=== PATIENT | male | born 1950 | race Caucasian/White ===

== ENCOUNTER 2021-07-16 13:02 | Outpatient (REF) | payer MEDICARE, SELFPAY ==
[2021-07-16 13:45] LABS: MANUAL DIFF FLAG NO
[2021-07-16 13:53] LABS: Basophils Absolute Auto 0.1 X10*3/uL (0.0-0.2); Basophils Percent Auto 0.8 % (0-2); Eosinophils Absolute Auto 0.6 X10*3/uL (0.0-0.4); Eosinophils Percent Auto 7.3 % (0-4); Hemoglobin 13.9 g/dl (14.0-18.0); Imm Gran Abs Auto 0.02 X10*3/uL (0.00-0.03); Imm Gran Pct Auto 0.3 % (0.0-0.4); Lymphocytes Absolute Auto 1.8 X10*3/uL (1.2-4.9); Lymphocytes Percent Auto 23.2 % (20-40); Mean Corpuscular HGB Conc 33.1 g/dl (31.0-36.0); Mean Corpuscular Hemoglobin 29.8 pg (27.0-33.0); Mean Corpuscular Volume 90.1 fL (80.0-98.0); Mean Platelet Volume 9.4 fL (9.4-12.4); Monocytes Absolute Auto 0.5 X10*3/uL (0.1-1.2); Monocytes Percent Auto 6.5 % (2-11); Neutrophils Absolute Auto 4.8 x10*3/uL (2.0-8.3); Neutrophils Percent Auto 61.9 % (45-73); Platelet Count 325 X10*3/uL (160-400); Red Blood Count 4.66 X10*6/uL (4.60-5.80); White Blood Count 7.7 X10*3/uL (4.8-10.8)
[2021-07-16 14:03] LABS: Appearance Urine CLEAR; Color Urine YELLOW; Glucose Urine UA NEG (NEG); Leukocyte Esterase Urine NEG (NEG); Nitrite Urine NEG (NEG); Specific Gravity - Urine 1.025 (1.005-1.025); Urine Blood NEG (NEG); Urine Ketones NEG (NEG); Urine Protein NEG (NEG-TRACE)
[2021-07-16 14:19] LABS: Alanine Aminotransferase 28 U/L (0-40); Albumin Level 4.4 g/dL (3.5-5.0); Alkaline Phosphatase 83 U/L (39-117); Anion Gap 15 (12-20); Aspartate Amino Transferase 17 U/L (5-37); Bilirubin Total 0.5 mg/dL (0.0-1.0); Blood Urea Nitrogen 18 mg/dL (9-16); Calcium 9.6 mg/dL (8.4-10.2); Carbon Dioxide 22 mmol/L (22-29); Chloride 106 mmol/L (96-108); Cholesterol 166 mg/dL; Estimated Glomerular Filt Rate > 60; Glucose Fasting 106 mg/dL (60-99); HDL Cholesterol 51 mg/dL; LDL Cholesterol Calculated 100 mg/dl; Potassium 4.4 mmol/L (3.3-5.1); Sodium 139 mmol/L (135-145); Total Protein 7.2 g/dL (6.5-8.0); Triglycerides 75 mg/dL
[2021-07-16 14:33] LABS: Prostate Specific Antigen Scr 1.01 ng/mL (<0.05-4.0); TSH reflex Free T4 1.77 uIU/mL (0.32-4.0); Vitamin D 25-OH Total 44.5 ng/mL (>30)
== END 2021-07-16 13:03 | disposition home or self-care (01) ==
LOC: HO.HMGCLDS 13:02
PROVIDERS: Visit Provider Internal Medicine
DX: Z00.00 Encounter for general adult medical examination without abnormal findings (principal); Z12.5 Encounter for screening for malignant neoplasm of prostate; I10 Essential (primary) hypertension; E78.00 Pure hypercholesterolemia, unspecified; E55.9 Vitamin D deficiency, unspecified
CPT/HCPCS: 36415; 80053; 80061; 81003; 82306; 84153; 84443; 85025

== ENCOUNTER 2021-08-13 16:10 | Outpatient (REF) | payer MEDICARE, SELFPAY ==
--- NOTE | ~2021-08-13 | XR_ITS ---
EXAMINATION: XR CHEST CLINICAL INFORMATION: Chest pain COMPARISON: None TECHNIQUE: 2 views of the chest were obtained. FINDINGS: A thoracic kyphosis is present with degenerative changes in the spine. Otherwise, no significant abnormality is noted involving the heart, lungs, mediastinum, bony thorax or soft tissues. XR/XR chest 2V IMPRESSION: No acute intrathoracic disease
== END 2021-08-13 16:11 | disposition home or self-care (01) ==
LOC: HO.HMGCX 16:10
PROVIDERS: PCP Internal Medicine; Visit Provider Internal Medicine
DX: R07.89 Other chest pain (principal); M41.9 Scoliosis, unspecified; L57.0 Actinic keratosis
CPT/HCPCS: 71046

== ENCOUNTER 2022-01-23 13:19 | Outpatient (REF) | payer MEDICARE, SELFPAY ==
[2022-01-23 16:23] LABS: MANUAL DIFF FLAG NO
[2022-01-23 16:27] LABS: Basophils Absolute Auto 0.1 X10*3/uL (0.0-0.2); Basophils Percent Auto 0.9 % (0-2); Eosinophils Absolute Auto 0.5 X10*3/uL (0.0-0.4); Eosinophils Percent Auto 6.9 % (0-4); Hematocrit 41.8 % (42.0-52.0); Hemoglobin 13.7 g/dl (14.0-18.0); Imm Gran Abs Auto 0.02 X10*3/uL (0.00-0.03); Imm Gran Pct Auto 0.3 % (0.0-0.4); Lymphocytes Absolute Auto 1.4 X10*3/uL (1.2-4.9); Lymphocytes Percent Auto 20.3 % (20-40); Mean Corpuscular HGB Conc 32.8 g/dl (31.0-36.0); Mean Corpuscular Hemoglobin 29.9 pg (27.0-33.0); Mean Corpuscular Volume 91.3 fL (80.0-98.0); Mean Platelet Volume 9.8 fL (9.4-12.4); Monocytes Absolute Auto 0.4 X10*3/uL (0.1-1.2); Monocytes Percent Auto 5.9 % (2-11); Neutrophils Absolute Auto 4.6 x10*3/uL (2.0-8.3); Neutrophils Percent Auto 65.7 % (45-73); Platelet Count 332 X10*3/uL (160-400); Red Blood Count 4.58 X10*6/uL (4.60-5.80); Red Cell Distribution Width 12.8 % (11.0-16.0)
[2022-01-23 16:37] LABS: Appearance Urine Clear; Color Urine Yellow; Glucose Urine UA Negative (Negative); Leukocyte Esterase Urine Negative (Negative); Nitrite Urine Negative (Negative); PH 6.5 (5.0-9.0); Specific Gravity - Urine 1.015 (1.005-1.025); Urine Blood Negative (Negative); Urine Ketones Negative (Negative); Urine Protein Negative (Neg-Trace)
[2022-01-23 16:40] LABS: Alanine Aminotransferase 23 U/L (0-40); Albumin Level 4.3 g/dL (3.5-5.0); Alkaline Phosphatase 80 U/L (39-117); Anion Gap 17 (12-20); Aspartate Amino Transferase 18 U/L (5-37); Bilirubin Total 0.7 mg/dL (0.0-1.0); Blood Urea Nitrogen 16 mg/dL (9-16); Calcium 9.1 mg/dL (8.4-10.2); Carbon Dioxide 24 mmol/L (22-29); Chloride 104 mmol/L (96-108); Cholesterol 160 mg/dL; Estimated Glomerular Filt Rate > 60; Glucose Fasting 103 mg/dL (60-99); HDL Cholesterol 53 mg/dL; LDL Cholesterol Calculated 92 mg/dl; Potassium 4.5 mmol/L (3.3-5.1); Sodium 140 mmol/L (135-145); Triglycerides 78 mg/dL
[2022-01-23 17:02] LABS: TSH reflex Free T4 1.52 uIU/mL (0.32-4.0)
== END 2022-01-23 13:20 | disposition home or self-care (01) ==
LOC: HO.HMGCLDS 13:19
PROVIDERS: PCP Internal Medicine; Visit Provider Internal Medicine
DX: E78.00 Pure hypercholesterolemia, unspecified (principal); E55.9 Vitamin D deficiency, unspecified; I10 Essential (primary) hypertension
CPT/HCPCS: 36415; 80053; 80061; 81003; 82306; 84443; 85025

== ENCOUNTER 2022-02-11 11:49 | Day surgery (SDC) | payer MEDICARE, SELFPAY ==
[2022-02-05 15:03] VITALS: BMI 23.6
--- NOTE | 2022-02-10 12:08 | HO.ANESPROP2 ---
Documented by User: Margarita Ocasio NP 02/10/22 12:10 HPI - Anesthesia Eval Consult details Narrative: 71yo M for Upper Endoscopy PMFSH Active Problems Active Problems: All Active Problems (Updated 11/06/21 @ 16:29 by Jones Payne MD) Annual physical exam (Acute) Keratosis (Acute) Chest heaviness (Acute) Branch retinal vein occlusion (Acute) Vitamin D deficiency (Acute) Washington's esophagus with dysplasia (Acute) Kyphoscoliosis (Acute) Eosinophilia (Acute) Pure hypercholesterolemia (Acute) Benign essential hypertension (Acute) GERD without esophagitis (Acute) Past Medical History Medical History Washington's esophagus with dysplasia Benign essential hypertension Eosinophilia GERD without esophagitis Kyphoscoliosis Pure hypercholesterolemia Vitamin D deficiency Family History Family History Father Dementia Mother Heart disease Surgical History Surgical History H/O colonoscopy History of esophagogastroduodenoscopy (EGD) Hx of appendectomy (~1978) Social History Social History Housing: House Alcohol intake: current Alcohol intake frequency: does not drink Patient Tobacco Use Status: Never used Tobacco e-Cigarette/Vaping Use: Never Used Second Hand Smoke Exposure: Yes Use of substances other than those prescribed or required for medical reasons: No Are you DNR?: No Advance Directives: No Advance Directives Information Provided: Yes Current occupational status: retired Cognitive needs: No Hearing needs: No Vision needs: Yes Meds Allergies Allergy/AdvReac Type Severity Reaction Status Date / Time No Known Allergies Allergy Verified 02/11/22 12:04 Home Medications Medication Instructions Recorded Confirmed Last Taken Type aspirin 81 mg tablet,delayed 81 mg PO DAILY 02/05/22 02/11/22 02/04/22 History release multivitamin 1 tab PO DAILY 02/05/22 02/11/22 Unknown History omega 3-eul-tlz-fish oil 1,200 mg 1 cap PO DAILY 02/05/22 02/11/22 02/04/22 History (144 mg-216 mg) capsule (Fish Oil) Exam Exam Date and Time: February 10, 2022 1208 Height,Weight and Vital Signs: Height 5 ft 8 in Weight 70.307 kg Pertinent Lab Results Pertinent Lab Results: Laboratory Tests 01/23/22 01/23/22 13:27 13:27 WBC 7.0 Hgb 13.7 L Hct 41.8 L Plt Count 332 Sodium 140 Potassium 4.5 Chloride 104 Carbon Dioxide 24 BUN 16 Creatinine 0.92 Assessment and Plan Assessment Anesthesia Assessment: Chart Reviewed Documented by User: Pedro Mason MD 02/11/22 12:36 [facility] Past Medical History Medical History Washington's esophagus with dysplasia Benign essential hypertension Eosinophilia GERD without esophagitis Kyphoscoliosis Pure hypercholesterolemia Vitamin D deficiency Family History Family History Father Dementia Mother Heart disease Family history of problems with anesthesia: No Surgical History Surgical History H/O colonoscopy History of esophagogastroduodenoscopy (EGD) Hx of appendectomy (~1978) History of Problems with Anesthesia: No Social History Social History Housing: House Alcohol intake: current Alcohol intake frequency: does not drink Patient Tobacco Use Status: Never used Tobacco e-Cigarette/Vaping Use: Never Used Second Hand Smoke Exposure: Yes Use of substances other than those prescribed or required for medical reasons: No Are you DNR?: No Advance Directives: No Advance Directives Information Provided: Yes Current occupational status: retired Cognitive needs: No Hearing needs: No Vision needs: Yes Meds Allergies Allergy/AdvReac Type Severity Reaction Status Date / Time No Known Allergies Allergy Verified 02/11/22 12:04 Home Medications Medication Instructions Recorded Confirmed Last Taken Type aspirin 81 mg tablet,delayed 81 mg PO DAILY 02/05/22 02/11/22 02/04/22 History release multivitamin 1 tab PO DAILY 02/05/22 02/11/22 Unknown History omega 8-wkx-pmy-fish oil 1,200 mg 1 cap PO DAILY 02/05/22 02/11/22 02/04/22 History (144 mg-216 mg) capsule (Fish Oil) Exam Airway Mallampati Class: II TM Dist: >3cm Neck ROM: Full Loose/Missing/Broken Teeth: No Heart: [id number] Lungs: cta b/l Assessment and Plan Assessment Anesthesia Assessment: Anesthesia Plan Discussed Final Anesthetic Review Family History of Problems with Anesthesia: No History of Problems with Anesthesia: No NPO: Yes ASA Class: III Final Preanesthetic Review: No Changes in Pt Med Stat, Meds/Allgs Chart Reviewed, Consent Obtained/Reviewed and Anes Risks/Benef Reviewed Patient Risk: Intermediate Procedure Risk: Intermediate Assessment/Block/Sedation in SS: Assess/Block/Sedation-SS Anesthetic Plan Anesthetic Plan: MAC: and Agree w/ Assess. and Plan Disposition: Standard PACU
[2022-02-11 12:04] VITALS: BP 160/86; PULSE 104; RESP 16; TEMP 37.3; O2SAT 97; BMI 22.4
[2022-02-11] MEDS: Lactated Ringers 1,000 ML 100 ML IVCONT (12:30)
--- NOTE | 2022-02-11 13:03 | MHC.SHP ---
Pre-Procedural Eval Section A Date of Service: 02/11/22 The patient is an INPATIENT: No Changes since office visit: No Cold of Flu in the past 2 weeks, No New Medical Problems, No Changes in Medication and No Patient answered all questions The History & Physical has been completed within 30 days and I have reviewed it.: No Section B Chief Complaint: barretts Details of Present Illness: see H*P no changes Relevant Family History (Specify if Yes): No Relevant Social History: None Present Medications: see Short Stay Collaborative assessment Medical History: No relevant PMH History of Previous Operations: No relevant previous surgery Allergies: Allergies Allergy/AdvReac Type Severity Reaction Status Date / Time No Known Allergies Allergy Verified 02/11/22 12:04 Review of Systems Sugical H&P ROS: Negative: Constitution, Cardiovascular, Respiratory, Neurological, Psychiatric, Hem-Onc, Allergic/Immunologic, Gastrointestinal, Genitourinary, Musculoskeletal, Integumentary, Endocrine and Eyes/Ears/Nose/Throat Exam Surgical H&P Exam: Normal: HEENT, Normal: Heart, Normal: Lungs, Normal: Extremities, Normal: Abdomen, Normal: Skin and Normal: Neurological Plan Diagnosis/Plan: Unchanged I have reviewed the history and physical and performed a pertinent physical examination on my patient. No changes have occurred unless specified.
--- NOTE | 2022-02-11 13:20 | PM.OP ---
Brief Operative Note Date of Service: 02/11/22 Pre-op diagnosis: barretts Post-op diagnosis: same Surgeon: Eduard Bailey Anesthesia: MAC Was an Concrete Products Dispatcher used for this Procedure?: No Estimated blood loss (mL): 5 Pathology: other Condition: stable Disposition: PACU
[2022-02-11 13:21] VITALS: BP 90/50; PULSE 80; RESP 16; TEMP 36.7; O2SAT 95
[2022-02-11 13:36] VITALS: BP 91/48; PULSE 86; RESP 20; O2SAT 94
[2022-02-11 13:51] VITALS: BP 111/57; PULSE 79; RESP 18; TEMP 36.7; O2SAT 97
--- NOTE | 2022-02-12 01:22 | OP_ITS ---
SURGEON: Eduard Bailey MD INDICATIONS: Washington esophagus. PREOPERATIVE DIAGNOSIS: POSTOPERATIVE DIAGNOSIS: PROCEDURE PERFORMED: Upper endoscopy with biopsy on 02/11/22. ESTIMATED BLOOD LOSS: COMPLICATIONS: ANESTHESIA: Monitored anesthesia care. ASSISTANTS: SPECIMENS: DESCRIPTION OF PROCEDURE: History and physical performed. The risks and benefits of the procedure were explained to the patient. Informed consent was obtained. The patient was placed in the left lateral decubitus position. The Olympus video gastroscope was introduced into the esophagus, stomach, and duodenum. Examination was performed. The scope was removed. He tolerated the procedure well and was returned to the recovery area in stable condition. FINDINGS: Esophagus: The esophagus was normal. There was a 5 mm segment of Washington esophagus extending above the EG junction and a slight nonobstructive Schatzki ring. Biopsies were obtained in all 4 quadrants at the level and just above the EG junction. There were no raised lesions or ulcerated areas. Stomach: The stomach showed no evidence of masses or ulcers. There were multiple benign-appearing less than 5 mm gastric polyps, 2 of these were biopsied. Duodenum: The bulb and second portion were normal. IMPRESSION: Washington esophagus, gastric polyps. RECOMMENDATION: 1. Follow up the biopsy results. 2. Continue omeprazole 20 mg b.i.d. MD ROSE Mcdowell/MAKENZIE / [id number] MTDD
== END 2022-02-11 14:36 | disposition home or self-care (01) ==
PROVIDERS: PCP Internal Medicine; Visit Provider Internal Medicine Gastroenterology
PROC: 0DJ08ZZ Inspection of Upper Intestinal Tract, Via Natural or Artificial Opening Endoscopic (ICD-10-PCS; CPT 43235; principal; 2022-02-11 13:00)
DX: K22.70 Barrett's esophagus without dysplasia (principal); K31.7 Polyp of stomach and duodenum; K21.9 Gastro-esophageal reflux disease without esophagitis; I10 Essential (primary) hypertension; E78.00 Pure hypercholesterolemia, unspecified; Z79.899 Other long term (current) drug therapy; Z79.82 Long term (current) use of aspirin; Z90.49 Acquired absence of other specified parts of digestive tract
CPT/HCPCS: 43239; 88305; 88342

== ENCOUNTER 2022-06-08 10:37 | Outpatient (REF) | payer MEDICARE, SELFPAY ==
[2022-06-08 11:18] LABS: MANUAL DIFF FLAG NO
[2022-06-08 11:43] LABS: Basophils Absolute Auto 0.1 X10*3/uL (0.0-0.2); Basophils Percent Auto 0.6 % (0-2); Eosinophils Absolute Auto 0.4 X10*3/uL (0.0-0.4); Eosinophils Percent Auto 4.9 % (0-4); Hematocrit 42.3 % (42.0-52.0); Imm Gran Abs Auto 0.02 X10*3/uL (0.00-0.03); Imm Gran Pct Auto 0.2 % (0.0-0.4); Lymphocytes Absolute Auto 1.7 X10*3/uL (1.2-4.9); Lymphocytes Percent Auto 21.3 % (20-40); Mean Corpuscular HGB Conc 33.1 g/dl (31.0-36.0); Mean Corpuscular Hemoglobin 29.6 pg (27.0-33.0); Mean Corpuscular Volume 89.4 fL (80.0-98.0); Mean Platelet Volume 9.5 fL (9.4-12.4); Monocytes Absolute Auto 0.4 X10*3/uL (0.1-1.2); Monocytes Percent Auto 5.4 % (2-11); Neutrophils Absolute Auto 5.5 x10*3/uL (2.0-8.3); Neutrophils Percent Auto 67.6 % (45-73); Platelet Count 316 X10*3/uL (160-400); Red Blood Count 4.73 X10*6/uL (4.60-5.80); White Blood Count 8.1 X10*3/uL (4.8-10.8)
[2022-06-08 12:21] LABS: Alanine Aminotransferase 25 U/L (0-40); Albumin Level 4.2 g/dL (3.5-5.0); Alkaline Phosphatase 70 U/L (39-117); Anion Gap 10 (12-20); Aspartate Amino Transferase 15 U/L (5-37); Bilirubin Total 0.6 mg/dL (0.0-1.0); Blood Urea Nitrogen 16 mg/dL (9-16); Calcium 9.2 mg/dL (8.4-10.2); Carbon Dioxide 26 mmol/L (22-29); Chloride 108 mmol/L (96-108); Estimated Glomerular Filt Rate > 60; Glucose Random 102 mg/dL (60-115); Potassium 4.4 mmol/L (3.3-5.1); Sodium 140 mmol/L (135-145); Total Protein 6.7 g/dL (6.5-8.0)
[2022-06-08 12:26] LABS: Erythrocyte Sedimentation Rate 6 MM/HR (0-15)
[2022-06-08 12:34] LABS: Folate 16.7 ng/mL (> or = 4.0); Vitamin B12 364 pg/mL (200-900)
== END 2022-06-08 10:38 | disposition home or self-care (01) ==
LOC: HO.HMGCLDS 10:37
PROVIDERS: PCP Internal Medicine; Visit Provider Internal Medicine
DX: R42 Dizziness and giddiness (principal); I10 Essential (primary) hypertension; E53.8 Deficiency of other specified B group vitamins
CPT/HCPCS: 36415; 80053; 82607; 82746; 84443; 85025; 85652

== ENCOUNTER 2022-06-27 13:47 | Outpatient (REF) | payer MEDICARE, SELFPAY ==
--- NOTE | ~2022-06-27 | XR_ITS ---
EXAMINATION: XR chest 2V CLINICAL INFORMATION: Reason for Exam I10 - Essential (primary) hypertension COMPARISON: Prior chest x-ray 08/13/2021 TECHNIQUE: XR chest 2V Lungs and Daniela: Both lungs are clear. Pleura: Normal. Costophrenic angles are sharp. No pneumothorax. Heart: The heart is normal in size. Mediastinum: The mediastinum is within normal limits.. Bones: Spondylosis of dorsal spine. No fractures. XR/XR chest 2V IMPRESSION: No radiographic evidence of acute cardiopulmonary disease.
== END 2022-06-27 13:48 | disposition home or self-care (01) ==
LOC: HO.HMGCX 13:47
PROVIDERS: PCP Internal Medicine; Visit Provider Internal Medicine
DX: I10 Essential (primary) hypertension (principal); R07.89 Other chest pain; R06.00 Dyspnea, unspecified
CPT/HCPCS: 71046

== ENCOUNTER → 2022-06-30 13:08 | Outpatient (REF) | payer MEDICARE, SELFPAY ==
--- NOTE | 2022-06-30 13:11 | CA_ITS ---
Transthoracic Echocardiogram Patient (Last, First, Middle): Ender Castellanos J Gender: Male Date of : 1950 Age: 71 Procedure Date: 06/30/2022 Procedure Type: Transthoracic Echocardiogram Location: OP Height: 177.8 cm Weight: 70.31 kg BSA: 1.87 m2 Heart Rate: 100 bpm BP: 170 / 70 mmHg Produce Laborer: COMFORT Arnett MD: Jones Payne MD Woven Wood Shade Assembler: Jamie Rothman MD Symptoms: I10 - Essential (primary) hypertension Study Quality: Fair ECG Rhythm: Tachycardia Conclusions: - 1. Normal LV systolic function with grade 1 diastolic dysfunction 2. Normal cardiac valvular Doppler 3. Normal RV systolic pressure 4. No gross pericardial effusion Findings Left Ventricle Normal left ventricular size, thickness, and systolic function. The visually estimated ejection fraction is between 65-70%. Spectral Doppler is indicative of an impaired relaxation filling pattern. E/E prime ratio is <8, consistent with normal filling pressures. Evidence suggests grade I (mild) diastolic dysfunction. Right Ventricle Normal right ventricular cavity size and systolic function. Atria The left atrium is normal in size. There is no evidence of interatrial shunt. The right atrium is normal in size. Aortic Valve Normal aortic valve structure and function. There is no aortic valve stenosis. There is no aortic valve regurgitation. Mitral Valve There is mild anterior mitral leaflet thickening. There is trace mitral valve regurgitation. There is no mitral valve stenosis. Pulmonic Valve The pulmonic valve was not well visualized. Tricuspid Valve Likely normal tricuspid valve structure and function. There is trace tricuspid valve regurgitation. The right ventricular systolic pressure is normal. The right ventricular systolic pressure is 15 mmHg. Normal right atrial pressure. There is no evidence of pulmonary hypertension. Great Vessels All visible segments of the aorta are normal in size. The pulmonary artery was not well visualized. Venous The inferior vena cava is normal in size and collapses greater than 50% with inspiration. Pericardium/Pleural There is no evidence of pericardial effusion. Prior Study Comparison No prior study available for comparison. Measurements 2D Linear Measurements IVSd: 0.90 0.6-0.9/0.6-1.0 cm LVIDd: 4.60 3.9-5.3/4.2-5.9 cm LVIDd Index: 2.46 2.4-3.2/2.2-3.1 cm/m2 LVIDs: 2.08 2.0-3.6 cm LVPWd: 0.96 0.7-1.1 cm LA Diam: 3.40 2.7-3.8/3.0-4.0 cm LAIDs Index: 1.82 1.5-2.3 cm/m2 LV Mass: 179.40 67-162/88-224 g LV Mass Index: 95.94 43-95/49-115 g/m2 LVOT Diam: 2.00 3.0+(-)1.3 cm 2D Systolic Function EF 4C: 69.00 >55% EF 2C: 65.80 >55% EF BiP: 67.30 >55% Mitral Valve MV Pk E: 0.76 MV PK A: 0.96 MV Decel Time: 212.00 E/A: 0.80 E'Lateral: 11.10 E'Medial: 7.51 E/E' Med: 10.10 E/E' Lat: 6.80 PHT: 62.00 MVA PHT: 3.55 Decel [place]: 3.58 Aortic Valve AoV Pk Sg: 1.69 AoV Mn Sg: 1.30 AoV VTI: 0.32 AoV Pk Grad: 11.00 Aov Mn Grad: 7.00 JUAN DIEGO Cont.VTI: 2.18 LVOT LVOT Pk Sg: 1.45 LVOT Mn Sg: 0.85 LVOT VTI: 0.22 LVOT Pk Grad: 8.00 LVOT Mn Grad: 4.00 LVOT Diam: 2.00 LVOT Area: 3.14 Diastolic Function MV Pk E: 0.76 MV Pk A: 0.96 E/A: 0.80 E'Medial: 7.51 E/E' Med: 10.10 E' Laterial: 11.10 E/E' Lat: 6.80 Right Ventricle TAPSE (mm): 28.20 TVS' Sg: 12.10 Tricuspid Valve TR Pk Sg: 1.71 TR Pk Grad: 12.00 RA Press: 3.00 RVSP: 15.00 Great Vessels Aorta Sinus of Valsalva: 3.20 2.0-3.5 cm Ao Asc: 3.20 2.1-3.4 cm Pulmonary Valve PV Pk Sg: 1.76 Peak PV Grad: 12.00 Updated in Other Vendor System with Status of Final Jamie Rothman MD electronically signed on 07/01/2022 4:56:45 PM with status of Final
== END ==
LOC: HO.CARD 13:08
PROVIDERS: PCP Internal Medicine; Visit Provider Internal Medicine
DX: R07.89 Other chest pain (principal); I10 Essential (primary) hypertension
CPT/HCPCS: 93306

== ENCOUNTER 2022-08-12 13:17 | Outpatient (REF) | payer MEDICARE, SELFPAY ==
[2022-08-12 17:10] LABS: Appearance Urine Clear; Color Urine Yellow; Glucose Urine UA Negative (Negative); Leukocyte Esterase Urine Negative (Negative); Nitrite Urine Negative (Negative); PH 5.5 (5.0-9.0); Urine Blood Negative (Negative); Urine Ketones Negative (Negative); Urine Protein Negative (Neg-Trace)
[2022-08-12 17:10] LABS: MANUAL DIFF FLAG NO
[2022-08-12 17:22] LABS: Basophils Absolute Auto 0.1 X10*3/uL (0.0-0.2); Basophils Percent Auto 0.7 % (0-2); Eosinophils Absolute Auto 0.4 X10*3/uL (0.0-0.4); Hematocrit 39.8 % (42.0-52.0); Hemoglobin 13.3 g/dl (14.0-18.0); Imm Gran Abs Auto 0.02 X10*3/uL (0.00-0.03); Imm Gran Pct Auto 0.2 % (0.0-0.4); Lymphocytes Absolute Auto 1.5 X10*3/uL (1.2-4.9); Lymphocytes Percent Auto 17.6 % (20-40); Mean Corpuscular HGB Conc 33.4 g/dl (31.0-36.0); Mean Corpuscular Hemoglobin 30.6 pg (27.0-33.0); Mean Corpuscular Volume 91.7 fL (80.0-98.0); Mean Platelet Volume 9.9 fL (9.4-12.4); Monocytes Absolute Auto 0.5 X10*3/uL (0.1-1.2); Monocytes Percent Auto 5.4 % (2-11); Neutrophils Absolute Auto 6.2 x10*3/uL (2.0-8.3); Neutrophils Percent Auto 72.1 % (45-73); Platelet Count 349 X10*3/uL (160-400); Red Blood Count 4.34 X10*6/uL (4.60-5.80); Red Cell Distribution Width 13.4 % (11.0-16.0); White Blood Count 8.7 X10*3/uL (4.8-10.8)
[2022-08-12 17:34] LABS: Alanine Aminotransferase 25 U/L (0-40); Albumin Level 4.3 g/dL (3.5-5.0); Alkaline Phosphatase 78 U/L (39-117); Anion Gap 14 (12-20); Aspartate Amino Transferase 16 U/L (5-37); Bilirubin Total 0.6 mg/dL (0.0-1.0); Blood Urea Nitrogen 18 mg/dL (9-16); Calcium 9.2 mg/dL (8.4-10.2); Carbon Dioxide 23 mmol/L (22-29); Chloride 108 mmol/L (96-108); Cholesterol 168 mg/dL; Estimated Glomerular Filt Rate > 60; Glucose Fasting 105 mg/dL (60-99); HDL Cholesterol 59 mg/dL; LDL Cholesterol Calculated 96 mg/dl; Potassium 4.7 mmol/L (3.3-5.1); Sodium 140 mmol/L (135-145); Total Protein 6.7 g/dL (6.5-8.0); Triglycerides 69 mg/dL
[2022-08-12 17:50] LABS: TSH reflex Free T4 1.35 uIU/mL (0.32-4.0); Vitamin D 25-OH Total 45.3 ng/mL (>30)
== END 2022-08-12 13:18 | disposition home or self-care (01) ==
LOC: HO.HMGCLDS 13:17
PROVIDERS: PCP Internal Medicine; Visit Provider Internal Medicine
DX: Z00.00 Encounter for general adult medical examination without abnormal findings (principal); I10 Essential (primary) hypertension; E78.00 Pure hypercholesterolemia, unspecified; N40.0 Benign prostatic hyperplasia without lower urinary tract symptoms; R30.0 Dysuria; E55.9 Vitamin D deficiency, unspecified; Z12.5 Encounter for screening for malignant neoplasm of prostate
CPT/HCPCS: 36415; 80053; 80061; 81003; 82306; 84153; 84443; 85025

== ENCOUNTER 2022-09-07 13:52 | Outpatient (REF) | payer MEDICARE, SELFPAY ==
--- NOTE | ~2022-09-07 | US_ITS ---
Renal Doppler was dictated with renal ultrasound.
--- NOTE | ~2022-09-07 | US_ITS ---
EXAMINATION: US RETROPERITONEAL LIMITED (RENAL ONLY)/RENAL DOPPLER CLINICAL INFORMATION: Essential hypertension. COMPARISON: Renal ultrasound 07/11/2007. TECHNIQUE: Real-time imaging of the kidneys. FINDINGS: RENAL ULTRASOUND: Right Kidney: 12.7 x 6.9 x 6.6 cm (SAG x AP x TRV). The kidney is normal in size, contour, and echogenicity. Renal cortical thickness is normal. No renal calculi or hydronephrosis. There are at least 3 anechoic cysts. An upper pole cyst measures 5.2 x 5.0 x 4.9 cm. A midpole cyst measures 6.2 x 5.9 x 5.6 cm. Lower pole cyst measures 2.3 x 2.4 x 2.3 cm. There is mild caliectasis. Left Kidney: 10.9 x 6.0 x 5.4 cm (SAG x AP x TRV). The kidney is normal in size, contour, and echogenicity. Renal cortical thickness is normal. No calculi or focal parenchymal lesions. No hydronephrosis. There is an anechoic cyst in the lower pole measuring 4.8 x 3.0 x 3.0 cm. RENAL DOPPLER: Right Kidney: Peak renal artery velocity proximal renal artery segment measures 214 cm/s, mid segment measures 132 cm/s, and distal segment measures 124 cm/s. The average resistive index is 0.7. Renal aortic ratio cannot be calculated due to elevated mid aorta velocity. Left Kidney: Peak renal artery velocity proximal renal artery measures 159 cm/s, mid segment measures 148 cm/s, and distal segment measures 76 cm/s. Average resistive index is 0.7. Renal aortic ratio cannot be calculated due to elevated mid aorta velocity. Mid aorta velocity measures 130 cm/s. US/US renal BI IMPRESSION: Bilateral renal cysts with mild caliectasis of the right kidney. No echogenic renal calculi or hydronephrosis. Bilateral renal cysts were visualized on previous ultrasound exam 07/11/2007. On renal Doppler exam, there is elevated proximal renal artery velocity of 214 cm/s but other parameters are normal. Findings are suspicious for mild stenosis at the origin. Normal left renal Doppler parameters suggestive of no renal artery stenosis. Elevated mid aortic velocity may be secondary to atherosclerosis and essential hypertension.
== END 2022-09-07 13:53 | disposition home or self-care (01) ==
LOC: HO.HMGCX 13:52
PROVIDERS: PCP Internal Medicine; Visit Provider Internal Medicine
DX: I10 Essential (primary) hypertension (principal)
CPT/HCPCS: 76775; 93975

== ENCOUNTER 2022-12-02 14:34 | Outpatient (AMB) | payer MEDICARE, SELFPAY ==
--- NOTE | 2022-12-02 14:35 | A.OFFVIS_ITS ---
Intake Vital Signs 12/02/22 14:36 Height 5 ft 10 in Weight 151 lb 3.794 oz BMI 21.7 BP 122/64 Blood Pressure Location Lt brachial Position Sitting Pulse 98 Intake Visit Reasons: NPV/Dizziness and giddiness/Elmer Intake Note: NPV w/ EKG Client Services Coordinator Required: No Accompanied by: Self / Same As Patient Allergies No Known Allergies Allergy (Verified 12/02/22 14:38) Medication List - Last Reconciled 12/02/22 by Louis Munoz MD amlodipine 10 mg PO DAILY 90 days aspirin 81 mg PO DAILY atorvastatin 20 mg PO DAILY lisinopril 40 mg PO DAILY 90 days multivitamin 1 tab PO DAILY omega 8-ewo-rkg-fish oil 1,200 (144-216) mg (Fish Oil) 1 cap PO DAILY sertraline 25 mg PO DAILY 90 days trazodone 75 mg (1.5 x 50 mg) PO BEDTIME PRN 90 days HPI HPI Comments History of Present Illness Details Ender is here for consultation regarding feeling dizzy. He states that he has been dizzy for the last 8-9 months or so. Initially, he was was only dizzy during morning times or so but after that started getting dizzy throughout the day. He can happen when he is getting up from sitting position. Also or in other times like when he is bending down. Can also happen when he is rolling in bed and turning his head extra. Overall, difficult to say if it is from blood pressure changes or from vertigo as he also states he is feeling as room spinning around. He gets some chest pressure/discomfort at different times. Sometimes at rest sometimes with food and sometimes exertion. Again very variable presentation. No known coronary disease myocardial infarction. With regard to blood pressure medications, he was on lisinopril in the past and more recently amlodipine as ordered according to him. However, he cannot correlate medication changes with symptoms. [facility] Medical History Washington's esophagus with dysplasia Benign essential hypertension Eosinophilia GERD without esophagitis Kyphoscoliosis Pure hypercholesterolemia Vitamin D deficiency Surgical History H/O colonoscopy History of esophagogastroduodenoscopy (EGD) Hx of appendectomy (~1978) Family History Father Dementia Mother Heart disease Social History Housing: House Alcohol intake: current Alcohol intake frequency: does not drink Patient Tobacco Use Status: Never used Tobacco e-Cigarette/Vaping Use: Never Used Second Hand Smoke Exposure: Yes Current occupational status: retired Cognitive needs: No Hearing needs: No Vision needs: Yes Review of Systems Const Denies chills, Denies daytime sleepiness, Denies fatigue, Denies fever(s), Denies frequent falls, Denies night sweats, Denies snoring, Denies weakness, Denies weight gain and Denies weight loss Eyes Denies loss of vision ENT Denies dizziness and Denies hearing loss Card Denies chest pain, Denies chest pain with activity, Denies syncope, Denies rapid heart rate, Denies edema, Denies claudication, Denies leg edema, Denies lightheadedness, Denies palpitations, Denies dyspnea, Denies dyspnea on exertion and Denies orthopnea Resp Denies cough, Denies excessive phlegm production, Denies dyspnea, Denies dyspnea on exertion, Denies snoring and Denies wheezing GI Denies abdominal pain, Denies hematochezia, Denies change in bowel habits, Denies change in stool character, Denies heartburn, Denies nausea and Denies vomiting Denies hematuria, Denies dysuria and Denies urinary frequency Musc Denies arthralgias, Denies muscle weakness, Denies numbness and Denies tingling Skin/Breast Denies nail changes and Denies rash Neuro Denies Abnormal speech present, Denies dizziness, Denies syncope, Denies frequent falls, Denies loss of vision, Denies memory loss, Denies numbness, Denies tingling and Denies weakness Psych Denies depression and Denies memory loss Endo Denies fatigue and Denies palpitations Aller/Immun Denies wheezing Physical Exam Vital Signs: Last Vital Signs Pulse 98 12/02/22 14:36 BP 122/64 12/02/22 14:36 BMI result Body Mass Index 21.7 Const General: comfortable and no acute distress Orientation/consciousness: patient oriented x3 HEENT Other: Unremarkable Head: Yes normal to inspection Neck Neck: Yes normal visual inspection Chest Chest palpation & inspection: normal inspection of the chest Resp Auscultation: clear to auscultation bilaterally Cardio Palpation: normal PMI Heart sounds: S1 normal heart sound present, S2 normal heart sound present, no gallops, no murmurs and no rubs GI Palpation (GI): Soft to palpation Back/Spine/Pelvis Other: unremarkable Skin General skin exam: no rashes or lesions noted Neuro General: patient oriented x3 Speech: No Abnormal speech present Extrem General: Yes normal to inspection Psych Mental Status: mental status grossly normal Office Procedures EKG Details: EKG with sinus rhythm at 98/Min; rightward axis; cannot exclude old septal infarct; [place] [id number], Complete Assessment & Plan Assessment & Plan (1) Dizziness of unknown cause: Code(s): R42 - Dizziness and giddiness (2) Chest heaviness: Code(s): R07.89 - Other chest pain (3) Benign essential hypertension: Code(s): I10 - Essential (primary) hypertension Plan Echocardiogram with LVEF of 65-70%. Mild diastolic dysfunction but otherwise unremarkable. In the renal ultrasound, description of possible mild stenosis of the ostium on right side. With regard to the dizziness, not clear if it is for blood pressure changes during changing positions or if it is vertigo. We discussed about changing medications but he would rather leave it as is now. Consider ENT consultation for vertigo assessment. Otherwise, can take lisinopril in the morning and amlodipine at nighttime. The nighttime amlodipine can be cut down to 5 mg daily and he can see if he feels any better. If he feels better, then may have to accept a slightly higher blood pressure to avoid symptoms. Otherwise, we will get a carotid ultrasound as well. With regard to the chest heaviness, again variable presentation at random times including rest, with food, with activity. Difficult to say what it is. We will get an exercise stress perfusion imaging study. Based on the test results, we will plan further care. Orders: Orders US carotid duplex BI Today I65.23 - Occlusion and stenosis of bilateral carotid arteries CA stress test Today R07.2 - Precordial pain, R07.89 - Other chest pain NM cardiolite stress test Today R07.2 - Precordial pain, R07.89 - Other chest p ain Coding Level of Care Code New Pt Level 4 (84445) Diagnoses Dizziness of unknown cause R42 Chest heaviness R07.89 Benign essential hypertension I10 CPT Codes EKG - CPT: 25376-[id number], Complete ([id number])
[2022-12-02 14:36] VITALS: BP 122/64; PULSE 98; BMI 21.7
== END 2022-12-02 15:04 | disposition home or self-care (01) ==
PROVIDERS: PCP Internal Medicine; Referring Provider Internal Medicine; Visit Provider Internal Medicine
DX: R42 Dizziness and giddiness (principal); R07.89 Other chest pain; I10 Essential (primary) hypertension
CPT/HCPCS: 93010; 99204

== ENCOUNTER → 2022-12-02 14:34 | Outpatient (BNVA) | payer MEDICARE, SELFPAY | PROVIDERS: PCP Internal Medicine; Referring Provider Internal Medicine; Visit Provider Internal Medicine | DX: R07.89 Other chest pain (principal); R42 Dizziness and giddiness; I10 Essential (primary) hypertension | CPT/HCPCS: 93005; 99202 ==

== ENCOUNTER 2022-12-09 12:52 | Outpatient (REF) | payer MEDICARE, SELFPAY ==
[2022-12-09 15:59] LABS: MANUAL DIFF FLAG NO
[2022-12-09 16:21] LABS: Basophils Percent Auto 0.6 % (0-2); Eosinophils Absolute Auto 0.4 X10*3/uL (0.0-0.4); Eosinophils Percent Auto 5.2 % (0-4); Hematocrit 39.6 % (42.0-52.0); Hemoglobin 13.1 g/dl (14.0-18.0); Imm Gran Abs Auto 0.01 X10*3/uL (0.00-0.03); Imm Gran Pct Auto 0.1 % (0.0-0.4); Lymphocytes Absolute Auto 1.4 X10*3/uL (1.2-4.9); Lymphocytes Percent Auto 19.6 % (20-40); Mean Corpuscular HGB Conc 33.1 g/dl (31.0-36.0); Mean Corpuscular Hemoglobin 30.6 pg (27.0-33.0); Mean Corpuscular Volume 92.5 fL (80.0-98.0); Mean Platelet Volume 9.9 fL (9.4-12.4); Monocytes Absolute Auto 0.4 X10*3/uL (0.1-1.2); Neutrophils Absolute Auto 4.8 x10*3/uL (2.0-8.3); Neutrophils Percent Auto 68.5 % (45-73); Platelet Count 336 X10*3/uL (160-400); Red Blood Count 4.28 X10*6/uL (4.60-5.80); Red Cell Distribution Width 13.3 % (11.0-16.0)
[2022-12-09 16:49] LABS: Appearance Urine Clear; Color Urine Yellow; Glucose Urine UA Negative (Negative); Leukocyte Esterase Urine Negative (Negative); Nitrite Urine Negative (Negative); PH 5.5 (5.0-9.0); Urine Blood Negative (Negative); Urine Ketones Negative (Negative); Urine Protein Negative (Neg-Trace)
[2022-12-09 17:13] LABS: Alanine Aminotransferase 102 U/L (0-40); Albumin Level 4.1 g/dL (3.5-5.0); Alkaline Phosphatase 151 U/L (39-117); Anion Gap 12 (12-20); Aspartate Amino Transferase 21 U/L (5-37); Bilirubin Total 0.5 mg/dL (0.0-1.0); Blood Urea Nitrogen 21 mg/dL (9-16); Calcium 9.7 mg/dL (8.4-10.2); Carbon Dioxide 24 mmol/L (22-29); Chloride 109 mmol/L (96-108); Cholesterol 147 mg/dL; Estimated Glomerular Filt Rate > 60; Glucose Fasting 101 mg/dL (60-99); HDL Cholesterol 58 mg/dL; LDL Cholesterol Calculated 77 mg/dl; Potassium 4.2 mmol/L (3.3-5.1); Sodium 141 mmol/L (135-145); Triglycerides 62 mg/dL
[2022-12-09 17:28] LABS: TSH reflex Free T4 1.63 uIU/mL (0.32-4.0)
== END 2022-12-09 12:53 | disposition home or self-care (01) ==
LOC: HO.HMGCLDS 12:52
PROVIDERS: PCP Internal Medicine; Visit Provider Internal Medicine
DX: R30.0 Dysuria (principal); E78.00 Pure hypercholesterolemia, unspecified; I10 Essential (primary) hypertension
CPT/HCPCS: 36415; 80053; 80061; 81003; 84443; 85025

== ENCOUNTER 2022-12-16 11:35 | Outpatient (REF) | payer MEDICARE, SELFPAY ==
--- NOTE | ~2022-12-16 | US_ITS ---
EXAMINATION: US ABDOMEN COMPLETE CLINICAL INFORMATION: Elevation of levels of liver transaminase levels. COMPARISON: Ultrasound retroperitoneal limited with renal Doppler 09/07/2022. TECHNIQUE: Real-time imaging of the abdominal viscera. FINDINGS: PANCREAS: Normal head and body, the tail is obscured by bowel gas. ABDOMINAL AORTA: The abdominal aorta is normal caliber. Mild atherosclerotic plaque is seen within the abdominal aorta. INFERIOR VENA CAVA: Visualized portions are normal. LIVER: The liver is normal in size. The liver contour is normal. Parenchymal echogenicity is normal. 0.8 x 1.0 x 1.3 cm simple cyst is seen in the left lobe. There is no intrahepatic biliary duct dilatation seen. GALLBLADDER: There are multiple mobile gallstones within the gallbladder. There is mild thickening of the wall of the gallbladder, measuring 0.5 cm. No sonographic Stevenson's sign. The gallbladder is physiologically distended without evidence of polyps or pericholecystic fluid. COMMON BILE DUCT: Normal in caliber in the gena hepatis measuring 0.3 cm in diameter. The proximal common bile duct measures 0.6 cm. RIGHT KIDNEY: There is a mildly complex upper pole cyst measuring 4.4 x 4.5 x 4.6 cm, previously measured 5.2 x 5.0 x 4.9 cm. There is a mildly complex cysts in the mid pole, measures 6.4 x 4.7 x 5.4 cm, previously measured 6.2 x 5.9 x 5.6 cm.. There is a simple 2.1 x 2.1 x 2.2 cm cyst in the mid to lower pole, previously measured 2.3 x 2.4 x 2.3 cm. No hydronephrosis or renal calculi. The kidney measures 13.2 cm in maximum dimension. LEFT KIDNEY: A 2.6 x 2.0 x 1.9 cm simple cyst is seen in the lower pole. No follow-up imaging of this finding is recommended. No hydronephrosis or renal calculi. The kidney measures 10.4 cm in maximum dimension. SPLEEN: Normal. The spleen measures 7.9 cm in maximum dimension. FREE FLUID: None. US/US abdomen complete IMPRESSION: 1. 1.3 cm simple cyst in the left lobe of the liver. No follow-up imaging of this finding is recommended. 2. Cholelithiasis with mild thickening of the wall of the gallbladder. No sonographic Stevenson's sign or pericholecystic fluid. 3. Multiple right renal cysts, as described above. 4. The appearance of the left kidney is within normal limits.
--- NOTE | ~2022-12-16 | US_ITS ---
EXAMINATION: US EXTRACRANIAL CAROTID DUPLEX, BILATERAL CLINICAL INFORMATION: Carotid stenosis. COMPARISON: None available. TECHNIQUE: Real-time ultrasound and Doppler techniques (integrating B-mode 2-D vascular images, Doppler spectral analysis and color-flow Doppler imaging) were utilized to interrogate the extracranial carotid arteries, the vertebral arteries and proximal subclavian arteries bilaterally. The degree of stenosis is determined by criteria similar to NASCET. FINDINGS: Right Side: 1. There is uhct-ir-yumnidsc echogenic atherosclerotic plaque seen in the bifurcation/proximal ICA region. 2. The common carotid artery PSV proximally is 112 cm/s and distally 86 cm/s. 3. The proximal internal carotid artery velocities are 115 cm/s systolic and 28 cm/s diastolic. 4. The proximal external carotid artery PSV is 143 cm/s. 5. The vertebral artery shows antegrade flow. 6. The subclavian artery waveforms are normal. Left Side: 1. There is mild atherosclerotic plaque seen in the bifurcation/proximal ICA region. 2. The common carotid artery PSV proximally is 142 cm/s and distally 108 cm/s. 3. The proximal internal carotid artery velocities are 47 cm/s systolic and 15 cm/s diastolic. 4. The proximal external carotid artery PSV is 140 cm/s. 5. The vertebral artery shows antegradeflow. 6. The subclavian artery waveforms are normal. US/US carotid duplex BI IMPRESSION: 1. RIGHT: Minimal, non-hemodynamically significant stenosis of the proximal right internal carotid artery corresponding to a 0-49% stenosis by velocity criteria. 2. LEFT: Minimal, non-hemodynamically significant stenosis of the proximal left internal carotid artery corresponding to a 0-49% stenosis by velocity criteria.
== END 2022-12-16 11:36 | disposition home or self-care (01) ==
LOC: HO.HMGCX 11:35
PROVIDERS: PCP Internal Medicine; Visit Provider Internal Medicine
DX: R74.01 Elevation of levels of liver transaminase levels (principal); R74.8 Abnormal levels of other serum enzymes; I65.23 Occlusion and stenosis of bilateral carotid arteries
CPT/HCPCS: 76700; 93880

== ENCOUNTER 2022-12-23 13:07 | Outpatient (AMB) | payer MEDICARE, SELFPAY ==
[2022-12-23 13:15] VITALS: BP 112/60; PULSE 100; O2SAT 98; BMI 21.7
--- NOTE | 2022-12-23 13:15 | MHC.PC.OV ---
Vital Signs 12/23/22 13:15 Height 5 ft 10 in Weight 151 lb 4 oz BMI 21.7 BP 112/60 Blood Pressure Location Lt brachial Position Sitting Pulse 100 Pulse Source Pulse Oximeter Pulse Oximetry (%) 98 Oxygen Delivery Method Room Air Intake Visit Reasons: HTN, dizziness, anxiety Vat Operator Required: No Accompanied by: Self / Same As Patient Allergies No Known Allergies Allergy (Verified 12/23/22 14:04) Medication List - Last Reconciled 12/23/22 by Jones Payne MD amlodipine 10 mg PO DAILY 90 days aspirin 81 mg PO DAILY atorvastatin 20 mg PO DAILY lisinopril 40 mg PO DAILY 90 days multivitamin 1 tab PO DAILY omega 8-nvd-unr-fish oil 1,200 (144-216) mg (Fish Oil) 1 cap PO DAILY sertraline 25 mg PO DAILY 90 days trazodone 75 mg (1.5 x 50 mg) PO BEDTIME PRN 90 days Tobacco use date assessed: 12/23/22 Fall risk assessment: No Falls in past year Last assessed Fall Risk: 12/23/22 Dental Screening Dental Screen Date: 12/23/22 Did you have a dental visit in the last 12 months?: Yes Did you have a dental problem in the last 6 months where you did not have access to dental care?: No Was dental information given to patient?: Patient has dentist HPI HTN, dizziness, anxiety HPI Details Patient comes in today for his follow up visit States that he continues to experience recurrent bouts of dizziness and that these occur mostly with changes in position Has also been experiencing increased pain in his right shoulder and feels that the pain is shooting down his right upper arm States that he's had these for a while now and feels like his shoulder pain has been slowly getting worse He denies any recent injury or trauma to his shoulder or arm States that he feels okay otherwise He denies any headaches Denies any chest pains, no SOB No nausea/vomiting, no abdominal pain No change in bowel habits noted Still feels anxious often; admits that he has not started taking his Sertraline yet as he remains concerned about its potential side effects that he read on the PI of the Rx Had his follow up labs done a couple of weeks ago - to discuss his results Recalls that he saw on the patient portal that he is slightly anemic and would like to have this checked out further [facility] Medical History Washington's esophagus with dysplasia Benign essential hypertension Eosinophilia GERD without esophagitis Kyphoscoliosis Pure hypercholesterolemia Vitamin D deficiency Surgical History H/O colonoscopy History of esophagogastroduodenoscopy (EGD) Hx of appendectomy (~1978) Family History Father Dementia Mother Heart disease Social History Housing: House Alcohol intake: current Alcohol intake frequency: does not drink Patient Tobacco Use Status: Never used Tobacco e-Cigarette/Vaping Use: Never Used Second Hand Smoke Exposure: Yes Current occupational status: retired Cognitive needs: No Hearing needs: No Vision needs: Yes Questionnaire PHQ-9 Over the last 2 weeks, how often have you been bothered by any of the following problems? 1. Little interest or pleasure in doing things: not at all 2. Feeling down, depressed, or hopeless: not at all 3. Trouble falling or staying asleep, or sleeping too much: not at all 4. Feeling tired or having little energy: not at all 5. Poor appetite or overeating: not at all 6. Feeling bad about yourself - or that you are a failure or have let yourself or your family down: not at all 7. Trouble concentrating on things, such as reading the newspaper or watching television: not at all 8. Moving or speaking so slowly that other people could have noticed. Or the opposite - being so fidgety or restless that you have been moving around a lot more than usual: not at all 9. Thoughts that you would be better off or of hurting yourself in some way: not at all Total score: 0 Depression Screening Interpretation: Negative 37747 - PHQ-9 Billing: Yes Source: Developed by Drs. Domenico Martin, Kaylah Wiley, Jayce Centeno and colleagues, with an educational raul from [employer]. Thrive Questionnaire Date Thrive assessed: 12/23/22 I am a: Patient What is your living situation today?: I have a steady place to live Within the past 12 months, did the food you bought not last and you didn't have the money to get more?: Never true Within the past 12 months, did you worry whether your food would run out before you got money to buy more?: Never true Do you have trouble paying for medicines?: No Do you have trouble getting transportation to medical appointments?: No Do you have trouble paying your heating and electricity bill?: No Do you have trouble taking care of your child, family member or friend?: No Do you have trouble with day-to-day activities such as bathing, preparing meals, shopping, managing finances, etc.?: No Are you currently unemployed and looking for a job?: No Are you interested in more education?: No Please select the resources that you would like help with: None Currently or been in a relationship where the following occur: no concerns reported AUDIT C Alcohol Use Questionnaire (AUDIT-C) 1. How often do you have a drink containing alcohol?: Never 3. How often do you have six or more drinks on one occasion?: Never Total Score: 0 Score Reviewed/Action Taken: Yes JOSE-7 AMB Questionnaire JOSE-7 Date JOSE - 7 assessed: 12/23/22 Feeling nervous, anxious, or on edge: 0 = Not at all Not being able to stop or control worryin = Not at all Worrying too much about different things: 0 = Not at all Trouble relaxin = Not at all Being so restless that it is hard to sit still: 0 = Not at all Becoming easily annoyed or irritable: 0 = Not at all Feeling afraid as if something awful might happen: 0 = Not at all Total JOSE-7 score (0-4 normal; 5-9 mild; 10-14 moderate; 15-21 severe): 0 Source: Developed by Drs. Domenico Martin, Kaylah Wiley, Jayce Centeno and colleagues, with an educational raul from [employer]. Review of Systems Const Denies chills, Denies fatigue, Denies fever(s) and Denies headache(s) Eyes Denies blurry vision ENT Denies dysphagia, Reports dizziness (recurrent, especially with changes in position), Denies otalgia, Denies headache(s), Denies neck pain, Denies odynophagia and Denies sore throat Card Denies chest pain, Denies palpitations and Denies dyspnea Resp Denies cough and Denies dyspnea GI Denies abdominal pain, Denies constipation, Denies dysphagia, Denies heartburn, Denies diarrhea, Denies nausea, Denies odynophagia and Denies vomiting Denies dysuria, Denies nocturia and Denies urinary frequency Musc Details: (+) right upper arm pain, especially proximally Reports arthralgias (right shoulder) and Denies neck pain Neuro Reports dizziness (recurrent, especially with changes in position) and Denies headache(s) Psych Reports anxiety Endo Denies fatigue and Denies palpitations Physical exam (Primary Care) Vital Signs: Last Vital Signs Pulse 100 12/23/22 13:15 BP 112/60 12/23/22 13:15 Pulse Ox 98 12/23/22 13:15 Oxygen Delivery Method Room Air 12/23/22 13:15 BMI result Body Mass Index 21.7 Tobacco/Smoking Status: Tobacco use Status Tobacco use date assessed 12/23/22 12/23/22 13:23 Patient Tobacco Use Status Never used Tobacco 12/23/22 13:23 e-Cigarette/Vaping Use Never Used 12/23/22 13:23 PHQ-9: PHQ-9 Score PHQ-9: Total score 0 12/29/22 09:10 Depression Screening Interpretation: Negative Thrive Assessment: Date of Thrive Assessment Date Thrive assessed 12/23/22 12/23/22 13:23 Currently or been in a relationship where the following occur: no concerns reported Const General: no acute distress and alert HENMT Ears: TM's normal bilaterally and EAC's normal Throat: Yes posterior oropharynx normal and Yes tonsils normal (no TP congestion) Neck Neck: Yes no lymphadenopathy and Yes supple Thyroid: Thyroid normal Resp Auscultation: clear to auscultation bilaterally, no rales and no wheezes Cardio Rate: regular rate Rhythm: regular rhythm Heart sounds: no murmurs GI Palpation (GI): Soft to palpation and nontender Auscultation: normal bowel sounds General: Yes no CVA tenderness Back/Spine/Pelvis Back: no CVA tenderness Thoracic/Lumbar Spine: kyphosis Skin Rashes: no rashes Extrem General: Yes no clubbing, cyanosis or edema Right upper extremity: shoulder/upper arm Details: tenderness Location: of the A-C joint and of the proximal humerus; no swelling Results Reviewed Results Reviewed: Laboratory Tests 12/09/22 12/09/22 12/09/22 13:00 13:00 13:05 WBC 7.0 Hgb 13.1 L Hct 39.6 L Plt Count 336 Sodium 141 Potassium 4.2 Creatinine 1.03 Estimated GFR > 60 Fasting Glucose 101 H Calcium 9.7 AST 21 ALT 102 H Alkaline Phosphatase 151 H Triglycerides 62 Cholesterol 147 LDL Cholesterol, Calc 77 HDL Cholesterol 58 TSH 1.63 Ur Specific [place] 1.020 Urine Protein Negative Urine Glucose (UA) Negative Urine Blood Negative Assessment and Plan Assessment & Plan (1) Resistant hypertension: Code(s): I10 - Essential (primary) hypertension Plan: Reinforced low sodium diet - goal is systolic BP of at least 130 to 140 mm or less Has been on Lisinopril 40 mg QD and Amlodipine 10 mg QD but he continues to complain of recurrent dizziness, especially with changes in position Chest x-rays and echocardiogram done a few months ago both came back normal Renal doppler done a few months ago also revealed no significant findings - there is elevated proximal renal artery velocity of 214 cm/s but other parameters are normal. Findings are suspicious for mild stenosis at the origin. Normal left renal Doppler parameters suggestive of no renal artery stenosis. Elevated mid aortic velocity may be secondary to atherosclerosis and essential hypertension. He was also referred to cardiology for further evaluation and management and cardiology recommended ENT consultation for possible vertigo Carotid US done revealed no significant hemodynamic findings They have advised patient to try splitting up his BP meds and take his Lisinopril 40 mg in AM and Amlodipine in PM; have also suggested that he try cutting his Amlodipine down to 5 mg QD to see if it will help with his dizziness and if it does, then he is to stay on 5 mg QD He will also be sent for an exercise stress perfusion study for further evaluation (2) Dizziness of unknown cause: Code(s): R42 - Dizziness and giddiness Plan: Work ups done so far, including chest x-rays, echocardiogram, renal doppler and carotid US, all came back normal/negative Patient has been advised bby cardiology to consider see ENT for further evaluation of his dizziness - to r/o vertigo He will also be scheduled for an exercise perfusion study for further evaluation and has been advised to try splitting up his BP meds and take his Lisinopril 40 mg in AM and Amlodipine in PM; have also suggested that he try cutting his Amlodipine down to 5 mg QD to see if it will help with his dizziness and if it does, then he is to stay on 5 mg QD (3) Pure hypercholesterolemia: Code(s): E78.00 - Pure hypercholesterolemia, unspecified Plan: Results of his labs done a couple of weeks ago reviewed and discussed with patient Reinforced low cholesterol diet Continue Atorvastatin 20 mg QD and Fish Oil Capsules 1200 mg BID Will recheck his fasting lipids in 4 months for follow up (4) Washington's esophagus with dysplasia: Code(s): K22.719 - Washington's esophagus with dysplasia, unspecified Plan: Seen on EGD last done on 02/11/2022 (was previously also done on 05/20/2018) - Bx still showed (+) Washington's esophagus with no dysplasia Will need repeat EGD again in 3 years (2024) for follow up Continue Omeprazole 20 mg BID Follow up with GI (Dr. Bailey) as scheduled (5) Kyphoscoliosis: Code(s): M41.9 - Scoliosis, unspecified Plan: Patient's kyphoscoliosis has been progressing over the past few years He has been advised that if this continues to get worse, it can significantly impact his overall lung volume and affect his breathing Chest x-rays in August 2021 revealed (+) thoracic kyphosis with degenerative changes in the spine. Otherwise, no significant abnormality is noted involving the heart, lungs, mediastinum, bony thorax or soft tissues Repeat chest x-rays in June 2022 also came out normal (6) Anemia: Code(s): D64.9 - Anemia, unspecified Qualifiers: Anemia type: unspecified type Qualified Code(s): D64.9 - Anemia, unspecified Plan: His anemia is mostly mild and his iron indices have been normal He does have eosinophilia at times, possibly due to allergies but with his heightened anxiety, he is requesting to have these issues checked out further - states that it is for his own peace of mind Will check Hgb electrophoresis together with his routine follow up labs in 4 months for further evaluation (7) Vitamin D deficiency: Code(s): E55.9 - Vitamin D deficiency, unspecified Plan: Continue Vitamin D3 1000 units QD (8) Right shoulder pain: Code(s): M25.511 - Pain in right shoulder Qualifiers: Chronicity: unspecified Qualified Code(s): M25.511 - Pain in right shoulder Plan: Will send him for x-rays of the right shoulder for further evaluation (9) Right arm pain: Code(s): M79.601 - Pain in right arm Plan: Will send him for x-rays of the right humerus for further evaluation (10) Insomnia: Code(s): G47.00 - Insomnia, unspecified Qualifiers: Insomnia type: unspecified Qualified Code(s): G47.00 - Insomnia, unspecified Plan: Sleep hygiene reinforced He is advised that his recent trouble sleeping may actually be due to his anxiety, which appears to be increasing lately Continue Trazodone 75 mg Q HS (11) Anxiety: Code(s): F41.9 - Anxiety disorder, unspecified Plan: Advised again that his increased anxiety may be a contributor to his current high blood pressure readings as well as his trouble sleeping and even his recurrent dizziness Patient appears to be constantly worried and anxious about everything in general and even the slightest alteration to his daily routine tends to bother him a lot He was started on Sertaline 25 mg QD a couple of months ago but he stopped taking it after a couple of days because it made him feel slightly tired than usual Have advised patient to go back on Sertraline 25 mg QD and that if mild fatigue is his only reaction to the medication, this may be temporary and should improve after a few days with continuation of the medication but he has not yet tried to go back on the Rx Patient states that he would like to think about this some more Plan Follow up in 4 months Orders: Orders XR humerus RT 12/23/22 M25.511 - Pain in right shoulder, M79.601 - Pain in right arm XR shoulder RT min 2V 12/23/22 M25.511 - Pain in right shoulder, M79.601 - Pain in right arm Complete Blood Count Auto Diff 4 Months D64.9 - Anemia, unspecified, I10 - Essential (primary) hypertension Hemoglobin Electrophoresis 4 Months D64.9 - Anemia, unspecified Comprehensive [place]. Panel Fast 4 Months E78.00 - Pure hypercholesterolemia, unspecified Lipid Panel 4 Months E78.00 - Pure hypercholesterolemia, unspecified Vitamin D 25-OH Total 4 Months E55.9 - Vitamin D deficiency, unspecified UA CC w/rflx Micro + Cult 4 Months R30.0 - Dysuria Coding Level of Care Code Est Pt Level 4 (11298) Diagnoses Resistant hypertension I10 Dizziness of unknown cause R42 Pure hypercholesterolemia E78.00 [place]'s esophagus with dysplasia K22.719 Kyphoscoliosis M41.9 Anemia D64.9 Anemia type: unspecified type Vitamin D deficiency E55.9 Right shoulder pain M25.511 Chronicity: unspecified Right arm pain M79.601 Insomnia G47.00 Insomnia type: unspecified Anxiety F41.9
== END 2022-12-23 14:30 | disposition home or self-care (01) ==
PROVIDERS: PCP Internal Medicine; Visit Provider Internal Medicine
DX: I10 Essential (primary) hypertension (principal); K22.719 Barrett's esophagus with dysplasia, unspecified; E55.9 Vitamin D deficiency, unspecified; F41.9 Anxiety disorder, unspecified; R42 Dizziness and giddiness; E78.00 Pure hypercholesterolemia, unspecified; M41.9 Scoliosis, unspecified; D64.9 Anemia, unspecified; M25.511 Pain in right shoulder; M79.601 Pain in right arm; G47.00 Insomnia, unspecified
CPT/HCPCS: 99214

== ENCOUNTER 2022-12-30 12:03 | Outpatient (REF) | payer MEDICARE, SELFPAY ==
--- NOTE | ~2022-12-30 | XR_ITS ---
EXAMINATION: XR SHOULDER, RIGHT XR HUMERUS, RIGHT CLINICAL INFORMATION: Right shoulder and upper arm pain COMPARISON: Chest radiography 06/27/2022, shoulder radiographs 01/14/2018 TECHNIQUE: AP external rotation, Grashey, scapular Y, and axillary views of the right shoulder. AP and lateral views of the right humerus. FINDINGS: Bony mineralization is normal. No fracture or dislocation is seen involving the shoulder. The glenohumeral joint appears intact. There is superior subluxation of the head of the humerus suggesting rotator cuff tear. The acromioclavicular joint projects in normal alignment. There is a spur at the undersurface of the acromion. The periarticular soft tissues appear unremarkable. No fracture or focal osseous lesion is seen in the humerus. The elbow joint appears intact. Soft tissues appear unremarkable. XR/XR shoulder RT min 2V IMPRESSION: No fracture or dislocation. Superior subluxation of the head of the humerus, suspicious for rotator cuff tear.
--- NOTE | ~2022-12-30 | XR_ITS ---
EXAMINATION: XR SHOULDER, RIGHT XR HUMERUS, RIGHT CLINICAL INFORMATION: Right shoulder and upper arm pain COMPARISON: Chest radiography 06/27/2022, shoulder radiographs 01/14/2018 TECHNIQUE: AP external rotation, Grashey, scapular Y, and axillary views of the right shoulder. AP and lateral views of the right humerus. FINDINGS: Bony mineralization is normal. No fracture or dislocation is seen involving the shoulder. The glenohumeral joint appears intact. There is superior subluxation of the head of the humerus suggesting rotator cuff tear. The acromioclavicular joint projects in normal alignment. There is a spur at the undersurface of the acromion. The periarticular soft tissues appear unremarkable. No fracture or focal osseous lesion is seen in the humerus. The elbow joint appears intact. Soft tissues appear unremarkable. XR/XR humerus RT IMPRESSION: No fracture or dislocation. Superior subluxation of the head of the humerus, suspicious for rotator cuff tear.
== END 2022-12-30 12:04 | disposition home or self-care (01) ==
LOC: HO.HMGCX 12:03
PROVIDERS: PCP Internal Medicine; Visit Provider Internal Medicine
DX: M79.601 Pain in right arm (principal); M25.511 Pain in right shoulder
CPT/HCPCS: 73030; 73060

== ENCOUNTER → 2023-01-07 10:19 | Outpatient (REF) | payer MEDICARE, SELFPAY ==
--- NOTE | ~2023-01-07 | NM_ITS ---
Exercise Myocardial perfusion study Indication: Precordial chest pain to evaluate for myocardial ischemia Technique: The patient was brought in for an exercise perfusion study on 01/07/2023. Patient performed exercise as per Magno protocol and was injected 25 mCi of sestamibi was given intravenously one target HR was achieved. Images were obtained using the SPECT gamma camera interlaced with the gating device. Images were obtained in supine position. Resting perfusion study was performed on 01/08/2023. Patient was administered 25 mCi of sestamibi intravenously at rest. Images were then obtained in supine position. Images obtained with and without CT attenuation. Total DLP 82 mGy-cm Images were processed with the software and compared side to side in short axis, horizontal long axis and vertical long axis views. Findings: The stress perfusion study showed non attenuated images show normal uptake of radiotracer in all segments of LV myocardium. Attenuation corrected images show minimally reduced uptake in the apex of the LV myocardium. The gated study shows normal LV systolic function with calculated LVEF of 70%. LV cavity is normal in size. The gated study shows normal systolic wall thickening and contraction of all segments. There is no transient ischemic dilation. Resting study shows no change in perfusion pattern compared to stress perfusion study. Gating at rest reveals normal systolic wall motion with ejection fraction at 71%. The findings are consistent with normal myocardial perfusion. NM/NM urszula perf SPECT rest & str Impression: 1. Normal myocardial perfusion 2. Gated LVEF is 70% 3. Transient ischemic dilatation not present Stress EKG is negative for ischemia
--- NOTE | 2023-01-07 10:22 | CA_ITS ---
Acquisition Time: 2023-01-07 10:53:56 Total Exercise Time: 00:04:59 Test Indications: CP Medications: AMLODIPINE ASA ATORVASTATIN LISINOPRIL SERTRALINE TRAZADONE Protocol: ESTHER Max HR: 133 BPM 89% of Pred: 148 BPM Max BP: 164/064 mmHG Max Work Load: 4.6 METS Exercise stress test exercise 4 min 59 sec of Esther protocopl stage 1 achieving 85% MPHR, without anginal ysmptoms, without arrhythmias, with normotensive response to exercise, with downsloping in lead 3. Nuclear images pending. Test reviewed with Dr. Rothman. Slight horizontal ST depression during exercise and recovery; could be non-specific Referred By: Myah Chaves Overread By: MYAH CHAVES
== END ==
LOC: HO.CARD 10:19
PROVIDERS: PCP Internal Medicine; Visit Provider Internal Medicine
DX: R07.2 Precordial pain (principal); R07.89 Other chest pain
CPT/HCPCS: 78452; 93017; A9500; J0280; J2785

== ENCOUNTER → 2023-01-07 10:22 | Outpatient (BNV) | payer MEDICARE, SELFPAY | PROVIDERS: PCP Internal Medicine; Visit Provider Internal Medicine | DX: R07.2 Precordial pain (principal) | CPT/HCPCS: 78452; 93016; 93018 ==

== ENCOUNTER 2023-01-14 14:05 | Outpatient (REF) | payer MEDICARE, SELFPAY ==
[2023-01-14 16:30] LABS: Alanine Aminotransferase 21 U/L (0-40); Albumin Level 3.9 g/dL (3.5-5.0); Alkaline Phosphatase 65 U/L (39-117); Aspartate Amino Transferase 17 U/L (5-37); Bilirubin Direct 0.1 mg/dL (0.0-0.5); Bilirubin Total 0.4 mg/dL (0.0-1.0); Total Protein 6.5 g/dL (6.5-8.0)
== END 2023-01-14 14:06 | disposition home or self-care (01) ==
LOC: HO.HMGCLDS 14:05
PROVIDERS: PCP Internal Medicine; Visit Provider Internal Medicine
DX: R74.8 Abnormal levels of other serum enzymes (principal); R74.01 Elevation of levels of liver transaminase levels
CPT/HCPCS: 36415; 80076

== ENCOUNTER 2023-02-03 13:54 | Outpatient (AMB) | payer MEDICARE, SELFPAY ==
--- NOTE | 2023-02-03 13:57 | MHC.OFFVIS ---
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 Recently seen for dizziness. This has been present for the last year or so. Initially, he had only the morning hours but then almost throughout the day. Can happen when he is trying to get up from sitting position, bending down extra. Can also however happen when he is rolling in bed and turning his head extra. Not very clear if it is because of blood pressure changes or something like vertigo. These episodes still happen. He has also had some chest discomfort symptoms at different times including at rest, with food, exertion and overall variable. For meds, he has been on lisinopril for a while but over the last year, he has been on amlodipine. He believes that the symptoms of dizziness started well before the amlodipine and hence not related to the medication. [facility] Medical History Washington's esophagus with dysplasia Benign essential hypertension Eosinophilia GERD without esophagitis Kyphoscoliosis Pure hypercholesterolemia Vitamin D deficiency Surgical History History of esophagogastroduodenoscopy (EGD) H/O colonoscopy Hx of appendectomy (~1978) Family History Father Dementia Mother Heart disease Social History Housing: House Alcohol intake: current Alcohol intake frequency: does not drink Patient Tobacco Use Status: Never used Tobacco e-Cigarette/Vaping Use: Never Used Second Hand Smoke Exposure: Yes Current occupational status: retired Cognitive needs: No Hearing needs: No Vision needs: Yes Review of Systems Const Denies weakness ENT Denies dizziness Card Denies chest pain, Denies chest pain with activity, Denies syncope, Denies rapid heart rate, Denies pedal edema, Denies edema, Denies leg edema, Denies lightheadedness, Denies palpitations, Denies dyspnea, Denies dyspnea on exertion and Denies orthopnea Resp Denies cough, Denies dyspnea and Denies dyspnea on exertion GI Denies hematochezia and Denies change in stool character Musc Denies abnormal gait, Denies muscle cramps, Denies muscle weakness, Denies numbness, Denies radiating pain into limb and Denies tingling Neuro Denies abnormal gait, Denies dizziness, Denies syncope, Denies numbness, Denies tingling and Denies weakness Endo Denies palpitations Physical Exam Vital Signs: Last Vital Signs Pulse 82 02/03/23 14:00 BP 132/64 02/03/23 14:00 BMI result Body Mass Index 21.6 Const General: comfortable and no acute distress Orientation/consciousness: patient oriented x3 HEENT Other: Unremarkable Head: Yes normal to inspection Neck Neck: Yes normal visual inspection Chest Chest palpation & inspection: normal inspection of the chest Resp Auscultation: clear to auscultation bilaterally Cardio Palpation: normal PMI Heart sounds: S1 normal heart sound present, S2 normal heart sound present, no gallops, no murmurs and no rubs GI Palpation (GI): Soft to palpation Back/Spine/Pelvis Other: unremarkable Skin General skin exam: no rashes or lesions noted Neuro General: patient oriented x3 Extrem General: Yes normal to inspection Psych Mental Status: mental status grossly normal Assessment & Plan Assessment & Plan (1) Dizziness of unknown cause: Code(s): R42 - Dizziness and giddiness (2) Chest heaviness: Code(s): R07.89 - Other chest pain (3) Benign essential hypertension: Code(s): I10 - Essential (primary) hypertension Plan Cardiac and vascular studies reviewed. Echocardiogram with LVEF of 65-70%. Mild diastolic dysfunction but otherwise unremarkable. In the stress test, he was able to exercise for 4.6 Mets with nonspecific EKG changes. Perfusion imaging was completely normal. He did not get any angina. Carotid ultrasound does not show any significant stenosis. In the renal ultrasound, description of possible mild stenosis of the ostium on right side. With regard to the dizziness, difficult to say if it is blood pressure change causing the symptom or vertigo as the presentation so variable. He can try to cut back on either the amlodipine or lisinopril dosing and see if that helps. Also to stagger the doses so he can take 1 in the morning and the other in the evening or vice versa. If no changes, then probably not the medication. In that case, consider ENT consultation. With regard to the chest heaviness, we would presentation with rest, food, activity. As perfusion imaging is unremarkable, we can clinically monitor for now. If this is more suggestive of exertional discomfort in the future, then reassess. Plan discussed with patient in detail and he understands. Total time spent including review of data, counseling, documentation, coordination care-32 minutes. Coding Level of Care Code Est Pt Level 4 (74020) Diagnoses Dizziness of unknown cause R42 Chest heaviness R07.89 Benign essential hypertension I10
[2023-02-03 14:00] VITALS: BP 132/64; PULSE 82; BMI 21.6
== END 2023-02-03 14:57 | disposition home or self-care (01) ==
PROVIDERS: PCP Internal Medicine; Visit Provider Internal Medicine
DX: R42 Dizziness and giddiness (principal); R07.89 Other chest pain; I10 Essential (primary) hypertension
CPT/HCPCS: 99214

== ENCOUNTER → 2023-02-03 13:54 | Outpatient (BNVA) | payer MEDICARE, SELFPAY | PROVIDERS: PCP Internal Medicine; Visit Provider Internal Medicine | DX: R42 Dizziness and giddiness (principal); R07.89 Other chest pain; I10 Essential (primary) hypertension | CPT/HCPCS: 99212 ==

== ENCOUNTER 2023-04-09 12:23 | Outpatient (REF) | payer MEDICARE, SELFPAY ==
[2023-04-09 13:47] LABS: MANUAL DIFF FLAG NO
[2023-04-09 13:55] LABS: Appearance Urine Clear; Color Urine Yellow; Glucose Urine UA Negative (Negative); Leukocyte Esterase Urine Negative (Negative); Nitrite Urine Negative (Negative); PH 5.5 (5.0-9.0); Specific Gravity - Urine 1.015 (1.005-1.025); Urine Blood Negative (Negative); Urine Ketones Negative (Negative); Urine Protein Negative (Neg-Trace)
[2023-04-09 13:55] LABS: Basophils Absolute Auto 0.1 X10*3/uL (0.0-0.2); Basophils Percent Auto 0.7 % (0-2); Eosinophils Absolute Auto 0.6 X10*3/uL (0.0-0.4); Hematocrit 43.5 % (42.0-52.0); Hemoglobin 14.2 g/dl (14.0-18.0); Imm Gran Abs Auto 0.02 X10*3/uL (0.00-0.03); Imm Gran Pct Auto 0.2 % (0.0-0.4); Lymphocytes Absolute Auto 1.6 X10*3/uL (1.2-4.9); Lymphocytes Percent Auto 20.2 % (20-40); Mean Corpuscular HGB Conc 32.6 g/dl (31.0-36.0); Mean Corpuscular Hemoglobin 29.7 pg (27.0-33.0); Mean Platelet Volume 9.6 fL (9.4-12.4); Monocytes Absolute Auto 0.5 X10*3/uL (0.1-1.2); Monocytes Percent Auto 6.3 % (2-11); Neutrophils Absolute Auto 5.3 x10*3/uL (2.0-8.3); Neutrophils Percent Auto 65.6 % (45-73); Platelet Count 346 X10*3/uL (160-400); Red Blood Count 4.78 X10*6/uL (4.60-5.80); Red Cell Distribution Width 12.6 % (11.0-16.0); White Blood Count 8.1 X10*3/uL (4.8-10.8)
[2023-04-09 14:34] LABS: Calcium 9.4 mg/dL (8.4-10.2); Chloride 108 mmol/L (96-108); Sodium 142 mmol/L (135-145)
[2023-04-09 14:40] LABS: Alanine Aminotransferase 19 U/L (0-40); Albumin Level 4.2 g/dL (3.5-5.0); Alkaline Phosphatase 73 U/L (39-117); Anion Gap 13 (12-20); Aspartate Amino Transferase 14 U/L (5-37); Bilirubin Total 0.3 mg/dL (0.0-1.0); Blood Urea Nitrogen 19 mg/dL (9-16); Carbon Dioxide 25 mmol/L (22-29); Cholesterol 166 mg/dL (<200); Estimated Glomerular Filt Rate > 60; Glucose Fasting 107 mg/dL (60-99); HDL Cholesterol 60 mg/dL (>40); LDL Cholesterol Calculated 94 mg/dL (<100); Total Protein 7.3 g/dL (6.5-8.0); Triglycerides 60 mg/dL (<150)
[2023-04-09 15:57] LABS: Vitamin D 25-OH Total 65.7 ng/mL (>30)
[2023-04-12 15:33] LABS: Hemoglobin 14.3 g/dL (13.2-17.1); MCV 90.3 fL (80.0-100.0); RBC 4.76 Million/uL (4.20-5.80); RDW 12.2 % (11.0-15.0)
== END 2023-04-09 12:24 | disposition home or self-care (01) ==
LOC: HO.HMGCLDS 12:23
PROVIDERS: PCP Internal Medicine; Visit Provider Internal Medicine
DX: I10 Essential (primary) hypertension (principal); D64.9 Anemia, unspecified; E78.00 Pure hypercholesterolemia, unspecified; R30.0 Dysuria; E55.9 Vitamin D deficiency, unspecified
CPT/HCPCS: 36415; 80053; 80061; 81003; 82306; 83020; 85014; 85018; 85025; 85041

== ENCOUNTER 2023-05-20 12:55 | Outpatient (AMB) | payer MEDICARE, SELFPAY ==
--- NOTE | 2023-05-20 13:00 | A.OFFVIS_ITS ---
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 He states his right shoulder hurts more than the left. He had x rays done over the summer. 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 He thinks he may have injured his right shoulder about 3 months ago. He cannot comfortably use his right shoulder for overhead or reaching activities. He describes pain and weakness with such activities. [facility] Medical History Washington's esophagus with dysplasia Benign essential hypertension Eosinophilia GERD without esophagitis Kyphoscoliosis Pure hypercholesterolemia Vitamin D deficiency Surgical History History of esophagogastroduodenoscopy (EGD) H/O colonoscopy Hx of appendectomy (~1978) Family History Father Dementia Mother Heart disease Social History (System 05/17/23 @ 14:02 by Betty Quiles) Housing: House Alcohol intake: current Alcohol intake frequency: does not drink Patient Tobacco Use Status: Never used Tobacco e-Cigarette/Vaping Use: Never Used Second Hand Smoke Exposure: Yes Current occupational status: retired Cognitive needs: No Hearing needs: No Vision needs: Yes Review of Systems Const All systems reviewed & are unremarkable except as noted in HPI and below Physical Exam Const General: no acute distress, alert and awake Orientation/consciousness: patient oriented x3 HEENT Head: Yes normocephalic and Yes atraumatic Eyes EOM: EOMs intact bilaterally Resp Effort & Inspection: normal respiratory effort and able to speak in complete sentences Cardio Jugular venous distension: no JVD Skin General skin exam: turgor normal Rashes: no rashes Neuro General: patient oriented x3 Extrem Other: + drop arm 4/4 strength with ec Psych Appearance: grossly normal Affect: normal affect Attitude: cooperative Results Reviewed Results Reviewed: I personally reviewed relevant radiographs. proximal migration of humeral head Assessment & Plan Assessment & Plan (1) Rotator cuff arthropathy of right shoulder: Code(s): M12.811 - Other specific arthropathies, not elsewhere classified, right shoulder Plan: RTC arthropathy. He feels it was injured just 3 months ago. I think this is highly unlikely but he is adamant. I ordered an MRI to assess his cuff. Plan Prepared for Casimiro Astorga MD by Orlando Duran, senior medical technologist, on 05/20/23 at 1:06 PM, EST. Orders: Orders MR shoulder RT wo con 05/20/23 M12.811 - Other specific arthropathies, not elsewhere classified, right shoulder PT Evaluation and Treatment 05/20/23 M12.811 - Other specific arthropathies, not elsewhere classified, right shoulder Coding Level of Care Code New Pt Level 4 (39788) Diagnoses Rotator cuff arthropathy of right shoulder M12.811
== END 2023-05-20 13:17 | disposition home or self-care (01) ==
PROVIDERS: PCP Internal Medicine; Visit Provider Orthopaedic Surgery
DX: M12.811 Other specific arthropathies, not elsewhere classified, right shoulder (principal)
CPT/HCPCS: 99203

== ENCOUNTER → 2023-05-20 12:55 | Outpatient (BNVA) | payer MEDICARE, SELFPAY | PROVIDERS: PCP Internal Medicine; Visit Provider Orthopaedic Surgery | DX: M12.811 Other specific arthropathies, not elsewhere classified, right shoulder (principal) | CPT/HCPCS: 99202 ==

== ENCOUNTER 2023-06-09 13:45 | Outpatient (REF) | payer MEDICARE, SELFPAY ==
--- NOTE | ~2023-06-09 | MR_ITS ---
EXAMINATION: MR SHOULDER WITHOUT CONTRAST, RIGHT CLINICAL INFORMATION: Right shoulder pain and decreased range of motion following an injury in April 2023. COMPARISON: Right shoulder and right humerus radiographs dated 12/30/2022. TECHNIQUE: MRI of the shoulder without contrast was performed on a high-field scanner. FINDINGS: ROTATOR CUFF: Complete, full-thickness tears of the supraspinatus and infraspinatus tendons measuring up to 5.2 x 6.5 cm (AP by ML) with retraction of the torn tendon fibers proximal to the glenohumeral articulation. Prominent supraspinatus and infraspinatus muscle atrophy. Moderate subscapularis tendinosis with distal linear intrasubstance and bursal surface partial tearing measuring up to 1.7 cm in ML dimension. BICEPS: There appears to be a complete, full-thickness tear of the proximal long head biceps tendon. CORACOACROMIAL ARCH: The undersurface of the acromion is minimally curved with small subchondral spurs. Mild acromioclavicular osteoarthritis. LABRUM/CAPSULE: Blunting and attenuation through the periphery of the labrum diffusely, consistent with degenerative fraying/tearing. GLENOHUMERAL JOINT/MARROW: Superior subluxation of the humeral head related to the rotator cuff tendon tears. Areas of full-thickness articular cartilage loss at the superior humeral head as well as at the inferomedial humeral head. Glenoid articular cartilage signal heterogeneity. Small marginal osteophytes. [id number] joint effusion with mild synovitis. MR/MR shoulder RT wo con IMPRESSION: 1. Complete, full-thickness tears of the supraspinatus and infraspinatus tendons with retraction of the torn tendon fibers proximal to the glenohumeral articulation. Prominent supraspinatus and infraspinatus muscle atrophy. Moderate subscapularis tendinosis with distal linear intrasubstance and bursal surface partial tearing. 2. Complete, full-thickness tear of the proximal long head biceps tendon. 3. Mild acromioclavicular osteoarthritis with small subchondral spurs. 4. Diffuse degenerative fraying/tearing through the periphery of the glenoid labrum. 5. Superior subluxation of the humeral head related to the rotator cuff tendon tears. [id number] glenohumeral osteoarthritis. Moderate to large joint effusion with mild synovitis.
== END 2023-06-09 13:46 | disposition home or self-care (01) ==
LOC: HO.MRI 13:45
PROVIDERS: PCP Internal Medicine; Visit Provider Orthopaedic Surgery
DX: M12.811 Other specific arthropathies, not elsewhere classified, right shoulder (principal)
CPT/HCPCS: 73221

== ENCOUNTER 2023-07-01 14:34 | Outpatient (AMB) | payer MEDICARE, SELFPAY ==
[2023-07-01 14:38] VITALS: BMI 21.5
--- NOTE | 2023-07-01 14:38 | MHC.OFFVIS ---
Intake Vital Signs 07/01/23 14:38 Height 5 ft 10 in Weight 150 lb BMI 21.5 Intake Visit Reasons: OV - Right Shoulder MRI Review Intake Note: Ender is a 72 year old right hand dominant male who presents today for an MRI review of his right shoulder . Allergies No Known Allergies Allergy (Verified 07/01/23 14:38) HPI OV - Right Shoulder MRI Review HPI Details Endre is a 72 year old man who returns for an MRI review of his right RTC arthropathy. He continues to have pain & weakness with overhead & lifting activities. He can abduct his arm to 90 deg however. [facility] Medical History Vitamin D deficiency Washington's esophagus with dysplasia Kyphoscoliosis Eosinophilia Pure hypercholesterolemia Benign essential hypertension GERD without esophagitis Surgical History History of esophagogastroduodenoscopy (EGD) H/O colonoscopy Hx of appendectomy (~1978) Family History Father Dementia Mother Heart disease Social History Housing: House Alcohol intake: current Alcohol intake frequency: does not drink Patient Tobacco Use Status: Never used Tobacco e-Cigarette/Vaping Use: Never Used Second Hand Smoke Exposure: Yes Current occupational status: retired Cognitive needs: No Hearing needs: No Vision needs: Yes Review of Systems Const All systems reviewed & are unremarkable except as noted in HPI and below Physical Exam Vital Signs: BMI result Body Mass Index 21.5 Const General: no acute distress, alert and awake Orientation/consciousness: patient oriented x3 HEENT Head: Yes normocephalic and Yes atraumatic Eyes EOM: EOMs intact bilaterally Resp Effort & Inspection: normal respiratory effort and able to speak in complete sentences Cardio Jugular venous distension: no JVD Skin General skin exam: turgor normal Rashes: no rashes Neuro General: patient oriented x3 Extrem Other: 0-90 with scapular recruitment right shoulder Psych Appearance: grossly normal Affect: normal affect Attitude: cooperative Results Reviewed Results Reviewed: I personally reviewed the MR images. 1. Complete, full-thickness tears of the supraspinatus and infraspinatus tendons with retraction of the torn tendon fibers proximal to the glenohumeral articulation. Prominent supraspinatus and infraspinatus muscle atrophy. Moderate subscapularis tendinosis with distal linear intrasubstance and bursal surface partial tearing. 2. Complete, full-thickness tear of the proximal long head biceps tendon. 3. Mild acromioclavicular osteoarthritis with small subchondral spurs. 4. Diffuse degenerative fraying/tearing through the periphery of the glenoid labrum. 5. Superior subluxation of the humeral head related to the rotator cuff tendon tears. [id number] glenohumeral osteoarthritis. Moderate to large joint effusion with mild synovitis. Assessment & Plan Assessment & Plan (1) Rotator cuff arthropathy of right shoulder: Code(s): M12.811 - Other specific arthropathies, not elsewhere classified, right shoulder Plan: This is a pleasant, healthy and active 72 RHD M with right RTC arthropathy. I discussed this with him and the treatment options including PT, injections and TSA. He is hesitant to contemplate surgery and I discussed the time-frame for recovery. At this point I recommend he continue activity as tolerated and avoid painful lifting/ROM. If his pain worsens he may want to consider injection. He may follow up as needed. Plan Prepared for Casimiro Astorga MD by Orlando Duran, senior medical transcriptionist, on 07/01/23 at 2:41 PM, EST. Coding Level of Care Code Est Pt Level 4 (93325) Diagnoses Rotator cuff arthropathy of right shoulder M12.811
== END 2023-07-01 15:29 | disposition home or self-care (01) ==
PROVIDERS: PCP Internal Medicine; Visit Provider Orthopaedic Surgery
DX: M12.811 Other specific arthropathies, not elsewhere classified, right shoulder (principal)
CPT/HCPCS: 99213

== ENCOUNTER → 2023-07-01 14:34 | Outpatient (BNVA) | payer MEDICARE, SELFPAY | PROVIDERS: PCP Internal Medicine; Visit Provider Orthopaedic Surgery | DX: M12.811 Other specific arthropathies, not elsewhere classified, right shoulder (principal) | CPT/HCPCS: 99212 ==

== ENCOUNTER 2023-08-11 13:14 | Outpatient (REF) | payer MEDICARE, SELFPAY ==
[2023-08-11 16:13] LABS: MANUAL DIFF FLAG NO
[2023-08-11 16:26] LABS: Basophils Absolute Auto 0.1 X10*3/uL (0.0-0.2); Basophils Percent Auto 0.9 % (0-2); Eosinophils Absolute Auto 0.4 X10*3/uL (0.0-0.4); Eosinophils Percent Auto 5.4 % (0-4); Hematocrit 41.2 % (42.0-52.0); Hemoglobin 13.8 g/dl (14.0-18.0); Imm Gran Abs Auto 0.01 X10*3/uL (0.00-0.03); Imm Gran Pct Auto 0.1 % (0.0-0.4); Lymphocytes Absolute Auto 1.7 X10*3/uL (1.2-4.9); Lymphocytes Percent Auto 20.9 % (20-40); Mean Corpuscular HGB Conc 33.5 g/dl (31.0-36.0); Mean Corpuscular Hemoglobin 30.3 pg (27.0-33.0); Mean Corpuscular Volume 90.4 fL (80.0-98.0); Monocytes Absolute Auto 0.5 X10*3/uL (0.1-1.2); Monocytes Percent Auto 5.7 % (2-11); Neutrophils Absolute Auto 5.4 x10*3/uL (2.0-8.3); Platelet Count 351 X10*3/uL (160-400); Red Blood Count 4.56 X10*6/uL (4.60-5.80); Red Cell Distribution Width 13.1 % (11.0-16.0)
[2023-08-11 17:22] LABS: Alanine Aminotransferase 22 U/L (0-40); Albumin Level 4.2 g/dL (3.5-5.0); Alkaline Phosphatase 74 U/L (39-117); Anion Gap 12 (12-20); Aspartate Amino Transferase 15 U/L (5-37); Bilirubin Total 0.6 mg/dL (0.0-1.0); Blood Urea Nitrogen 18 mg/dL (9-16); Calcium 9.2 mg/dL (8.4-10.2); Carbon Dioxide 26 mmol/L (22-29); Chloride 107 mmol/L (96-108); Cholesterol 164 mg/dL (<200); Estimated Glomerular Filt Rate > 60; Glucose Fasting 98 mg/dL (60-99); HDL Cholesterol 57 mg/dL (>40); LDL Cholesterol Calculated 95 mg/dL (<100); Potassium 4.1 mmol/L (3.3-5.1); Sodium 141 mmol/L (135-145); Total Protein 7.1 g/dL (6.5-8.0); Triglycerides 63 mg/dL (<150)
== END 2023-08-11 13:15 | disposition home or self-care (01) ==
LOC: HO.HMGCLDS 13:14
PROVIDERS: PCP Internal Medicine; Visit Provider Internal Medicine
DX: E78.00 Pure hypercholesterolemia, unspecified (principal); D64.9 Anemia, unspecified
CPT/HCPCS: 36415; 80053; 80061; 85025

== ENCOUNTER 2023-08-25 14:17 | Outpatient (AMB) | payer MEDICARE, SELFPAY ==
--- NOTE | 2023-08-25 14:23 | A.OFFPC_ITS ---
Vital Signs 08/25/23 14:25 08/25/23 15:18 Height 5 ft 10 in Weight 153 lb BMI 22.0 BP 110/64 120/76 Blood Pressure Location Lt brachial Lt brachial Position Sitting Sitting Pulse 78 Pulse Source Pulse Oximeter Pulse Oximetry (%) 97 Oxygen Delivery Method Room Air Intake Visit Reasons: follow up, high bp Intake Note: Patient is here to follow up on High Bp, GERD. Corporate Accounting Manager Required: No Receiving Room Clerk: Not Required per policy Accompanied by: Self / Same As Patient Allergies No Known Allergies Allergy (Verified 08/25/23 14:56) Medication List - Last Reconciled 08/25/23 by Jones Payne MD amlodipine 10 mg PO DAILY 90 days aspirin 81 mg PO DAILY lisinopril 40 mg PO DAILY 90 days multivitamin 1 tab PO DAILY omega 3-zen-kzg-fish oil 1,200 (144-216) mg (Fish Oil) 1 cap PO DAILY omeprazole 20 mg PO DAILY rosuvastatin 5 mg PO DAILY 90 days trazodone 75 mg (1.5 x 50 mg) PO BEDTIME PRN 90 days Tobacco use date assessed: 08/25/23 Fall risk assessment: No Falls in past year Last assessed Fall Risk: 08/25/23 Dental Screening Dental Screen Date: 08/25/23 Did you have a dental visit in the last 12 months?: Yes Did you have a dental problem in the last 6 months where you did not have access to dental care?: No Was dental information given to patient?: Patient has dentist HPI follow up, high bp HPI Details Patient comes in today for his follow up visit States that he feels okay He denies any headaches but still has recurrent dizziness - he has an appointment to see ENT (Dr. Rodriguez) next month on 09/20/2023 for further evaluation Denies any chest pains, no SOB No nausea/vomiting, no abdominal pain No change in bowel habits noted He still has increased right shoulder pain - MRI done recently revealed (+) rotator cuff tear and OA changes Needs his Omeprazole Rx refilled He had his follow up labs done a couple of weeks ago - to discuss his results [facility] Medical History Vitamin D deficiency [place]'s esophagus with dysplasia Kyphoscoliosis Eosinophilia Pure hypercholesterolemia Benign essential hypertension GERD without esophagitis Surgical History History of esophagogastroduodenoscopy (EGD) H/O colonoscopy Hx of appendectomy (~1978) Family History Father Dementia Mother Heart disease Social History Housing: House Alcohol intake: current Alcohol intake frequency: does not drink Patient Tobacco Use Status: Never used Tobacco e-Cigarette/Vaping Use: Never Used Second Hand Smoke Exposure: Yes service: No Current occupational status: retired Cognitive needs: No Hearing needs: No Vision needs: Yes Questionnaire PHQ-9 Over the last 2 weeks, how often have you been bothered by any of the following problems? 1. Little interest or pleasure in doing things: not at all 2. Feeling down, depressed, or hopeless: not at all 3. Trouble falling or staying asleep, or sleeping too much: not at all 4. Feeling tired or having little energy: not at all 5. Poor appetite or overeating: not at all 6. Feeling bad about yourself - or that you are a failure or have let yourself or your family down: not at all 7. Trouble concentrating on things, such as reading the newspaper or watching television: not at all 8. Moving or speaking so slowly that other people could have noticed. Or the opposite - being so fidgety or restless that you have been moving around a lot more than usual: not at all 9. Thoughts that you would be better off or of hurting yourself in some way: not at all Total score: 0 Depression Screening Interpretation: Negative Depression Screening Done: Yes 74498 - PHQ-9 Billing: Yes Source: Developed by Drs. Domenico Martin, Kaylah Wiley, Jayce Centeno and colleagues, with an educational raul from [employer]. Thrive Questionnaire Date Thrive assessed: 08/25/23 I am a: Patient What is your living situation today?: I have a steady place to live Within the past 12 months, did the food you bought not last and you didn't have the money to get more?: Never true Within the past 12 months, did you worry whether your food would run out before you got money to buy more?: Never true Do you have trouble paying for medicines?: No Do you have trouble getting transportation to medical appointments?: No Do you have trouble paying your heating and electricity bill?: No Do you have trouble taking care of your child, family member or friend?: No Do you have trouble with day-to-day activities such as bathing, preparing meals, shopping, managing finances, etc.?: No Are you currently unemployed and looking for a job?: No Are you interested in more education?: No Currently or been in a relationship where the following occur: no concerns reported THRIVE Score: 0 AUDIT C Alcohol Use Questionnaire (AUDIT-C) 1. How often do you have a drink containing alcohol?: Never 3. How often do you have six or more drinks on one occasion?: Never Total Score: 0 Score Reviewed/Action Taken: Yes JOES-7 AMB Questionnaire JOSE-7 Date JOSE - 7 assessed: 08/25/23 Feeling nervous, anxious, or on edge: 3 = Nearly every day Not being able to stop or control worryin = More than half the days Worrying too much about different things: 2 = More than half the days Trouble relaxin = Several days Being so restless that it is hard to sit still: 1 = Several days Becoming easily annoyed or irritable: 1 = Several days Feeling afraid as if something awful might happen: 2 = More than half the days Total JOSE-7 score (0-4 normal; 5-9 mild; 10-14 moderate; 15-21 severe): 12 Source: Developed by Drs. Domenico Martin, Kaylah Wiley, Jayce Centeno and colleagues, with an educational raul from [employer]. Review of Systems Const Denies chills, Denies fatigue, Denies fever(s) and Denies headache(s) ENT Denies dysphagia, Reports dizziness (on and off), Denies otalgia, Denies headache(s), Denies neck pain, Denies odynophagia and Denies sore throat Card Denies chest pain, Denies palpitations and Denies dyspnea Resp Denies cough and Denies dyspnea GI Denies abdominal pain, Denies constipation, Denies dysphagia, Denies heartburn, Denies diarrhea, Denies nausea, Denies odynophagia and Denies vomiting Denies dysuria, Denies nocturia and Denies urinary frequency Musc Details: (+) right upper arm pain, especially proximally Reports arthralgias (right shoulder) and Denies neck pain Skin/Breast Reports rash Neuro Reports dizziness (on and off) and Denies headache(s) Psych Reports anxiety Endo Denies fatigue and Denies palpitations Physical exam (Primary Care) Vital Signs: Last Vital Signs Pulse 78 08/25/23 14:25 BP 120/76 08/25/23 15:18 Pulse Ox 97 08/25/23 14:25 Oxygen Delivery Method Room Air 08/25/23 14:25 BMI result Body Mass Index 22.0 Tobacco/Smoking Status: Tobacco use Status Tobacco use date assessed 08/25/23 08/25/23 14:31 Patient Tobacco Use Status Never used Tobacco 08/25/23 14:31 e-Cigarette/Vaping Use Never Used 08/25/23 14:31 PHQ-9: PHQ-9 Score PHQ-9: Total score 0 08/25/23 15:07 Depression Screening Interpretation: Negative Thrive Assessment: Date of Thrive Assessment Date Thrive assessed 08/25/23 08/25/23 14:31 Currently or been in a relationship where the following occur: no concerns reported Const General: no acute distress and alert HENMT Ears: TM's normal bilaterally and EAC's normal Throat: Yes posterior oropharynx normal and Yes tonsils normal (no TP congestion) Neck Neck: Yes no lymphadenopathy and Yes supple Thyroid: Thyroid normal Resp Auscultation: clear to auscultation bilaterally, no rales and no wheezes Cardio Rate: regular rate Rhythm: regular rhythm Heart sounds: no murmurs GI Palpation (GI): Soft to palpation and nontender Auscultation: normal bowel sounds General: Yes no CVA tenderness Back/Spine/Pelvis Back: no CVA tenderness Thoracic/Lumbar Spine: kyphosis Skin Rashes: no rashes Extrem General: Yes no clubbing, cyanosis or edema Right upper extremity: shoulder/upper arm Details: tenderness Location: of the A-C joint and of the proximal humerus; no swelling Results Reviewed Results Reviewed: Laboratory Tests 08/11/23 13:28 WBC 8.0 Hgb 13.8 L Hct 41.2 L Plt Count 351 Sodium 141 Potassium 4.1 Creatinine 0.89 Estimated GFR > 60 Fasting Glucose 98 AST 15 ALT 22 Alkaline Phosphatase 74 Triglycerides 63 Cholesterol 164 LDL Cholesterol, Calc 95 HDL Cholesterol 57 Assessment and Plan Assessment & Plan (1) Resistant hypertension: Code(s): I10 - Essential (primary) hypertension Plan: Reinforced low sodium diet - goal is systolic BP of at least 130 to 140 mm or less Has been on Lisinopril 40 mg QD and Amlodipine 10 mg QD but he continues to complain of recurrent dizziness, especially with changes in position Chest x-rays and echocardiogram done a few months ago both came back normal Renal doppler done a few months ago also revealed no significant findings - there is elevated proximal renal artery velocity of 214 cm/s but other parameters are normal. Findings are suspicious for mild stenosis at the origin. Normal left renal Doppler parameters suggestive of no renal artery stenosis. Elevated mid aortic velocity may be secondary to atherosclerosis and essential hypertension. He was also referred to cardiology for further evaluation and management and cardiology recommended ENT consultation for possible vertigo - he is now scheduled to be seen by ENT next month Carotid US done revealed no significant hemodynamic findings They have advised patient to try splitting up his BP meds and take his Lisinopril 40 mg in AM and Amlodipine in PM; have also suggested that he try cutting his Amlodipine down to 5 mg QD to see if it will help with his dizziness and if it does, then he is to stay on 5 mg QD - patient has not yet tried these He will also be sent for an exercise stress perfusion study for further evaluation - this is currently still pending scheduling (2) Dizziness of unknown cause: Code(s): R42 - Dizziness and giddiness Plan: Work ups done so far, including chest x-rays, echocardiogram, renal doppler and carotid US, all came back normal/negative Patient has been advised bb cardiology to consider see ENT for further evaluation of his dizziness - to r/o vertigo He will also be scheduled for an exercise perfusion study for further evaluation and has been advised to try splitting up his BP meds and take his Lisinopril 40 mg in AM and Amlodipine in PM; have also suggested that he try cutting his Amlodipine down to 5 mg QD to see if it will help with his dizziness and if it does, then he is to stay on 5 mg QD States that he is now scheduled to be seen by ENT next month on 09/20/2023 (3) Pure hypercholesterolemia: Code(s): E78.00 - Pure hypercholesterolemia, unspecified Plan: Results of his labs done a couple of weeks ago reviewed and discussed with patient Reinforced low cholesterol diet Continue Atorvastatin 20 mg QD and Fish Oil Capsules 1200 mg BID Will recheck his fasting lipids in 4 months for follow up (4) Washington's esophagus with dysplasia: Code(s): K22.719 - [place]'s esophagus with dysplasia, unspecified Plan: Seen on EGD last done on 02/11/2022 (was previously also done on 05/20/2018) - Bx still showed (+) Washington's esophagus with no dysplasia Will need repeat EGD again in 3 years (2024) for follow up Continue Omeprazole 20 mg BID Follow up with GI (Dr. Bailey) as scheduled (5) Kyphoscoliosis: Code(s): M41.9 - Scoliosis, unspecified Plan: Patient's kyphoscoliosis has been progressing over the past few years He has been advised that if this continues to get worse, it can significantly impact his overall lung volume and affect his breathing Chest x-rays in August 2021 revealed (+) thoracic kyphosis with degenerative changes in the spine. Otherwise, no significant abnormality is noted involving the heart, lungs, mediastinum, bony thorax or soft tissues Repeat chest x-rays in June 2022 also came out normal (6) Anemia: Code(s): D64.9 - Anemia, unspecified Qualifiers: Anemia type: unspecified type Qualified Code(s): D64.9 - Anemia, unspecified Plan: His anemia is mostly mild and his iron indices have been normal He does have eosinophilia at times, possibly due to allergies but with his heightened anxiety, he is requesting to have these issues checked out further - states that it is for his own peace of mind Hgb electrophoresis done back in April 2023 came out NORMAL (7) Vitamin D deficiency: Code(s): E55.9 - Vitamin D deficiency, unspecified Plan: Continue Vitamin D3 1000 units QD (8) Insomnia: Code(s): G47.00 - Insomnia, unspecified Qualifiers: Insomnia type: unspecified Qualified Code(s): G47.00 - Insomnia, unspecified Plan: Sleep hygiene reinforced He is advised that his recent trouble sleeping may actually be due to his anxiety, which appears to be increasing lately Continue Trazodone 75 mg Q HS (9) Anxiety: Code(s): F41.9 - Anxiety disorder, unspecified Plan: Advised again that his increased anxiety may be a contributor to his current high blood pressure readings as well as his trouble sleeping and even his recurrent dizziness Patient appears to be constantly worried and anxious about everything in general and even the slightest alteration to his daily routine tends to bother him a lot He was started on Sertaline 25 mg QD a couple of months ago but he stopped taking it after a couple of days because it made him feel slightly more tired than usual Have advised patient to go back on Sertraline 25 mg QD and that if mild fatigue is his only reaction to the medication, this may be temporary and should improve after a few days with continuation of the medication but he has not yet tried to go back on the Rx Patient states that he would like to think about this some more Plan Follow up in 4 months Orders: Orders Complete Blood Count Auto Diff 4 Months D64.9 - Anemia, unspecified UA CC w/rflx Micro + Cult 4 Months R30.0 - Dysuria Vitamin D 25-OH Total 4 Months E55.9 - Vitamin D deficiency, unspecified Comprehensive [place]. Panel Fast 4 Months E78.00 - Pure hypercholesterolemia, unspecified Lipid Panel 4 Months E78.00 - Pure hypercholesterolemia, unspecified TSH reflex Free T4 4 Months E78.00 - Pure hypercholesterolemia, unspecified Medications: New omeprazole 20 mg PO DAILY 90 caps 3RF 90 days Coding Level of Care Code Est Pt Level 4 (92084) Diagnoses Resistant hypertension I10 Dizziness of unknown cause R42 Pure hypercholesterolemia E78.00 [place]'s esophagus with dysplasia K22.719 Kyphoscoliosis M41.9 Anemia, unspecified type D64.9 Anemia type: unspecified type Vitamin D deficiency E55.9 Insomnia, unspecified type G47.00 Insomnia type: unspecified Anxiety F41.9
[2023-08-25 14:25] VITALS: BP 110/64; PULSE 78; O2SAT 97; BMI 22.0
[2023-08-25 15:18] VITALS: BP 120/76
== END 2023-08-25 15:28 | disposition home or self-care (01) ==
PROVIDERS: PCP Internal Medicine; Visit Provider Internal Medicine
DX: I10 Essential (primary) hypertension (principal); R42 Dizziness and giddiness; E78.00 Pure hypercholesterolemia, unspecified; K22.719 Barrett's esophagus with dysplasia, unspecified; M41.9 Scoliosis, unspecified; D64.9 Anemia, unspecified; E55.9 Vitamin D deficiency, unspecified; G47.00 Insomnia, unspecified; F41.9 Anxiety disorder, unspecified
CPT/HCPCS: 99214

== ENCOUNTER 2023-11-26 09:30 | Outpatient (REF) | payer MEDICARE, SELFPAY ==
--- NOTE | ~2023-11-26 | MR_ITS ---
EXAMINATION: MR angio head wo con, MR angio neck wo/w con CLINICAL INFORMATION: SNHL, DIZZINESS GIDDINESS R/O ANEURYSM COMPARISON: Carotid ultrasound 12/16/2022. TECHNIQUE: Unenhanced 3-D [id number] MR angiography of the head with multiple 3-D angiographic reformatted images processed on the technologist workstation under concurrent supervision; unenhanced and IV contrast enhanced MR angiography of the neck with multiple 3-D reformatted images processed on the technologist workstation under concurrent supervision. Stenoses are made with reference to the NASCET criteria unless otherwise specified. Intravenous contrast: Gadavist 10 mL. FINDINGS: MR angiography brain: Within the incidentally visualized portions of the brain, mild diffuse commensurate prominence of ventricles and sulci is visualized. No gross intracranial tumors or gross abnormal extra-axial fluid collections identified. Of note, only portions of the brain or visualized and visualized brain is identified on the angiographic images which is not tailored for optimal visualization of the brain. Partial visualization is made of apparent colonic thickening and/or retained secretions within bilateral anterior and posterior ethmoid air cells. Partial visualization is made of mild mucosal thickening within the maxillary sinuses and mucosal thickening and/or retained secretions within the frontal sinuses, most predominantly within the left frontal sinus. No gross mastoid effusions identified. The vertebral arteries are codominant. No intracranial stenoses, occlusions or aneurysms are visualized. The A1 segment of the left anterior cerebral artery is hypoplastic. An anterior communicating artery is visualized. MR angiography neck: Conventional branching anatomy of the great vessels in relation to the transverse aorta is noted. The vertebral arteries are codominant. The carotid bulbs are normal in appearance without evidence of stenosis or contour irregularity. The visualized transverse aorta is normal in caliber. MR/MR angio head wo con IMPRESSION: MR angiography brain: *Normal MR angiography of the head. No intracranial stenoses, occlusions or aneurysms identified. *Mucosal thickening and retained secretions noted within the left and right ethmoid air cells, frontal sinuses and maxillary sinuses as noted above. Findings could correlate with chronic sinusitis. MR angiography neck: *Normal. Normal appearance of the visualized cervical carotid and vertebral artery systems. Of note, the minimal bilateral proximal internal carotid artery stenoses noted on the comparison carotid ultrasound of 12/16/2022 may reside below the spatial resolution of the current examination.
--- NOTE | ~2023-11-26 | MR_ITS ---
EXAMINATION: MR angio head wo con, MR angio neck wo/w con CLINICAL INFORMATION: SNHL, DIZZINESS GIDDINESS R/O ANEURYSM COMPARISON: Carotid ultrasound 12/16/2022. TECHNIQUE: Unenhanced 3-D [id number] MR angiography of the head with multiple 3-D angiographic reformatted images processed on the technologist workstation under concurrent supervision; unenhanced and IV contrast enhanced MR angiography of the neck with multiple 3-D reformatted images processed on the technologist workstation under concurrent supervision. Stenoses are made with reference to the NASCET criteria unless otherwise specified. Intravenous contrast: Gadavist 10 mL. FINDINGS: MR angiography brain: Within the incidentally visualized portions of the brain, mild diffuse commensurate prominence of ventricles and sulci is visualized. No gross intracranial tumors or gross abnormal extra-axial fluid collections identified. Of note, only portions of the brain or visualized and visualized brain is identified on the angiographic images which is not tailored for optimal visualization of the brain. Partial visualization is made of apparent colonic thickening and/or retained secretions within bilateral anterior and posterior ethmoid air cells. Partial visualization is made of mild mucosal thickening within the maxillary sinuses and mucosal thickening and/or retained secretions within the frontal sinuses, most predominantly within the left frontal sinus. No gross mastoid effusions identified. The vertebral arteries are codominant. No intracranial stenoses, occlusions or aneurysms are visualized. The A1 segment of the left anterior cerebral artery is hypoplastic. An anterior communicating artery is visualized. MR angiography neck: Conventional branching anatomy of the great vessels in relation to the transverse aorta is noted. The vertebral arteries are codominant. The carotid bulbs are normal in appearance without evidence of stenosis or contour irregularity. The visualized transverse aorta is normal in caliber. MR/MR angio neck wo/w con IMPRESSION: MR angiography brain: *Normal MR angiography of the head. No intracranial stenoses, occlusions or aneurysms identified. *Mucosal thickening and retained secretions noted within the left and right ethmoid air cells, frontal sinuses and maxillary sinuses as noted above. Findings could correlate with chronic sinusitis. MR angiography neck: *Normal. Normal appearance of the visualized cervical carotid and vertebral artery systems. Of note, the minimal bilateral proximal internal carotid artery stenoses noted on the comparison carotid ultrasound of 12/16/2022 may reside below the spatial resolution of the current examination.
[2023-11-26] MEDS: gadobutroL 10 ML VIAL IVPUSH (10:39)
== END 2023-11-26 09:31 | disposition home or self-care (01) ==
LOC: HO.MRI 09:30
PROVIDERS: PCP Internal Medicine; Visit Provider Otolaryngology
DX: H90.3 Sensorineural hearing loss, bilateral (principal); R42 Dizziness and giddiness
CPT/HCPCS: 70544; 70549; A9585

== ENCOUNTER 2023-12-29 12:08 | Outpatient (REF) | payer MEDICARE, SELFPAY ==
[2023-12-29 13:22] LABS: MANUAL DIFF FLAG NO
[2023-12-29 13:26] LABS: Appearance Urine Clear; Color Urine Yellow; Glucose Urine UA Negative (Negative); Leukocyte Esterase Urine Negative (Negative); Nitrite Urine Negative (Negative); Urine Blood Negative (Negative); Urine Ketones Negative (Negative); Urine Protein Negative (Neg-Trace)
[2023-12-29 13:33] LABS: Basophils Absolute Auto 0.1 X10*3/uL (0.0-0.2); Basophils Percent Auto 0.8 % (0-2); Eosinophils Absolute Auto 0.6 X10*3/uL (0.0-0.4); Eosinophils Percent Auto 7.3 % (0-4); Hematocrit 39.4 % (42.0-52.0); Imm Gran Abs Auto 0.02 X10*3/uL (0.00-0.03); Imm Gran Pct Auto 0.3 % (0.0-0.4); Lymphocytes Absolute Auto 1.6 X10*3/uL (1.2-4.9); Lymphocytes Percent Auto 20.4 % (20-40); Mean Corpuscular Hemoglobin 29.8 pg (27.0-33.0); Mean Corpuscular Volume 90.4 fL (80.0-98.0); Mean Platelet Volume 9.7 fL (9.4-12.4); Monocytes Absolute Auto 0.6 X10*3/uL (0.1-1.2); Monocytes Percent Auto 7.6 % (2-11); Neutrophils Percent Auto 63.6 % (45-73); Platelet Count 332 X10*3/uL (160-400); Red Blood Count 4.36 X10*6/uL (4.60-5.80); Red Cell Distribution Width 13.3 % (11.0-16.0); White Blood Count 7.9 X10*3/uL (4.8-10.8)
[2023-12-29 14:17] LABS: Alanine Aminotransferase 21 U/L (0-40); Alkaline Phosphatase 71 U/L (39-117); Anion Gap 13 (12-20); Aspartate Amino Transferase 15 U/L (5-37); Bilirubin Total 0.4 mg/dL (0.0-1.0); Blood Urea Nitrogen 21 mg/dL (9-16); Calcium 9.3 mg/dL (8.4-10.2); Carbon Dioxide 24 mmol/L (22-29); Chloride 108 mmol/L (96-108); Cholesterol 164 mg/dL (<200); Estimated Glomerular Filt Rate > 60; Glucose Fasting 104 mg/dL (60-99); HDL Cholesterol 56 mg/dL (>40); LDL Cholesterol Calculated 98 mg/dL (<100); Potassium 4.1 mmol/L (3.3-5.1); Sodium 141 mmol/L (135-145); Total Protein 6.9 g/dL (6.5-8.0); Triglycerides 52 mg/dL (<150)
[2023-12-29 14:20] LABS: TSH reflex Free T4 1.68 uIU/mL (0.32-4.0); Vitamin D 25-OH Total 74.2 ng/mL (>30)
== END 2023-12-29 12:09 | disposition home or self-care (01) ==
LOC: HO.HMGCLDS 12:08
PROVIDERS: PCP Internal Medicine; Visit Provider Internal Medicine
DX: E78.00 Pure hypercholesterolemia, unspecified (principal); D64.9 Anemia, unspecified; R30.0 Dysuria; E55.9 Vitamin D deficiency, unspecified
CPT/HCPCS: 36415; 80053; 80061; 81003; 82306; 84443; 85025

== ENCOUNTER 2024-01-12 12:35 | Outpatient (AMB) | payer MEDICARE, SELFPAY ==
--- NOTE | 2024-01-12 12:41 | A.OFFPC_ITS ---
Vital Signs 01/12/24 12:43 Height 5 ft 10 in Weight 152 lb 8 oz BMI 21.9 BP 124/70 Blood Pressure Location Lt brachial Position Sitting Pulse 88 Pulse Source Pulse Oximeter Pulse Oximetry (%) 99 Oxygen Delivery Method Room Air Intake Visit Reasons: [facility] f/u Interface Control Officer Required: No Accompanied by: Self / Same As Patient Allergies No Known Allergies Allergy (Verified 01/12/24 12:59) Medication List - Last Reconciled 01/12/24 by Jones Payne MD amlodipine 10 mg PO DAILY 90 days aspirin 81 mg PO DAILY lisinopril 40 mg PO DAILY 90 days multivitamin 1 tab PO DAILY omega 2-pyy-nao-fish oil 1,200 (144-216) mg (Fish Oil) 1 cap PO DAILY omeprazole 20 mg PO DAILY 90 days rosuvastatin 5 mg PO DAILY 90 days trazodone 75 mg (1.5 x 50 mg) PO BEDTIME PRN 90 days Tobacco use date assessed: 01/12/24 Fall risk assessment: No Falls in past year Last assessed Fall Risk: 01/12/24 Dental Screening Dental Screen Date: 01/12/24 Did you have a dental visit in the last 12 months?: Yes Did you have a dental problem in the last 6 months where you did not have access to dental care?: No Was dental information given to patient?: Patient has dentist HPI [facility] f/u HPI Details Patient comes in today for his follow up visit States that he still has recurrent dizziness and would like to know exactly what Dr. Rodriguez has found on all of the tests that he had done so far He denies any headaches Denies any chest pains, no SOB No nausea/vomiting, no abdominal pain No change in bowel habits noted Still has on and off right shoulder pain but states that the pain has been more manageable lately MRI done on his shoulder a few months ago revealed (+) rotator cuff tear and OA changes He had his follow up labs done a couple of weeks ago - to discuss his results [facility] Medical History Vitamin D deficiency Washington's esophagus with dysplasia Kyphoscoliosis Eosinophilia Pure hypercholesterolemia Benign essential hypertension GERD without esophagitis Surgical History History of esophagogastroduodenoscopy (EGD) H/O colonoscopy Hx of appendectomy (~1978) Family History Father Dementia Mother Heart disease Social History Housing: House Alcohol intake: current Alcohol intake frequency: does not drink Patient Tobacco Use Status: Never used Tobacco e-Cigarette/Vaping Use: Never Used Second Hand Smoke Exposure: Yes service: No Current occupational status: retired Cognitive needs: No Hearing needs: No Vision needs: Yes Questionnaire PHQ-9 Over the last 2 weeks, how often have you been bothered by any of the following problems? 1. Little interest or pleasure in doing things: not at all 2. Feeling down, depressed, or hopeless: not at all 3. Trouble falling or staying asleep, or sleeping too much: not at all 4. Feeling tired or having little energy: not at all 5. Poor appetite or overeating: not at all 6. Feeling bad about yourself - or that you are a failure or have let yourself or your family down: not at all 7. Trouble concentrating on things, such as reading the newspaper or watching television: not at all 8. Moving or speaking so slowly that other people could have noticed. Or the opposite - being so fidgety or restless that you have been moving around a lot more than usual: not at all 9. Thoughts that you would be better off or of hurting yourself in some way: not at all Total score: 0 Depression Screening Interpretation: Negative Depression Screening Done: Yes [id number] - PHQ-9 Billing: Yes Source: Developed by Drs. Domenico Martin, Kaylah Wiley, Jayce Centeno and colleagues, with an educational raul from [employer]. Thrive Questionnaire Date Thrive assessed: 01/12/24 I am a: Patient What is your living situation today?: I have a steady place to live Within the past 12 months, did the food you bought not last and you didn't have the money to get more?: Never true Within the past 12 months, did you worry whether your food would run out before you got money to buy more?: Never true Do you have trouble paying for medicines?: No Do you have trouble getting transportation to medical appointments?: No Do you have trouble paying your heating and electricity bill?: No Do you have trouble taking care of your child, family member or friend?: No Do you have trouble with day-to-day activities such as bathing, preparing meals, shopping, managing finances, etc.?: No Are you currently unemployed and looking for a job?: No Are you interested in more education?: No Please select the resources that you would like help with: None Currently or been in a relationship where the following occur: No concerns reported THRIVE Score: 0 AUDIT C Alcohol Use Questionnaire (AUDIT-C) 1. How often do you have a drink containing alcohol?: Never 3. How often do you have six or more drinks on one occasion?: Never Total Score: 0 Score Reviewed/Action Taken: Yes JOSE-7 AMB Questionnaire JOSE-7 Date JOSE - 7 assessed: 01/12/24 Feeling nervous, anxious, or on edge: 3 = Nearly every day Not being able to stop or control worryin = More than half the days Worrying too much about different things: 2 = More than half the days Trouble relaxin = Several days Being so restless that it is hard to sit still: 1 = Several days Becoming easily annoyed or irritable: 1 = Several days Feeling afraid as if something awful might happen: 2 = More than half the days Total JOSE-7 score (0-4 normal; 5-9 mild; 10-14 moderate; 15-21 severe): 12 Source: Developed by Drs. Domenico Martin, Kaylah Wiley, Jayce Centeno and colleagues, with an educational raul from [employer]. Review of Systems Const Denies chills, Denies fatigue, Denies fever(s) and Denies headache(s) ENT Denies dysphagia, Reports dizziness (on and off), Denies otalgia, Denies headache(s), Denies neck pain, Denies odynophagia, Denies tinnitus and Denies sore throat Card Denies chest pain, Denies palpitations and Denies dyspnea Resp Denies cough and Denies dyspnea GI Denies abdominal pain, Denies constipation, Denies dysphagia, Denies heartburn, Denies diarrhea, Denies nausea, Denies odynophagia and Denies vomiting Denies dysuria, Denies nocturia and Denies urinary frequency Musc Reports arthralgias (right shoulder, on and off) and Denies neck pain Skin/Breast Denies rash Neuro Reports dizziness (on and off) and Denies headache(s) Psych Reports anxiety Endo Denies fatigue and Denies palpitations Physical exam (Primary Care) Vital Signs: Last Vital Signs Pulse 88 01/12/24 12:43 BP 124/70 01/12/24 12:43 Pulse Ox 99 01/12/24 12:43 Oxygen Delivery Method Room Air 01/12/24 12:43 BMI result Body Mass Index 21.9 Tobacco/Smoking Status: Tobacco use Status Tobacco use date assessed 01/12/24 01/12/24 12:47 Patient Tobacco Use Status Never used Tobacco 01/12/24 12:42 e-Cigarette/Vaping Use Never Used 01/12/24 12:42 PHQ-9: PHQ-9 Score PHQ-9: Total score 0 01/12/24 13:21 Depression Screening Interpretation: Negative Thrive Assessment: Date of Thrive Assessment Date Thrive assessed 01/12/24 01/12/24 12:47 Currently or been in a relationship where the following occur: No concerns reported Const General: no acute distress and alert HENMT Ears: TM's normal bilaterally and EAC's normal Throat: Yes posterior oropharynx normal and Yes tonsils normal (no TP congestion) Neck Neck: Yes no lymphadenopathy and Yes supple Thyroid: Thyroid normal Resp Auscultation: clear to auscultation bilaterally, no rales and no wheezes Cardio Rate: regular rate Rhythm: regular rhythm Heart sounds: no murmurs GI Palpation (GI): Soft to palpation and nontender Auscultation: normal bowel sounds General: Yes no CVA tenderness Back/Spine/Pelvis Back: no CVA tenderness Thoracic/Lumbar Spine: kyphosis Skin Rashes: no rashes Extrem General: Yes no clubbing, cyanosis or edema Right upper extremity: shoulder/upper arm Details: tenderness Location: of the A-C joint; no swelling Results Reviewed Results Reviewed: Laboratory Tests 12/29/23 12:12 WBC 7.9 Hgb 13.0 L Hct 39.4 L Plt Count 332 Sodium 141 Potassium 4.1 Creatinine 0.93 Estimated GFR > 60 Fasting Glucose 104 H Calcium 9.3 AST 15 ALT 21 Triglycerides 52 Cholesterol 164 LDL Cholesterol, Calc 98 HDL Cholesterol 56 25-OH Vitamin D Total 74.2 TSH 1.68 Ur Specific [place] 1.020 Urine Protein Negative Urine Glucose (UA) Negative Urine Blood Negative Urine Nitrite Negative Ur Leukocyte Esterase Negative Assessment and Plan Assessment & Plan (1) Benign essential hypertension: Code(s): I10 - Essential (primary) hypertension Plan: Reinforced low sodium diet - goal is systolic BP of at least 130 to 140 mm or less Has been on Lisinopril 40 mg QD and Amlodipine 10 mg QD Patient is reminded to continue monitoring his blood pressure regularly Renal doppler done last year (2022) revealed no significant findings - there is elevated proximal renal artery velocity of 214 cm/s but other parameters are normal. Findings are suspicious for mild stenosis at the origin. Normal left renal Doppler parameters suggestive of no renal artery stenosis. Elevated mid aortic velocity may be secondary to atherosclerosis and essential hypertension Chest x-rays and echocardiogram done last year also both came back normal (2) Dizziness of unknown cause: Code(s): R42 - Dizziness and giddiness Plan: Work ups done so far, including chest x-rays, echocardiogram, renal doppler and carotid US, all came back normal/negative Myocardial perfusion study done in January 2023 also came out normal - (+) normal myocardial perfusion; Gated LVEF is 70%. Transient ischemic dilatation is not present He has even tried splitting up his BP meds at our recommendation to see it this will help alleviate his recurrent dizziness but to no avail He was eventually referred to and seen by ENT (Dr. 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 and no other work ups are indicated or pertinent at this time Have also discussed with him that other than physical therapy, there is really not much else we can suggest in terms of intervention Fall precautions reinforced (3) Pure hypercholesterolemia: Code(s): E78.00 - Pure hypercholesterolemia, unspecified Plan: Results of his labs done a couple of weeks ago reviewed and discussed with patient Reinforced low cholesterol diet Continue Atorvastatin 20 mg QD and Fish Oil Capsules 1200 mg BID Will recheck his fasting lipids and labs in about 6 months for follow up (4) Felix's esophagus with dysplasia: Code(s): K22.719 - Washington's esophagus with dysplasia, unspecified Plan: Seen on EGD last done on 02/11/2022 (was previously also done on 05/20/2018) - Bx still showed (+) Washington's esophagus with no dysplasia Will need repeat EGD again in 3 years (2024) for follow up Continue Omeprazole 20 mg BID Follow up with GI (Dr. Bailey) as scheduled (5) Kyphoscoliosis: Code(s): M41.9 - Scoliosis, unspecified Plan: Patient's kyphoscoliosis has been progressing over the past few years He has been advised that if this continues to get worse, it can significantly impact his overall lung volume and affect his breathing Chest x-rays in August 2021 revealed (+) thoracic kyphosis with degenerative changes in the spine. Otherwise, no significant abnormality is noted involving the heart, lungs, mediastinum, bony thorax or soft tissues Repeat chest x-rays in June 2022 also came out normal Discussed that we are not exactly sure why his kyphoscoliosis has been progressing lately but he does NOT appear to have any of the more common causes of kyphoscoliosis, including neurofibromatosis, ankylosing spondylitis, Pott's disease, paralytic poliomyelitis, Marfan syndrome and the mucopolysaccharidoses As he did not seem to have had this when he was younger, this technically rules out heredity as a cause and his problem may be more of an acquired condition due to years of poor posture (postural kyphosis) and the only recommendation we can give him at this time is to try to make a more conscious effort to sit or stand up straight as much as he can all the time (6) Anemia: Code(s): D64.9 - Anemia, unspecified Qualifiers: Anemia type: unspecified type Qualified Code(s): D64.9 - Anemia, unspecified Plan: His anemia is mostly mild and his iron indices have been normal He has eosinophilia at times, possibly due to allergies, but with his anxiety disorder, he requested to have this checked out further and states that it is for his own peace of mind We sent him for Hgb electrophoresis back in April 2023, which came out NORMAL (7) Vitamin D deficiency: Code(s): E55.9 - Vitamin D deficiency, unspecified Plan: Continue Vitamin D3 1000 units QD (8) Insomnia: Code(s): G47.00 - Insomnia, unspecified Qualifiers: Insomnia type: unspecified Qualified Code(s): G47.00 - Insomnia, unspecified Plan: Sleep hygiene reinforced He is advised that his recent trouble sleeping may actually be due to his anxiety, which appears to be increasing over the past year or so Continue Trazodone 75 mg Q HS PRN (9) Anxiety: Code(s): F41.9 - Anxiety disorder, unspecified Plan: Advised again that his increased anxiety may be a contributor to his recurrent high blood pressure readings as well as his trouble sleeping Patient appears to be constantly worried and anxious about everything in general and even the slightest alteration to his daily routine tends to bother him a lot He was started on Sertaline 25 mg QD a couple of months ago but he stopped taking it after a couple of days because it made him feel slightly more tired than usual Have advised patient to go back on Sertraline 25 mg QD and that if mild fatigue is his only reaction to the medication, this may be temporary and should improve after a few days with continuation of the medication but he has not yet tried to go back on the Rx Patient states that he would like to think about this some more before going back on the Rx but ultimately decided that he does not want to take any more medicines than what he is on right now Plan To return in early August 2024 for his annual physical examination Orders: Orders Complete Blood Count Auto Diff 07/29/24 D64.9 - Anemia, unspecified, Z00.00 - Encounter for general adult medical examination without abnormal findings Lipid Panel 07/29/24 E78.00 - Pure hypercholesterolemia, unspecified, Z00.00 - Encounter for general adult medical examination without abnormal findings Vitamin D 25-OH Total 07/29/24 E55.9 - Vitamin D deficiency, unspecified, Z00.00 - Encounter for general adult medical examination without abnormal findings Vitamin B12 and Folate 07/29/24 E53.8 - Deficiency of other specified B group vitamins, Z00.00 - Encounter for general adult medical examination without abnormal findings Comprehensive [place]. Panel Fast 07/29/24 E78.00 - Pure hypercholesterolemia, unspecified, Z00.00 - Encounter for general adult medical examination without abnormal findings TSH reflex Free T4 07/29/24 E78.00 - Pure hypercholesterolemia, unspecified, Z00.00 - Encounter for general adult medical examination without abnormal findings UA CC w/rflx Micro + Cult 07/29/24 R30.0 - Dysuria, Z00.00 - Encounter for general adult medical examination without abnormal findings Coding Level of Care Code Est Pt Level 4 (49353) Complex EM visit Add On G2211 Diagnoses Benign essential hypertension I10 Dizziness of unknown cause R42 Pure hypercholesterolemia E78.00 Washington's esophagus with dysplasia K22.719 Kyphoscoliosis M41.9 Anemia, unspecified type D64.9 Anemia type: unspecified type Vitamin D deficiency E55.9 Insomnia, unspecified type G47.00 Insomnia type: unspecified Anxiety F41.9
[2024-01-12 12:43] VITALS: BP 124/70; PULSE 88; O2SAT 99; BMI 21.9
== END 2024-01-12 13:22 | disposition home or self-care (01) ==
PROVIDERS: PCP Internal Medicine; Visit Provider Internal Medicine
DX: I10 Essential (primary) hypertension (principal); R42 Dizziness and giddiness; E78.00 Pure hypercholesterolemia, unspecified; K22.719 Barrett's esophagus with dysplasia, unspecified; M41.9 Scoliosis, unspecified; D64.9 Anemia, unspecified; E55.9 Vitamin D deficiency, unspecified; G47.00 Insomnia, unspecified; F41.9 Anxiety disorder, unspecified
CPT/HCPCS: 99214; G2211

== ENCOUNTER 2024-08-11 12:13 | Outpatient (REF) | payer MEDICARE, SELFPAY ==
--- OUTSIDE RECORDS SUMMARY | 2024-08-11 12:59 | XMS_ITS | Patient Health Record ---
Author Organization [facility] Address [address] [place] [id number] Care Team Providers Care Jewelry Department Supervisor Name Role Phone Elmer NAVA, Jones Primary Care Provider Eduard Adkins Jr Unavailable Allergies No Known Allergies Reason For Referral No Information Medications Medication SIG (Take, Route, Frequency, Duration) Notes Start Date End Date Status Lisinopril 40 MG 1 tablet Orally Once a day Active Aspir-81 81 MG 1 tablet Orally Once a day Active Multi Vitamin/Minerals 1 1 Orally QD Active Omeprazole 20 MG 1 capsule Orally Onc e in morning once at night Active Fish Oil Maximum Strength 1200 MG 2 capsule Orally Once a day Active Atorvastatin Calcium 20 MG 1 tablet Oral ly Once a day Active Immunizations Vaccine Route Administration Date Status Comme nts Influenza Unknown 03/25/2021 Administered Social History Tobacco Use: Social History Observation Description Date Details (start date - stop date) Never Smoker NA - NA Tobacco Use/Smoking Question Answer Notes Patient is a nonsmoker Alcohol Screen Question Answer Notes Did you have a drink containing alcohol in the p ast year? 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) Active confirmed Problem 521142144 Gastroesophageal reflux disease without esophagitis (K21.9) Active confirmed Problem Benign neoplasm of stomach (49230191) Gastric polyps (K31.7) Active confirmed Problem [place] esophagus (955642686) [place] esophagus (K22.70) Active confirmed Problem Gregki (46252596) Schatzki's ring (K22.2) Active confirmed Plan Of Treatment Future Test Test Name Order Date COLONOSCOPY 10/28/2016 UPPER GI ENDOSCOPY 02/03/2018 UPPER GI ENDOSCOPY 01/01/2022 Insurance Providers Payer Name Payer Address Payer Phone Subscriber Number Group Number Insured Name Patient Relationship to Insured Coverage Start Date Coverage End Date [employer] [address] [place] [phone] [id number] DRAKE RODRIGUEZ Self - patient is the insured Medical (General) History Medical History History ICD Code elevated cholesterol gastroesophageal reflux dise ase, EGD 05/21, focal intestinal metaplasia, repeat EGD 2 years hypertension Colonoscopy 02/19/17, normal, ten-year f ollowup Retinal vein branch occlusion left eye Surgical History Surgery Date(Month/Year) appendectomy partial colectomy after complicated appe ndicitis
--- OUTSIDE RECORDS SUMMARY | 2024-08-11 12:59 | XMS_ITS ---
[facility] Organization [facility] [place] Address [address] [place] [address] Care Team Providers Care Windows Architect Name Role Phone Elmer NAVA, [place] Primary Care Provider Niels Wallis Unavailable [phone] Allergies No Known Allergies REASON FOR VISIT At Risk Footcare, Painful Nail(s) aggrevated by shoes and causing difficulty standing/walking., Skin problem(s) Medications Medication SIG (Take, Route, Frequency, Duration) Notes Start Date End Date Status Atorvastatin Calcium 20 MG 1 tablet Orally Once a day for 30 day(s) Not-Taking Ammonium Lactate 12 % 1 application Externally Twice a day for 30 days Active Multivitamin Not-Bill ing Vitamin D Active traZODone HCl 50 MG 1 tablet at bedtime as needed Orally Once a day Active Omeprazole 20 MG 1 capsule 30 minutes before morning meal Orally Once a day Active [place] 3 Active Lisinopril 40 MG 1 tablet Orally Once a day for 30 day(s) Active Aspir-81 Active Rosuvastatin Calcium 5 MG 1 tablet Orall y Once a day Active amLODIPine Besylate 10 MG 1 tablet Orall y Once a day for 30 day(s) Active Social History Tobacco Use: Social History Observation Description Date Details (start date - stop date) Never Smoker NA - NA Tobacco Use/Smoking Question Answer Notes Are you a: nonsmoker Additional Findings: Tobacco Non-User Current no n-smoker Alcohol Screen Question Answer Notes Did you have a drink containing alcohol in the p ast year? No Points 0 Interpretation Negative Tobacco use other than smoking: Question Answer Notes Are you an other tobacco user? No Vital Signs Height 5ft 10in in 10/27/2023 Weight 150 lbs 10/27/2023 BMI 21.52 kg/m2 10/27/2023 Procedures Procedure Date Ordered Date Performed Result Body Sit e 19037-QFUIGXI NAIL, 6 OR MORE 10/27/2023 N/A 13079-ZNHC SKIN LESIONS, OVER 4 10/27/2023 N/A Encounters Encounter Location Date Provider Diagnosis [facility] [address] [place] [id number] 10/27/2023 Niels James Atherosclerosis of [place] artery of both lower extremities, with unspecified presence of clinical manifestation I70.203 ; Tinea unguium B35.1 ; Pain in right toe(s) M79.674 ; Pain in left toe(s) M79.675 and Xerosis of skin L85.3 Assessments Encounter Date Diagnosis (ICD Code) Assessment Notes Treatment Notes Treatment Clinical Notes Section Notes 10/27/2023 Atherosclerosis of [place] artery of both lower extremities, with unspecified presence of clinical manifestation (ICD-10 - I70.203) 10/27/2023 Tinea unguium (ICD-10 - B35.1) 10/27/2023 Pain in right toe(s) (ICD-10 - M79.674) 10/27/2023 Pain in left toe(s) (ICD-10 - M79.675) 10/27/2023 Xerosis of skin (ICD-10 - L85.3) Plan Of Treatment Medication Medication Name Sig Start Date Stop Date Notes Ammonium Lactate 12 % 1 application Exte rnally Twice a day for 30 days Pending Test Test Name Order Date [id number] NAIL, 6 OR MORE 10/27/2023 32219-IJME SKIN LESIONS, OVER 4 10/27/19 24 Next Appt Details Follow Up: prn, Reason: Provider Name:Niels Sayra James , 10/04/2024 11:30:00 AM, [address] [facility], [place] [address], [place], [id number], Procedure Notes * Category Sub-Category Detail Notes Debride Nail 6-10 Nail debridement Nail debridem ent performed extensively to reduce/remove overall nail length, girth, thickness, subungual debris, and necrotic tissue, by manual and electrical means through the use of a nail nipper and/or dremel, to more viable healthy nail plate or bed tissue 1-5. Silver nitrate used for any petechial bleeding as necessary. Patient chooses, no pharmaceutical tx (23393) Keratoma Treatment Parring or Cutting o f Benign Hyperkeratotic Lesion(s) 91931 ( More than 4 Lesions ) - The Benign hyperkeratotic lesions, as described above were pared, and/or cut utilizing a sterile 15 blade, tissue nippers, and/or dremel , Q8 Progress Notes * ÓSCARSANJIV Ender SierraDOB:1950 (73 yo M)Acc No.[id number]:10/27/2023 Progress Note Patient:?Yan RODRIGUEZn Mariela Provider:?Niels James DPM :1950???Age:73 Y???Sex:Male Chris e:10/27/2023 Address:[address] [place], [place] [phone] Pcp:Jones Payne MD Subjective: * Chief Complaints: * ???At Risk FootcarePainful N ail(s) aggrevated by shoes and causing difficulty standing/walking.Skin problem(s) * HPI: ???At Risk footcare:?Pt States Last PCP Visit:?Date?08/10/2023 ???Skin problems:?Nature:?dryness , scaling.?Location:?B/L .?Duration:?several days.?Course:?worse.? * ROS:?General/Constitutional:?Nausea?denies.?Vomiting?denies.?Hunger Thirst?denies.?Loss appetite?denies.?Chills?denies.?Fatigue?admits.?Fever?denies.?Night Sweats?denies.?Unexplained weight loss?denies.?Unexplained weight gain?denies.?HEENTM:?Dentures?denies.?Dizziness?admits.?Glasses/contacts?admits.?Retinopathy?de nies.?Blurred/double vision?denies.?TMJ?denies.?Discharge/drainage?denies.?Implants?denies.?Sore throat?denies.?Dental implants?denies.?Hard of hearing ?denies.?Difficulty chewing/swallowing/speaking?denies.?Nose bleeds?denies.?Sore mouth?denies.?Respiratory:?On Oxygen?denies.?Pneumonia/pleurisy?denies.?Bronchitis?denies.?Emphysema?denies.?C oughing?denies.?Cough blood?denies.?Shortness of breath?admits.?Wheezing?denies.?Cardiovascular:?Pacemaker?denies.?MVP?denies.?WPW?denies.?CHF?denies.?Heart attack?denies.?Septal defect?denies.?Rapid beat?denies.?Chest pain ?denies.?Atrial Fib.?denies.?Murmur/Palpitations?denies.?Gastrointestinal:?Hemorrhoids?admits.?Stomach/Abdominal pain?denies.?Dark blood stool?denies.?Irritable bowel ?denies.?Constipation?denies.?Diarrhea?denies.?Hematology:?Swelling?denies.?Clots?denies.?Varicose Veins?admits.?Bruising?denies.?Bleeding problem?denies.?Genitourinary:?Blood urine?denies.?Frequent/Painfu/urination/bladder control?admits.?Kidney stones?denies.?Infection (UTI)?denies.?Nephropathy?denies.?sex trans dis (STD)?denies.?Prostate?denies.?Musculoskeletal:?Hammertoes?admits.?Bunions?denies.?Back Pain?admits.?Muscle Cramps/ Resting?denies.?Muscle cramps / walking?denies.?Generalized aches and pains?denies.?Weakness?denies.?Integ.:?Garduno?denies.?Scars?denies.?Corns/calluses?admits.?Ingrown nails?admits.?Painful nails?admits.?Open Sores?denies.?Rashes?denies.?Neurologic:?Difficulty sleeping?admits.?Brain disorder?denies.?Numbness?denies.?Balance trouble?denies.?Confusion?denies.?Fainting/blackouts?denies.?Tingling?denies.?Tr emors?denies.? * Medical History:? * Surgical History:?colonoscop y appendectomy 1979EGD * Hospitalization/Major Diagno stic Procedure:?No Hospitalization History. * Family History:?Mother: dece ased, foot problems, diagnosed with Family history of arthritis, Unspecified essential hypertension, Unspecified heart disease.?Father: , dementia.? * Social History:?Tobacco Use:?Tobacco Use/Smoking?Are you a:?nonsmoker ?Additional Findings: Tobacco Non-User?Current non-smoker ?Tobacco use other than smoking?Are you an other tobacco user??No ???Drugs/Alcohol:?Drugs?Have you used drugs other than those for medical reasons in the past 12 months??No ?Alcohol Screen?Did you have a drink containing alcohol in the past year??No ?Points?0 ?Interpretation?Negative ???Miscellaneous:?Caffeine: yes, 1-2 cups per day. ?Exercise: refused to report. ?Marital status: single. 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 * Medications:?TakingamLODIPin e Besylate 10 MG Tablet 1 tablet Orally Once a day Aspir-81 Lisinopril 40 MG Tablet 1 tablet Orally Once a day [place] 3 Omeprazole 20 MG Capsule Delayed Release 1 capsule 30 minutes before morning meal Orally Once a day Rosuvastatin Calcium 5 MG Tablet 1 tablet Orally Once a day traZODone HCl 50 MG Tablet 1 tablet at bedtime as needed Orally Once a day Vitamin D Taking amLODIPine Besylate 10 MG Tablet 1 tablet Orally Once a day Taking Aspir-81 Taking Lisinopril 40 MG Tablet 1 tablet Orally Once a day Taking [place] 3 Taking Omeprazole 20 MG Capsule Delayed Release 1 capsule 30 minutes before morning meal Orally Once a day Taking Rosuvastatin Calcium 5 MG Tablet 1 tablet Orally Once a day Taking traZODone HCl 50 MG Tablet 1 tablet at bedtime as needed Orally Once a day Taking Vitamin D Not-Taking/PRNMultivitamin Atorvastatin Calcium 20 MG Tablet 1 tablet Orally Once a day Medication List reviewed and reconciled with the patientNot-Taking/PRN Multivitamin Not-Taking/PRN Atorvastatin Calcium 20 MG Tablet 1 tablet Orally Once a day Medication List reviewed and reconciled with the patient * Allergies:?N.K.D.A.yes[Aller gies Verified] Objective: * Vitals:?Ht: 5ft 10in, Wt:150 , BMI:21.52, Shoe size: 11, Ht-cm: 177.8 cm, Wt-k.04 kg. * Examination: ???Vascular: ?DP PULSES (B):?1/4, B/L.?PT PULSES (B):? 0-1/4, B/L.?CAPILLARY FILL TIME:? delayed, all digits, B/L.?TROPHIC CONDITION-TEXTURE/ELASTICITY/TURGOR/HAIR GROWTH (B):? decreased, B/L.?TEMPERTURE GRADIENT (C):? decreased, cool to cool, proximal to distal, B/L.?PIGMENTATION:?pale, B/L.?EDEMA (C):?absent, B/L.?CLAUDICATION (C):?denies, B/L.?REST PAIN:?denies, B/L.?Nails: ?NAILS are:? Elongated, overgrown, dystrophic, lytic, greater than 3mm thick, discolored and friable with crumbly malodorous subungual debris, with pain on palpation, 1-5 B/L.?Dermatologic: ?SKIN FINDINGS:?Skin exam reveals Keratotic lesion(s) located at ,?SUB MTH (s) , 1 , B/L , SUB MTH (s) , 5 , B/L , Plantar , Midfoot , Left , Heel(s) , B/L , Skin shows sign(s) of, dryness, scaling, in a stocking fashion, no fissure(s) present, B/L.? Assessment: * Assessment: 1.?Tinea unguium - B35.1???2 .?Atherosclerosis of [place] artery of both lower extremities, with unspecified presence of clinical manifestation - I70.203???3.?Pain in right toe(s) - M79.674???4.?Pain in left toe(s) - M79.675?? 5.?Xerosis of skin - L85.3???Specify :Acute problem, Uncomplicated (3),Rx Management (4)??? Plan: * Treatment: 2.?Atherosclerosis of [place] artery of both lower extremities, with unspecified presence of clinical manifestation?Procedure: 89636-NRGM SKIN LESIONS, OVER 4 3.?Xerosis of skin? Start Ammonium Lactate Cream, 12 %, 1 application, Externally, Twice a day, 30 days, 60, Refills 2.?? * Procedures:?Debride Nail 6-10:?Nail debridement?Nail debridement performed extensively to reduce/remove overall nail length, girth, thickness, subungual debris, and necrotic tissue, by manual and electrical means through the use of a nail nipper and/or dremel, to more viable healthy nail plate or bed tissue 1-5. Silver nitrate used for any petechial bleeding as necessary. Patient chooses, no pharmaceutical tx (52753).?Keratoma Treatment:?Parring or Cutting of Benign Hyperkeratotic Lesion(s)?64751 ( More than 4 Lesions ) - The Benign hyperkeratotic lesions, as described above were pared, and/or cut utilizing a sterile 15 blade, tissue nippers, and/or dremel , Q8.? * Procedure Codes:?89036 DEBRI DE NAIL, 6 OR MORE, Modifiers: XS 77442 TRIM SKIN LESIONS, OVER 4, Modifiers: XS , Q8 * Preventive Medicine:? ??Counseling:?Discussion:?-13: Office or other outpatient visit for the evaluation and management of an established patient, which required a medically appropriate history and/or examination and LOW level of DECISION MAKING for: 1 STABLE ACUTE UNCOMPLICATED PROBLEM, 2 OR MORE MINOR PROBLEMS, OR 1 STABLE CHRONIC PROBLEM, THAT POSE(S) A LOW RISK FOR MORBIDITY/MORTALITY. The visit on the day of the encounter encompassed interpreting the data and educating the patient as to the nature of their condition, treatment options available according to their individual PMH, meds, allergies, and overall health/living conditions, as well as any potential risks or complications that may occur from a failure to adhere to, and participate in, the recommended course of therapy. The discussion included a complete verbal, and/or written explanation of the examination results, any x-rays taken, the proposed diagnosis, and outline of the treatment plan. A schedule for future care needs was also explained. The patient verbalized an understanding of the instructions at this time and agreed to be an active participant in their treatment. If the patient should think of any questions or concerns after the visit, I have encouraged the patient to call the office.?Xerosis:?The patient was counseled on the diagnosis, potential etiologies, and treatment options for their skin condition. We discussed the risks and benefits of each option from performing no treatment, to utilizing OTC topical skin creams/ointments, to utilizing prescription topical creams/ointments, to utilizing customized compounded topical medications and use of nocturnal occlusion with any/all previously detailed therapies. We discussed the advantages and disadvantages of each possible treatment and importance for adherence to all the recommended therapies for optimum success and avoid potential complications such as open sore/infection/possible hospitalization. We discussed the potential effectiveness of each topical preparation as well as each ones possible side effects and/or patient medication interactions. Patient questions re: use, dosage, successful outcomes, and application consistency were reviewed and the patient verbalized that all answers were clearly understood. The patient has decided to apply Rx skin creams to their feet save the interspaces while paying special attention to the heels. Such was sent to their pharmacy at the time of visit.? ??Screening/Special Tests:?Fall Risk?Screening:?No falls in the past year ?FALLS: Screening for Future Fall Risk?Have you had any falls with injury in the past year??No * Follow Up:?prn * Images: * Sign off status: Completed Addendum: * ? true * Provider:?Niels James DPM Date:?2023 Generated for Carlitos jacobson/Isidoro/Lam on:?08/11/2024 12:59 PM EDT History and Physical Notes * HPI (History of Present Illness) Category Sub-Category Detail Notes Category Not es Skin problems Nature: dryness , scaling Location: B/L Duration: several days Course: worse At Risk footcare Pt States Last PCP Visit: Date: 4 Examination Category Sub-Category Detail Notes Category Not es Dermatologic SKIN FINDINGS: Skin exam reveal s Keratotic lesion(s) located at , SUB MTH (s) , 1 , B/L , SUB MTH (s) , 5 , B/L , Plantar , Midfoot , Left , Heel(s) , B/L , Skin shows sign(s) of, dryness, scaling, in a stocking fashion, no fissure(s) present, B/L Vascular DP PULSES (B): 1/4, B/L PT PULSES (B): 0-1/4, B/L CAPILLARY FILL TIME: delayed, all digits , B/L TEMPERTURE GRADIENT (C): decreased, cool to cool, proximal to distal, B/L TROPHIC CONDITION-TEXTURE/ELASTICITY/TURGOR/HAIR GROWTH (B): decreased, B/L EDEMA (C): absent, B/L CLAUDICATION (C): denies, B/L REST PAIN: denies, B/L PIGMENTATION: pale, B/L Nails NAILS are: Elongated, overg rown, dystrophic, lytic, greater than 3mm thick, discolored and friable with crumbly malodorous subungual debris, with pain on palpation, 1-5 B/L
--- OUTSIDE RECORDS SUMMARY | 2024-08-11 12:59 | XMS_ITS ---
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 Name Role Phone Elmer NAVA, [place] Primary Care Provider Niels Wallis Unavailable [phone] Allergies No Known Allergies REASON FOR VISIT At Risk Footcare, Painful Nail(s) aggrevated by shoes and causing difficulty standing/walking., Ingrown Nail Medications Medication SIG (Take, Route, Frequency, Duration) Notes Start Date End Date Status Lingle 3 Active Lisinopril 40 MG 1 tablet Orally Once a day for 30 day(s) Active Aspir-81 Active Rosuvastatin Calcium 5 MG 1 tablet Orall y Once a day Active Omeprazole 20 MG 1 capsule 30 minutes before morning meal Orally Once a day Active Vitamin D Active amLODIPine Besylate 10 MG 1 tablet Orall y Once a day for 30 day(s) Active Atorvastatin Calcium 20 MG 1 tablet Orally Once a day for 30 day(s) Not-Taking Ammonium Lactate 12 % 1 application Externally Twice a day for 30 days Active Multivitamin Active traZODone HCl 50 MG 1 tablet at bedtime as needed Orally Once a day Active Social History Tobacco Use: Social History Observation Description Date Details (start date - stop date) Never Smoker NA - NA Tobacco use other than smoking: Question Answer Notes Are you an other tobacco user? No Tobacco Control (Standard) Question Answer Notes Tobacco use: Nonsmoker Vital Signs Height 1od22uo in 05/10/2024 Weight 155 lbs 05/10/2024 BMI 22.24 kg/m2 05/10/2024 Blood pressure systolic 120 mm Hg 05/10/19 25 Blood pressure diastolic 70 mm Hg 025 Procedures Procedure Date Ordered Date Performed Result Body Sit e 53842-SFMIKQE NAIL, 6 OR MORE 05/10/2024 N/A 62917-Immuvqld Plate 05/10/2024 N/A 63217-KNZL SKIN LESIONS, OVER 4 05/10/2024 N/A Encounters Encounter Location Date Provider Diagnosis [facility] [place] [address] [place] [id number] 05/10/2024 Niels James Atherosclerosis of elem artery of both lower extremities, with unspecified presence of clinical manifestation I70.203 ; Tinea unguium B35.1 ; Pain in right toe(s) M79.674 ; Pain in left toe(s) M79.675 and Ingrown nail L60.0 Assessments Encounter Date Diagnosis (ICD Code) Assessment Notes Treatment Notes Treatment Clinical Notes Section Notes 05/10/2024 Atherosclerosis of elem artery of both lower extremities, with unspecified presence of clinical manifestation (ICD-10 - I70.203) 05/10/2024 Tinea unguium (ICD-10 - B35.1) 05/10/2024 Pain in right toe(s) (ICD-10 - M79.674) 05/10/2024 Pain in left toe(s) (ICD-10 - M79.675) 05/10/2024 Ingrown nail (ICD-10 - L60.0) Plan Of Treatment Pending Test Test Name Order Date 04526-KVUXZWK NAIL, 6 OR MORE 05/10/2024 33002-Xifyrzzz Plate 05/10/2024 87933-ZXKH SKIN LESIONS, OVER 4 05/10/19 25 Next Appt Details Follow Up: prn, Reason: Provider Name:Niels James , 10/04/2024 11:30:00 AM, [address] [facility], [place] [address], [place], [address], Procedure Notes * Category Sub-Category Detail Notes Nail Avulsion Procedure A fine sterile e levator was placed between the eponychium, nail fold, and nail plate to separate the structures. A sterile nail splitter, and/or sterile 316 blade, was then used to longitudinally section the nail along its entire length through the eponychium to the area under the nail fold. The offending portion of nail was from the nail bed with a rolling action and then removed with a hemostat. No underlying bone was identified. There was minimal bleeding as hemostasis was achieved through the temporary use of either a digital tourniquet or the aforementioned local with epinephrine. A bacitracin sterile dressing was applied. Local wound aftercare instructions were discussed and dispensed. The patient was informed of both conservative and future surgical procedures to prevent recurrence. Tylenol or Motrin was recommended for pain or discomfort (77897), CIRCULATION: Pt was advised as to the risk of delayed or nonhealing due to circulation. Pt is to call the office with any questions, concerns, or complications Anesthesia was accomplished TOP ICALLY with Lidocaine Hydrochloride Jelly 2 percent Location Lateral nail border, TA Debride Nail 6-10 Nail debridement Due to the cl inical pathology outlined in the exam findings, performance of this nail treatment is medically necessary as its management by an unskilled/untrained nonprofessional would put this patients foot and overall health at risk. Therefore, debridement to affected nail(s), as described in exam ( TA, T1, T2, T3, T4, T5, T6, T7, T8, T9 ), was performed exclusively by the physician of record to reduce/remove overall nail length, girth, thickness, subungual debris, and necrotic tissue, by manual and/or electrical means through the use of a nail nipper and/or dremel-type snuff grinder and screener, to a more viable healthy nail plate or bed tissue 6-10 nails in total. Silver nitrate was used for any petechial bleeding as necessary. Definitive antifungal treatment options, both pharmaceutical and surgical, have been reviewed and discussed with the patient. The patient solely prefers the use of intermittent/as needed professional debridement services for their nail condition and understands the need for additional periodic treatments to maintain effectiveness in symptomatic relief - 70387 Keratoma Treatment Parring or Cutting o f Benign Hyperkeratotic Lesion(s) (-57) More than 4 Lesions - Due to the a t risk nature of the patients medical condition as documented in the exam findings, performance of this keratoderma treatment is medically necessary as its management by an unskilled/untrained nonprofessional would put this patients foot and overall health at risk. Therefore, the benign hyperkeratotic lesions, ( 7) in total, locations as stated and described in the exam ( SUB MTH (s) , 1 , B/L , SUB MTH (s) , 5 , B/L , Plantar , Midfoot , Left , Plantar, Heel(s) , B/L), were pared, and/or cut utilizing a sterile 15 blade, tissue nippers, and/or power dremel instrumentation by the physician of record - 09935, Q8 Progress Notes * Ender RODRIGUEZDOB:1950 (73 yo M)Acc No.[id number]:05/10/2024 Progress Note Patient:?Ender RODRIGUEZ Provider:?Niels James DPM :1950???Age:73 Y???Sex:Male Chris e:05/10/2024 Address:[address] [place], [place] [phone] Pcp:Jones Payne MD Subjective: * Chief Complaints: * ???At Risk FootcarePainful N ail(s) aggrevated by shoes and causing difficulty standing/walking.Ingrown Nail * HPI: ???At Risk footcare:?Pt States Last PCP Visit:?Date?01/12/2024 * ROS:?General/Constitutional:?Nausea?denies.?Vomiting?denies.?Hunger Thirst?denies.?Loss appetite?denies.?Chills?denies.?Fatigue?admits.?Fever?denies.?Night Sweats?denies.?Unexplained weight loss?denies.?Unexplained [...] y appendectomy 1979EGD * Hospitalization/Major Diagno stic Procedure:?Denies Past Hospitalization * Family History:?Mother: dece ased, foot problems, diagnosed with Unspecified essential hypertension, Unspecified heart disease, Family history of arthritis.?Father: , dementia.? * Social History:?Tobacco Use:?Tobacco use other than smoking?Are you an other tobacco user??No ?Tobacco Control (Standard)?Tobacco use:?Nonsmoker * Medications:?TakingamLODIPin e Besylate 10 MG Tablet 1 tablet Orally Once a day Aspir-81 Lisinopril 40 MG Tablet 1 tablet Orally Once a day Lingle 3 Omeprazole 20 MG Capsule Delayed Release 1 capsule 30 minutes before morning meal Orally Once a day Rosuvastatin Calcium 5 MG Tablet 1 tablet Orally Once a day traZODone HCl 50 MG Tablet 1 tablet at bedtime as needed Orally Once a day Vitamin D Multivitamin Ammonium Lactate 12 % Cream 1 application Externally Twice a day Taking amLODIPine Besylate 10 MG Tablet 1 tablet Orally Once a day Taking Aspir-81 Taking Lisinopril 40 MG Tablet 1 tablet Orally Once a day Taking Lingle 3 Taking Omeprazole 20 MG Capsule Delayed Release 1 capsule 30 minutes before morning meal Orally Once a day Taking Rosuvastatin Calcium 5 MG Tablet 1 tablet Orally Once a day Taking traZODone HCl 50 MG Tablet 1 tablet at bedtime as needed Orally Once a day Taking Vitamin D Taking Multivitamin Taking Ammonium Lactate 12 % Cream 1 application Externally Twice a day Not-Taking/PRNAtorvastatin Calcium 20 MG Tablet 1 tablet Orally Once a day Medication List reviewed and reconciled with the patientNot-Taking/PRN Atorvastatin Calcium 20 MG Tablet 1 tablet Orally Once a day Medication List reviewed and reconciled with the patient * Allergies:?N.K.D.A.yes[Aller gies Verified] Objective: * Vitals:?Ht: 2rg92gf, Wt:155, BMI:22.24, Shoe size: 11, BP:120/70mm Hg, Ht-cm: 177.8 cm, Wt-k.31 kg. * Examination: ???Vascular: ?DP PULSES (B):?1/4, B/L.?PT PULSES (B):? 0-1/4, B/L.?CAPILLARY FILL TIME:? delayed, all digits, B/L.?TROPHIC CONDITION-TEXTURE/ELASTICITY/TURGOR/HAIR GROWTH (B):? decreased, with sparse to absent hair growth, B/L.?TEMPERTURE GRADIENT (C):? decreased, cool to cool, proximal to distal, B/L.?PIGMENTATION:?pale, B/L.?EDEMA (C):?absent, B/L.?CLAUDICATION (C):?denies, B/L.?REST PAIN:?denies, B/L.?Nails: ?NAILS are:? Elongated, overgrown, dystrophic, lytic, greater than 3mm thick, discolored and friable with crumbly malodorous subungual debris, with pain on palpation,?TA, T1, T2, T3, T4, T5, T6, T7, T8, T9.?Dermatologic: ?SKIN FINDINGS:?Skin exam reveals Keratotic lesion(s) located at , SUB MTH (s) , 1 , B/L , SUB MTH (s) , 5 , B/L , Plantar , Midfoot , Left , Plantar, Heel(s) , B/L.?Ingrown Nail: ?INSPECTION:?Reveals nail incurvation, pain on palpation, groove hypertrophy, Lateral nail border, TA.? Assessment: * Assessment: 1.?Tinea unguium - B35.1???2 .?Atherosclerosis of elem artery of both lower extremities, with unspecified presence of clinical manifestation - I70.203 (Primary)???3.?Pain in right toe(s) - M79.674???4.?Pain in left toe(s) - M79.675 ??5.?Ingrown nail - L60.0???Specify :?Lateral nail border,?TA??? Plan: * Treatment: 2.?Tinea unguium?Procedure: 74431-VMBZLAY NAIL, 6 OR MORE 3.?Ingrown nail?Procedure: 48733-Rptfdhwy Plate * Procedures:?Debride Nail 6-10:?Nail debridement?Due to the clinical pathology outlined in the exam findings, performance of this nail treatment is medically necessary as its management by an unskilled/untrained nonprofessional would put this patients foot and overall health at risk. Therefore, debridement to affected nail(s), as described in exam (?TA, T1, T2, T3, T4, T5, T6, T7, T8, T9?), was performed exclusively by the physician of record to reduce/remove overall nail length, girth, thickness, subungual debris, and necrotic tissue, by manual and/or electrical means through the use of a nail nipper and/or dremel-type snuff grinder and screener, to a more viable healthy nail plate or bed tissue 6- 10 nails in total. Silver nitrate was used for any petechial bleeding as necessary. Definitive antifungal treatment options, both pharmaceutical and surgical, have been reviewed and discussed with the patient. The patient solely prefers the use of intermittent/as needed professional debridement services for their nail condition and understands the need for additional periodic treatments to maintain effectiveness in symptomatic relief - 17752.?Keratoma Treatment:?Parring or Cutting of Benign Hyperkeratotic Lesion(s)?(-57) More than 4 Lesions - Due to the at risk nature of the patients medical condition as documented in the exam findings, performance of this keratoderma treatment is medically necessary as its management by an unskilled/untrained nonprofessional would put this patients foot and overall health at risk. Therefore, the benign hyperkeratotic lesions, ( 7) in total, locations as stated and described in the exam (?SUB MTH (s)?,?1?,?B/L?,?SUB MTH (s)?,?5?,?B/L?,?Plantar?,?Midfoot?,?Left?,?Plantar,?Heel(s)?,?B/L), were pared, and/or cut utilizing a sterile 15 blade, tissue nippers, and/or power dremel instrumentation by the physician of record - 01194, Q8.?Nail Avulsion:?Location?Lateral nail border,?TA.?Anesthesia?was accomplished TOPICALLY with Lidocaine Hydrochloride Jelly 2 percent.?Procedure?A fine sterile elevator was placed between the eponychium, nail fold, and nail plate to separate the structures. A sterile nail splitter, and/or sterile 316 blade, was then used to longitudinally section the nail along its entire length through the eponychium to the area under the nail fold. The offending portion of nail was from the nail bed with a rolling action and then removed with a hemostat. No underlying bone was identified. There was minimal bleeding as hemostasis was achieved through the temporary use of either a digital tourniquet or the aforementioned local with epinephrine. A bacitracin sterile dressing was applied. Local wound aftercare instructions were discussed and dispensed. The patient was informed of both conservative and future surgical procedures to prevent recurrence. Tylenol or Motrin was recommended for pain or discomfort (01632), CIRCULATION: Pt was advised as to the risk of delayed or nonhealing due to circulation. Pt is to call the office with any questions, concerns, or complications.? * Procedure Codes:?37254 DEBRI DE NAIL, 6 OR MORE, Modifiers: XS 17567 Avulsion Plate, Modifiers: XS , [id number] TRIM SKIN LESIONS, OVER 4, Modifiers: XS , Q8 * Follow Up:?prn * Images: * Sign off status: Completed true * Provider:?Niels James DPM Date:?2024 Generated for Carlitos jacobson/Isidoro/eTransmitting on:?08/11/2024 12:59 PM EDT History and Physical Notes * HPI (History of Present Illness) Category Sub-Category Detail Notes Category Not es At Risk footcare Pt States Last PCP Visit: Date: 4 Examination Category Sub-Category Detail Notes Category Not es Ingrown Nail INSPECTION: Reveals nail inc urvation, pain on palpation, groove hypertrophy, Lateral nail border, TA Dermatologic SKIN FINDINGS: Skin exam reveal s Keratotic lesion(s) located at , SUB MTH (s) , 1 , B/L , SUB MTH (s) , 5 , B/L , Plantar , Midfoot , Left , Plantar, Heel(s) , B/L Vascular DP PULSES (B): 1/4, B/L PT PULSES (B): 0-1/4, B/L CAPILLARY FILL TIME: delayed, all digits , B/L TEMPERTURE GRADIENT (C): decreased, cool to cool, proximal to distal, B/L TROPHIC CONDITION-TEXTURE/ELASTICITY/TURGOR/HAIR GROWTH (B): decreased, with sparse to absent hair gr owth, B/L EDEMA (C): absent, B/L CLAUDICATION (C): denies, B/L REST PAIN: denies, B/L PIGMENTATION: pale, B/L Nails NAILS are: Elongated, overg rown, dystrophic, lytic, greater than 3mm thick, discolored and friable with crumbly malodorous subungual debris, with pain on palpation, TA, T1, T2, T3, T4, T5, T6, T7, T8, T9
--- OUTSIDE RECORDS SUMMARY | 2024-08-11 13:00 | XMS_ITS ---
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 Phone Elmer NAVA, [place] Primary Care Provider Niels Wallis Unavailable [phone] Allergies No Known Allergies REASON FOR VISIT At Risk Footcare, Painful Nail(s) aggrevated by shoes and causing difficulty standing/walking., Skin problem(s) Medications Medication SIG (Take, Route, Frequency, Duration) Notes Start Date End Date Status Lisinopril 40 MG 1 tablet Orally Once a day for 30 day(s) Active Aspir-81 Active amLODIPine Besylate 10 MG 1 tablet Orall y Once a day for 30 day(s) Active Omeprazole 20 MG 1 capsule 30 minutes before morning meal Orally Once a day Active Proctor 3 Active Multivitamin Active Atorvastatin Calcium 20 MG 1 tablet Orally Once a day for 30 day(s) Not-Taking traZODone HCl 50 MG 1 tablet at bedtime as needed Orally Once a day Active Ammonium Lactate 12 % 1 application Externally Twice a day for 30 days Active Vitamin D Active Rosuvastatin Calcium 5 MG 1 tablet Orall y Once a day Active Social History Tobacco [...] No Vital Signs Height 5ft 10in in 01/19/2024 Weight 152 lbs 01/19/2024 BMI 21.81 kg/m2 01/19/2024 Procedures Procedure Date Ordered Date Performed Result Body Sit e 78047-ZNKQCMZ NAIL, 6 OR MORE 01/19/2024 N/A 92252-TIGX SKIN LESIONS, OVER 4 01/19/2024 N/A Encounters Encounter Location Date Provider Diagnosis [facility] [place] [address] [place] [phone] 01/19/2024 Nielstamera Beardier Atherosclerosis of flandre[place] artery of both lower extremities, with unspecified presence of clinical manifestation I70.203 ; Tinea unguium B35.1 ; Pain in right toe(s) M79.674 ; Pain in left toe(s) M79.675 and Xerosis of skin L85.3 Assessments Encounter Date Diagnosis (ICD Code) Assessment Notes Treatment Notes Treatment Clinical Notes Section Notes 01/19/2024 Atherosclerosis of [place]andreau artery of both lower extremities, with unspecified presence of clinical manifestation (ICD-10 - I70.203) 01/19/2024 Tinea unguium (ICD-10 - B35.1) 01/19/2024 Pain in right toe(s) (ICD-10 - M79.674) 01/19/2024 Pain in left toe(s) (ICD-10 - M79.675) 01/19/2024 Xerosis of skin (ICD-10 - L85.3) Plan Of Treatment Medication Medication Name Sig Start Date Stop Date Notes Ammonium Lactate 12 % 1 application Exte rnally Twice a day for 30 days Pending Test Test Name Order Date [id number]-FSGDNWC NAIL, 6 OR MORE 01/19/2024 35393-MMDP SKIN LESIONS, OVER 4 01/19/20 24 Next Appt Details Follow Up: prn, Reason: Provider Name:Niels James , 10/04/2024 11:30:00 AM, [address] [facility], [place] [address], [place], [address], Procedure Notes * Category Sub-Category Detail Notes Debride Nail 6-10 Nail debridement Performance o f this nail treatment by a nonprofessional would put this patients foot and overall health at risk. Therefore, nail debridement was performed extensively to reduce/remove overall nail length, girth, thickness, subungual debris, and necrotic tissue, by manual and/or electrical means through the use of a nail nipper and/or dremel-type sapphire stylus grinder, to a more viable healthy nail plate or bed tissue 6-10. Silver nitrate used for any petechial bleeding as necessary. Definitive antifungal treatment options have been reviewed and discussed with the patient. The patient chooses, no pharmaceutical tx - 02284 Keratoma Treatment Parring or Cutting o f Benign Hyperkeratotic Lesion(s) (-57) More than 4 Lesions - The Benign hyperkeratotic lesions, as described above were pared, and/or cut utilizing a sterile 15 blade, tissue nippers, and/or dremel - 13588 , Q8 Progress Notes * Ender RODRIGUEZDOB:1950 (73 yo M)Acc No.[id number]:01/19/2024 Progress Note Patient:?ÓSCARSANJIV Ender Sierra Provider:?Niels James DPM :1950???Age:73 Y???Sex:Male Chris e:01/19/2024 Address:[address] [place], [place] [phone] Pcp:Jones Payne MD Subjective: * Chief Complaints: * ???At Risk FootcarePainful N ail(s) aggrevated by shoes and causing difficulty standing/walking.Skin problem(s) * HPI: ???At Risk footcare:?Pt States Last PCP Visit:?Date?01/12/2024 ???Skin problems:?Treatments:?medication ( AM Lactin ) , admits nonadherence to recommended application - no reason given, just havent done it yet .? * ROS:?General/Constitutional:?Nausea?denies.?Vomiting?denies.?Hunger Thirst?denies.?Loss appetite?denies.?Chills?denies.?Fatigue?admits.?Fever?denies.?Night Sweats?denies.?Unexplained weight loss?denies.?Unexplained [...] ?Marital status: single. 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 * Medications:?TakingamLODIPin e Besylate 10 MG Tablet 1 tablet Orally Once a day Aspir-81 Lisinopril 40 MG Tablet 1 tablet Orally Once a day Proctor 3 Omeprazole 20 MG Capsule Delayed Release 1 capsule 30 minutes before morning meal Orally Once a day Rosuvastatin Calcium 5 MG Tablet 1 tablet Orally Once a day traZODone HCl 50 MG Tablet 1 tablet at bedtime as needed Orally Once a day Vitamin D Ammonium Lactate 12 % Cream 1 application Externally Twice a day Multivitamin Taking amLODIPine Besylate 10 MG Tablet 1 tablet Orally Once a day Taking Aspir-81 Taking Lisinopril 40 MG Tablet 1 tablet Orally Once a day Taking Proctor 3 Taking Omeprazole 20 MG Capsule Delayed Release 1 capsule 30 minutes before morning meal Orally Once a day Taking Rosuvastatin Calcium 5 MG Tablet 1 tablet Orally Once a day Taking traZODone HCl 50 MG Tablet 1 tablet at bedtime as needed Orally Once a day Taking Vitamin D Taking Ammonium Lactate 12 % Cream 1 application Externally Twice a day Taking Multivitamin Not-Taking/PRNAtorvastatin Calcium 20 MG Tablet 1 tablet Orally Once a day Medication List reviewed and reconciled with the patientNot-Taking/PRN Atorvastatin Calcium 20 MG Tablet 1 tablet Orally Once a day Medication List reviewed and reconciled with the patient * Allergies:?N.K.D.A.yes[Aller param Verified] Objective: * Vitals:?Ht: 5ft 10in, Wt:152 , BMI:21.81, Shoe size: 11, Ht-cm: 177.8 cm, Wt-k.95 kg. * Examination: ???Vascular: ?DP PULSES (B):?1/4, [...] Left , Heel(s) , B/L , Skin STILL, shows sign(s) of, dryness, scaling, in a stocking fashion, no fissure(s) present, B/L.? Assessment: * Assessment: 1.?Tinea unguium - B35.1???2 .?Atherosclerosis of flandreau artery of both lower extremities, with unspecified presence of clinical manifestation - I70.203???3.?Pain in right toe(s) - M79.674???4.?Pain in left toe(s) - M79.675?? 5.?Xerosis of skin - L85.3???Specify :Acute problem, Uncomplicated (3),Rx Management (4),Response to treatment - Unchanged,Nonadherent to recommendations??? Plan: * Treatment: 2.?Atherosclerosis of flandreau artery of both lower extremities, with unspecified presence of clinical manifestation?Procedure: 82715-TSQT SKIN LESIONS, OVER 4 3.?Xerosis of skin? Start Ammonium Lactate Cream, 12 %, 1 application, Externally, Twice a day, 30 days, 60, Refills 2.?? * Procedures:?Debride Nail 6-10:?Nail debridement?Performance of this nail treatment by a nonprofessional would put this patients foot and overall health at risk. Therefore, nail debridement was performed extensively to reduce/remove overall nail length, girth, thickness, subungual debris, and necrotic tissue, by manual and/or electrical means through the use of a nail nipper and/or dremel-type sapphire stylus grinder, to a more viable healthy nail plate or bed tissue 6-10. Silver nitrate used for any petechial bleeding as necessary. Definitive antifungal treatment options have been reviewed and discussed with the patient. The patient chooses, no pharmaceutical tx - 67307.?Keratoma Treatment:?Parring or Cutting of Benign Hyperkeratotic Lesion(s)?(-57) More than 4 Lesions - The Benign hyperkeratotic lesions, as described above were pared, and/or cut utilizing a sterile 15 blade, tissue nippers, and/or dremel - 56539 , Q8.? * Procedure Codes:?34849 DEBRI DE NAIL, 6 OR MORE, Modifiers: XS 56523 TRIM SKIN LESIONS, OVER 4, Modifiers: XS [...] patient to call the office.?Xerosis:?The patient was AGAIN counseled on the diagnosis, potential etiologies, and [...] interspaces while paying special attention to the heels.? ??Screening/Special Tests:?Fall Risk?Screening:?No falls in the past year ?FALLS: Screening for Future Fall Risk?Have you had any falls with injury in the past year??No * Follow Up:?prn * Images: * Sign off status: Completed true * Provider:?Niels James DPM Date:?2023 Generated for Carlitos jacobson/Isidoro/Lam on:?08/11/2024 12:59 PM EDT History and Physical Notes * HPI (History of Present Illness) Category Sub-Category Detail Notes Category Not es Skin problems Treatments: medication ( AM Lactin ) , admits nonadherence to recommended application - no reason given, just havent done it yet At Risk footcare Pt States Last PCP Visit: Date: 01/12/2024 Examination Category Sub-Category Detail Notes Category Not es Dermatologic SKIN FINDINGS: Skin exam reveal s Keratotic lesion(s) located at , SUB MTH (s) , 1 , B/L , SUB MTH (s) , 5 , B/L , Plantar , Midfoot , Left , Heel(s) , B/L , Skin STILL, shows sign(s) of, dryness, scaling, in a [...]
--- OUTSIDE RECORDS SUMMARY | 2024-08-11 13:00 | XMS_ITS | Patient Health Record ---
[facility] Address [address] [place] [address] Care Team Providers Care Dispatch Coordinator Name Role Phone Elmer NAVA, [place] Primary Care Provider Niels Wallis Unavailable [phone] Allergies No Known Allergies Reason For Referral No Information Medications Medication SIG (Take, Route, Frequency, Duration) Notes Start Date End Date Status Stroud 3 Active Lisinopril 40 MG 1 tablet Orally Once a day for 30 day(s) Active Aspir-81 Active Vitamin D Active traZODone HCl 50 MG 1 tablet at bedtime as needed Orally Once a day Active Rosuvastatin Calcium 5 MG 1 tablet Orall y Once a day Active Omeprazole 20 MG 1 capsule 30 minutes before morning meal Orally Once a day Active amLODIPine Besylate 10 MG 1 tablet Orall y Once a day for 30 day(s) Active Atorvastatin Calcium 20 MG 1 tablet Orally Once a day for 30 day(s) Not-Taking Ammonium Lactate 12 % 1 application Externally Twice a day for 30 days Active Multivitamin Active Social History Tobacco Use: Social History Observation Description Date Details (start date - stop date) Never Smoker NA - NA Alcohol Screen Question Answer Notes Did you have a drink containing alcohol in the p ast year? No Points 0 Interpretation Negative Tobacco use other than smoking: Question Answer Notes Are you an other tobacco user? 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, with unspecified presence of clinical manifestation (I70.203) Active confirmed Vital Signs Blood pressure diastolic 70 mm Hg 05/10/2024 Height 2bi53ga in 05/10/2024 Blood pressure systolic 120 mm Hg 05/10/2024 Weight 155 lbs 05/10/2024 BMI 22.24 kg/m2 05/10/2024 Procedures Procedure Date Ordered Date Performed Result Body Sit e 30417-MHRJVXM NAIL, 6 OR MORE 08/18/2023 N/A 95055-KYEJ SKIN LESIONS, OVER 4 08/18/2023 N/A 75432-ERPAOOO NAIL, 6 OR MORE 10/27/2023 N/A 36052-LZXA SKIN LESIONS, OVER 4 10/27/2023 N/A 09833-VBVITMM NAIL, 6 OR MORE 01/19/2024 N/A 89965-YRVD SKIN LESIONS, OVER 4 01/19/2024 N/A 26647-ROUKMXP NAIL, 6 OR MORE 05/10/2024 N/A 53393-Srjbyypz Plate 05/10/2024 N/A 49575-JJHB SKIN LESIONS, OVER 4 05/10/2024 N/A Encounters Encounter Location Date Provider Diagnosis [address] [address] 08/18/2023 Niels James 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, with unspecified presence of clinical manifestation I70.203 ; Tinea unguium B35.1 ; Pain in right toe(s) M79.674 ; Pain in left toe(s) M79.675 ; Other hammer toe(s) (acquired), right foot M20.41 ; Arthritis of joint of lesser toe, right M19.071 ; Other hammer toe(s) (acquired), left foot M20.42 and Arthritis of joint of lesser toe, left M19.[address] [address] 10/27/2023 Niels James 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, with unspecified presence of clinical manifestation I70.203 ; Tinea unguium B35.1 ; Pain in right toe(s) M79.674 ; Pain in left toe(s) M79.675 and Xerosis of skin L85.[address] [address] 01/19/2024 Niels James 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, with unspecified presence of clinical manifestation I70.203 ; Tinea unguium B35.1 ; Pain in right toe(s) M79.674 ; Pain in left toe(s) M79.675 and Xerosis of skin L85.3 [facility] [place] [address] [facility] [address] [place] [address] 05/10/2024 Niels James 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, with unspecified presence of clinical manifestation I70.203 ; Tinea unguium B35.1 ; Pain in right toe(s) M79.674 ; Pain in left toe(s) M79.675 and Ingrown nail L60.0 Assessments Encounter Date Diagnosis (ICD Code) Assessment Notes Treatment Notes Treatment Clinical Notes Section Notes 08/18/2023 Tinea unguium (ICD-10 - B35.1) 08/18/2023 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, with unspecified presence of clinical manifestation (ICD-10 - I70.203) 10/27/2023 Tinea unguium (ICD-10 - B35.1) 10/27/2023 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, with unspecified presence of clinical manifestation (ICD-10 - I70.203) 01/19/2024 Tinea unguium (ICD-10 - B35.1) 01/19/2024 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, with unspecified presence of clinical manifestation (ICD-10 - I70.203) 05/10/2024 Tinea unguium (ICD-10 - B35.1) 05/10/2024 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, with unspecified presence of clinical manifestation (ICD-10 - I70.203) 05/10/2024 Pain in right toe(s) (ICD-10 - M79.674) 01/19/2024 Pain in right toe(s) (ICD-10 - M79.674) 10/27/2023 Pain in right toe(s) (ICD-10 - M79.674) 08/18/2023 Pain in right toe(s) (ICD-10 - M79.674) 08/18/2023 Pain in left toe(s) (ICD-10 - M79.675) 10/27/2023 Pain in left toe(s) (ICD-10 - M79.675) 01/19/2024 Pain in left toe(s) (ICD-10 - M79.675) 05/10/2024 Pain in left toe(s) (ICD-10 - M79.675) 05/10/2024 Ingrown nail (ICD-10 - L60.0) 01/19/2024 Xerosis of skin (ICD-10 - L85.3) 10/27/2023 Xerosis of skin (ICD-10 - L85.3) 08/18/2023 Other hammer toe(s) (acquired), right foot (ICD-10 - M20.41) 08/18/2023 Arthritis of joint of lesser toe, right (ICD-10 - M19.071) 08/18/2023 Other hammer toe(s) (acquired), left foot (ICD-10 - M20.42) 08/18/2023 Arthritis of joint of lesser toe, left (ICD-10 - M19.072) Plan Of Treatment Pending Test Test Name Order Date 57593-KZGBJOF NAIL, 6 OR MORE 08/18/2023 16664-PHVVURL NAIL, 6 OR MORE 10/27/2023 04177-HBGMHGW NAIL, 6 OR MORE 01/19/2024 91588-MUXMRAN NAIL, 6 OR MORE 05/10/2024 34961-Awikbfjd Plate 05/10/2024 93354-GMPE SKIN LESIONS, OVER 4 05/10/19 25 56098-ROAN SKIN LESIONS, OVER 4 01/19/20 24 95316-ZSTE SKIN LESIONS, OVER 4 10/27/19 24 60482-QQLN SKIN LESIONS, OVER 4 08/18/19 24 Next Appt Details Provider Name:Niels James , 10/04/2024 11:30:00 AM, [address] [facility] [address], [place], [address], Insurance Providers Payer Name Payer Address Payer Phone Subscriber Number Group Number Insured Name Patient Relationship to Insured Coverage Start Date Coverage End Date [facility] [address] [place] [phone] [id number] Ender Castellanos Self - patient is the insured Medical (General) History Medical History History ICD Code Barretts esophagus Hypertension, benign Reflux ( GERD) Hypercholesterolemia Vitamin D deficiency eosinophilia kyphoscoliosis Cataracts Anxiety CAD Surgical History Surgery Date(Month/Year) colonoscopy appendectomy 1978 EGD
[2024-08-11 13:16] LABS: MANUAL DIFF FLAG NO
[2024-08-11 13:27] LABS: Basophils Absolute Auto 0.1 X10*3/uL (0.0-0.2); Eosinophils Absolute Auto 0.7 X10*3/uL (0.0-0.4); Eosinophils Percent Auto 9.8 % (0-4); Hematocrit 40.5 % (42.0-52.0); Hemoglobin 13.4 g/dl (14.0-18.0); Imm Gran Abs Auto 0.02 X10*3/uL (0.00-0.03); Imm Gran Pct Auto 0.3 % (0.0-0.4); Lymphocytes Absolute Auto 1.7 X10*3/uL (1.2-4.9); Lymphocytes Percent Auto 23.2 % (20-40); Mean Corpuscular HGB Conc 33.1 g/dl (31.0-36.0); Mean Corpuscular Hemoglobin 29.5 pg (27.0-33.0); Mean Platelet Volume 9.5 fL (9.4-12.4); Monocytes Absolute Auto 0.5 X10*3/uL (0.1-1.2); Monocytes Percent Auto 7.3 % (2-11); Neutrophils Absolute Auto 4.3 x10*3/uL (2.0-8.3); Neutrophils Percent Auto 58.4 % (45-73); Platelet Count 352 X10*3/uL (160-400); Red Blood Count 4.55 X10*6/uL (4.60-5.80); Red Cell Distribution Width 13.7 % (11.0-16.0); White Blood Count 7.3 X10*3/uL (4.8-10.8)
[2024-08-11 13:36] LABS: Appearance Urine Clear; Color Urine Yellow; Glucose Urine UA Negative (Negative); Leukocyte Esterase Urine Negative (Negative); Nitrite Urine Negative (Negative); PH 5.5 (5.0-9.0); Urine Blood Negative (Negative); Urine Ketones Negative (Negative); Urine Protein Negative (Neg-Trace)
[2024-08-11 14:08] LABS: Alanine Aminotransferase 22 U/L (0-40); Albumin Level 4.2 g/dL (3.5-5.0); Alkaline Phosphatase 85 U/L (39-117); Anion Gap 9 (12-20); Aspartate Amino Transferase 19 U/L (5-37); Bilirubin Total 0.3 mg/dL (0.0-1.0); Blood Urea Nitrogen 19 mg/dL (9-16); Carbon Dioxide 25 mmol/L (22-29); Chloride 111 mmol/L (96-108); Cholesterol 157 mg/dL (<200); Estimated Glomerular Filt Rate > 60; Glucose Fasting 108 mg/dL (60-99); HDL Cholesterol 56 mg/dL (>40); LDL Cholesterol Calculated 89 mg/dL (<100); Potassium 4.3 mmol/L (3.3-5.1); Sodium 141 mmol/L (135-145); Total Protein 7.1 g/dL (6.5-8.0); Triglycerides 64 mg/dL (<150)
[2024-08-11 14:12] LABS: TSH reflex Free T4 2.03 uIU/mL (0.32-4.0); Vitamin D 25-OH Total 58.4 ng/mL (>30)
[2024-08-11 14:23] LABS: Folate 14.4 ng/mL (> or = 4.0); Vitamin B12 633 pg/mL (200-900)
== END 2024-08-11 12:14 | disposition home or self-care (01) ==
LOC: HO.HMGCLDS 12:13
PROVIDERS: PCP Internal Medicine; Visit Provider Internal Medicine
DX: Z00.00 Encounter for general adult medical examination without abnormal findings (principal); E78.00 Pure hypercholesterolemia, unspecified; E55.9 Vitamin D deficiency, unspecified; E53.8 Deficiency of other specified B group vitamins; R30.0 Dysuria; D64.9 Anemia, unspecified
CPT/HCPCS: 36415; 80053; 80061; 81003; 82306; 82607; 82746; 84443; 85025

== ENCOUNTER 2024-08-23 12:50 | Outpatient (AMB) | payer MEDICARE, SELFPAY ==
[2024-08-23 12:52] VITALS: BP 110/64; PULSE 109; O2SAT 97; BMI 21.8
--- NOTE | 2024-08-23 12:52 | A.OFFPC_ITS ---
Vital Signs 08/23/24 12:52 Height 5 ft 10 in Weight 152 lb BMI 21.8 BP 110/64 Blood Pressure Location Lt brachial Position Sitting Pulse 109 H Pulse Source Pulse Oximeter Pulse Oximetry (%) 97 Oxygen Delivery Method Room Air Intake Visit Reasons: Annual Exam Scaleman Required: No Accompanied by: Self / Same As Patient Allergies No Known Allergies Allergy (Verified 08/23/24 13:18) Medication List - Last Reconciled 08/23/24 by oJnes Payne MD amlodipine 10 mg PO DAILY 90 days aspirin 81 mg PO DAILY lisinopril 40 mg PO DAILY 90 days multivitamin 1 tab PO DAILY omega 8-dnw-tqx-fish oil 1,200 (144-216) mg (Fish Oil) 1 cap PO DAILY omeprazole 20 mg PO DAILY 90 days rosuvastatin 5 mg PO DAILY 90 days trazodone 75 mg (1.5 x 50 mg) PO BEDTIME PRN 90 days Tobacco use date assessed: 08/23/24 Fall risk assessment: No Falls in past year Last assessed Fall Risk: 08/23/24 Dental Screening Dental Screen Date: 08/23/24 Did you have a dental visit in the last 12 months?: Yes Did you have a dental problem in the last 6 months where you did not have access to dental care?: No Was dental information given to patient?: Patient has dentist HPI Annual Exam HPI Details Patient comes in today for his annual physical examination States that he feels okay He denies any headaches; states that he still has on and off dizziness although they have been occurring less often than they did recently Denies any chest pains, no shortness of breath No nausea/vomiting, no abdominal pain No change in bowel habits noted He denies any acute urinary symptoms States that he would like to see Podiatry to help address some of his toenails, which are getting very thick, discolored and disfigured He needs a few of his Rx refilled He had his follow-up labs done a couple of weeks ago - to discuss his results Patient had his screening colonoscopy last done in [address] Bailey and he will not be due for repeat colonoscopy until 2026 Patient is also requesting for a referral to Dermatology for his annual skin check/exam He also needs a referral to go back to see his retina specialist for his eye - he has a branch retinal vein occlusion PFSH Medical History (Updated 08/28/24 @ 02:12 by Jones Payne MD) Branch retinal vein occlusion Vitamin D deficiency Washington's esophagus with dysplasia Kyphoscoliosis Eosinophilia Pure hypercholesterolemia Benign essential hypertension GERD without esophagitis Surgical History (Updated 08/23/24 @ 13:34 by Jones Payne MD) History of esophagogastroduodenoscopy (EGD) H/O colonoscopy Hx of appendectomy (~1978) Family History Father Dementia Mother Heart disease Social History Housing: House Alcohol intake: current Alcohol intake frequency: does not drink Patient Tobacco Use Status: Never used Tobacco e-Cigarette/Vaping Use: Never Used Second Hand Smoke Exposure: Yes service: No Current occupational status: retired Cognitive needs: No Hearing needs: No Vision needs: Yes Questionnaire PHQ-9 Over the last 2 weeks, how often have you been bothered by any of the following problems? 1. Little interest or pleasure in doing things: not at all 2. Feeling down, depressed, or hopeless: not at all 3. Trouble falling or staying asleep, or sleeping too much: not at all 4. Feeling tired or having little energy: not at all 5. Poor appetite or overeating: not at all 6. Feeling bad about yourself - or that you are a failure or have let yourself or your family down: not at all 7. Trouble concentrating on things, such as reading the newspaper or watching television: not at all 8. Moving or speaking so slowly that other people could have noticed. Or the opposite - being so fidgety or restless that you have been moving around a lot more than usual: not at all 9. Thoughts that you would be better off or of hurting yourself in some way: not at all Total score: 0 Depression Screening Interpretation: Negative Depression Screening Done: Yes 83618 - PHQ-9 Billing: Yes Source: Developed by Drs. Domenico Martin, Kaylah Wiley, Jayce Centeno and colleagues, with an educational raul from [email or web address]). Thrive Questionnaire Date Thrive assessed: 08/23/24 I am a: Patient What is your living situation today?: I have a steady place to live Within the past 12 months, did the food you bought not last and you didn't have the money to get more?: Never true Within the past 12 months, did you worry whether your food would run out before you got money to buy more?: Never true Do you have trouble paying for medicines?: No Do you have trouble getting transportation to medical appointments?: No Do you have trouble paying your heating and electricity bill?: No Do you have trouble taking care of your child, family member or friend?: No Do you have trouble with day-to-day activities such as bathing, preparing meals, shopping, managing finances, etc.?: No Are you currently unemployed and looking for a job?: No Are you interested in more education?: No Please select the resources that you would like help with: None Currently or been in a relationship where the following occur: No concerns reported THRIVE Score: 0 AUDIT C Alcohol Use Questionnaire (AUDIT-C) 1. How often do you have a drink containing alcohol?: Never 3. How often do you have six or more drinks on one occasion?: Never Total Score: 0 Score Reviewed/Action Taken: Yes JOSE-7 AMB Questionnaire JOSE-7 Date JOSE - 7 assessed: 08/23/24 Feeling nervous, anxious, or on edge: 3 = Nearly every day Not being able to stop or control worryin = More than half the days Worrying too much about different things: 2 = More than half the days Trouble relaxin = Several days Being so restless that it is hard to sit still: 1 = Several days Becoming easily annoyed or irritable: 1 = Several days Feeling afraid as if something awful might happen: 2 = More than half the days Total JOSE-7 score (0-4 normal; 5-9 mild; 10-14 moderate; 15-21 severe): 12 Source: Developed by Drs. Domenico Martin, Kaylah Wiley, Jayce Centeno and colleagues, with an educational raul from [employer] ([email or web address]). Review of Systems Const Denies chills, Denies fatigue, Denies fever(s), Denies headache(s), Denies malaise and Denies weakness Eyes Denies blurry vision, Denies change in vision, Denies irritation and Denies itchy eyes ENT Denies dysphagia, Reports dizziness (on and off), Denies otalgia, Denies headache(s), Denies nasal congestion, Denies neck pain, Denies odynophagia and Denies sore throat Card Denies chest pain, Denies rapid heart rate, Denies irregular heart rhythm, Denies palpitations and Denies dyspnea Resp Denies chest congestion, Denies cough, Denies dyspnea and Denies wheezing GI Denies abdominal pain, Denies bloating, Denies constipation, Denies dysphagia, Denies heartburn, Denies diarrhea, Denies nausea, Denies odynophagia and Denies vomiting Denies hematuria, Denies difficulty urinating, Denies dysuria, Denies urinary frequency and Denies urinary urgency Musc Denies back pain, Denies arthralgias, Denies joint swelling, Denies muscle weakness and Denies neck pain Skin/Breast Details: thick, discolored and disfigured toenails Denies change in pigmentation, Denies lesions, Denies rash and Denies unusual bruising Neuro Reports dizziness (on and off), Denies headache(s), Denies paresthesias and Denies weakness Endo Denies fatigue and Denies palpitations Aller/Immun Denies itchy eyes and Denies wheezing Physical exam (Primary Care) Vital Signs: Last Vital Signs Pulse 109 H 08/23/24 12:52 BP 110/64 08/23/24 12:52 Pulse Ox 97 08/23/24 12:52 Oxygen Delivery Method Room Air 08/23/24 12:52 BMI result Body Mass Index 21.8 Tobacco/Smoking Status: Tobacco use Status Tobacco use date assessed 08/23/24 08/23/24 12:59 Patient Tobacco Use Status Never used Tobacco 08/23/24 12:59 e-Cigarette/Vaping Use Never Used 08/23/24 12:59 PHQ-9: PHQ-9 Score PHQ-9: Total score 0 08/23/24 13:23 Depression Screening Interpretation: Negative Thrive Assessment: Date of Thrive Assessment Date Thrive assessed 08/23/24 08/23/24 12:59 Currently or been in a relationship where the following occur: No concerns reported Advance Care Planning discussion: Completed/Scanned Date of discussion: 08/23/24 Who was present: patient, PCP Forms completed: Health Care Proxy and MOLST Time spent: 16-45 minutes Actual minutes spent: 20 Const General: no acute distress, alert and awake Orientation/consciousness: patient oriented x3 HENMT Head: Yes normocephalic and Yes atraumatic Ears: external ears normal, TM's normal bilaterally and EAC's normal General nose exam: No nasal discharge present Face and sinus: Yes normal facial exam and Yes sinuses nontender Teeth and gingiva: dentition normal Throat: Yes posterior oropharynx normal and Yes tonsils normal (no TP congestion) Eyes Eyelids: Yes eyelids normal Conjunctivae: conjunctivae normal Pupils: Equal, round and reactive pupils present EOM: EOMs intact bilaterally Neck Neck: Yes no lymphadenopathy and Yes supple Thyroid: Thyroid normal Resp Auscultation: clear to auscultation bilaterally, no rales and no wheezes Cardio Rate: regular rate Rhythm: regular rhythm Heart sounds: no murmurs GI Palpation (GI): Soft to palpation, nontender and No hepatosplenomegaly present Auscultation: normal bowel sounds General: Yes no CVA tenderness Back/Spine/Pelvis Back: no CVA tenderness Thoracic/Lumbar Spine: thoracic and lumbar spine normal to inspection Skin Lesions: no lesions Rashes: no rashes Neuro General: patient oriented x3, moves all extremities, no focal motor deficits and CN's II-XI intact bilaterally Cranial nerves: Yes Equal, round and reactive pupils present Cognition (Neuro): normal cognition Gait exam (Neuro): Normal gait present Extrem General: Yes no clubbing, cyanosis or edema Results Reviewed Results Reviewed: Laboratory Tests 08/11/24 12:17 WBC 7.3 Hgb 13.4 L Hct 40.5 L Plt Count 352 Sodium 141 Potassium 4.3 Creatinine 0.80 Estimated GFR > 60 Fasting Glucose 108 H Calcium 9.0 AST 19 ALT 22 Triglycerides 64 Cholesterol 157 LDL Cholesterol, Calc 89 HDL Cholesterol 56 Vitamin B12 633 25-OH Vitamin D Total 58.4 TSH 2.03 Ur Specific [place] 1.020 Urine Protein Negative Urine Glucose (UA) Negative Urine Blood Negative Urine Nitrite Negative Ur Leukocyte Esterase Negative Coding Level of Care Code Est Pt Prev Care >65y(30897) Diagnoses Annual physical exam Z00.00 Benign essential hypertension I10 Pure hypercholesterolemia E78.00 Dizziness of unknown cause R42 Washington's esophagus with dysplasia K22.719 Kyphoscoliosis M41.9 Anemia, unspecified type D64.9 Anemia type: unspecified type Vitamin D deficiency E55.9 Branch retinal vein occlusion of left eye with macular edema H34.8320 Retinal vein occlusion complication status: with macular edema Laterality: left Keratosis L57.0 Onycholysis of toenail L60.1 Additional Codes PHQ-9 - 05897 - PHQ-9 Billing: Yes ([id number]) Vital Signs *Quality* - Advance Care Planning discussion: Completed/Scanned ([id number]) Vital Signs *Quality* - Time spent: 16-45 minutes ([id number]) Assessment & Plan Assessment & Plan (1) Annual physical exam: Code(s): Z00.00 - Encounter for general adult medical examination without abnormal findings Category: Medical Plan: Results of his labs done a couple of weeks ago reviewed and discussed with patient He is up-to-date with his colon cancer screening - he had his screening colonoscopy last done in [address] Bailey and he will not be due for repeat colonoscopy until 2026 (2) Benign essential hypertension: Code(s): I10 - Essential (primary) hypertension Category: Medical Plan: Reinforced low sodium diet - goal is systolic BP of at least 130 to 140 mm or less Continue Lisinopril 40 mg QD and Amlodipine 10 mg QD Patient is reminded to continue monitoring his blood pressure regularly Chest x-rays and echocardiogram done a couple of years ago both came back normal Renal doppler done in 2022 revealed no significant findings - there is elevated proximal renal artery velocity of 214 cm/s but other parameters are normal. Findings are suspicious for mild stenosis at the origin. Normal left renal Doppler parameters suggestive of no renal artery stenosis. Elevated mid aortic velocity may be secondary to atherosclerosis and essential hypertension (3) Pure hypercholesterolemia: Code(s): E78.00 - Pure hypercholesterolemia, unspecified Category: Medical Plan: Patient is advised that his cholesterol levels remain well-controlled on his recent labs Reinforced low cholesterol diet Continue Rosuvastatin 5 mg QD Will recheck his labs and fasting lipids in 6 months for follow up (4) Dizziness of unknown cause: Code(s): R42 - Dizziness and giddiness Category: Medical Plan: Work ups done so far, including chest x-rays, echocardiogram, renal doppler and carotid US, all came back normal/negative Myocardial perfusion study done in January 2023 also came out normal - (+) normal myocardial perfusion; Gated LVEF is 70%. Transient ischemic dilatation is not present Patient has tried splitting up his BP meds at our recommendation to see it this will help alleviate his recurrent dizziness but to no avail He was eventually referred to and seen by ENT (Dr. Rodriguez) - Hallpike testing was negative for BPPV and he was advised that his symptoms are not consistent with an inner ear etiology He was also sent for MRA of the head and neck, both of which came back negative He was advised that his symptoms are likely related to his kyphosis and age- related muscular atrophy and no other work ups are indicated or pertinent at this time Have also discussed with him that other than physical therapy, there is really not much else we can suggest in terms of intervention Fall precautions reinforced (5) Washington's esophagus with dysplasia: Code(s): K22.719 - Washington's esophagus with dysplasia, unspecified Category: Medical Plan: This was seen on EGD last done on 02/11/2022 (was previously also done on 05/20/2018) - Bx still showed (+) Washington's esophagus with no dysplasia Will need repeat EGD again this year (in 3 years) for follow up - states that he is scheduled to see Dr. Bailey soon for this Continue Omeprazole 20 mg BID (6) Kyphoscoliosis: Code(s): M41.9 - Scoliosis, unspecified Category: Medical Plan: Patient's kyphoscoliosis has been progressing over the past few years He has been advised that if this continues to get worse, it can significantly impact his overall lung volume and affect his breathing Chest x-rays in August 2021 revealed (+) thoracic kyphosis with degenerative changes in the spine. Otherwise, no significant abnormality is noted involving the heart, lungs, mediastinum, bony thorax or soft tissues Repeat chest x-rays in June 2022 also came out normal Discussed that we are not exactly sure why his kyphoscoliosis has been progressing lately but he does NOT appear to have any of the more common causes of kyphoscoliosis, including neurofibromatosis, ankylosing spondylitis, Pott's disease, paralytic poliomyelitis, Marfan syndrome and the mucopolysaccharidoses As he did not seem to have had this when he was younger, this technically rules out heredity as a cause and his problem may be more of an acquired condition due to years of poor posture (postural kyphosis) and the only recommendation we can give him at this time is to try to make a more conscious effort to sit or stand up straight as much as he can all the time (7) Anemia: Code(s): D64.9 - Anemia, unspecified Category: Medical Qualifiers: Anemia type: unspecified type Qualified Code(s): D64.9 - Anemia, unspecified Plan: His anemia is mostly mild and his iron indices have been normal He has eosinophilia at times, possibly due to allergies, but with his anxiety disorder, he requested to have this checked out further and states that it is for his own peace of mind Hgb electrophoresis done back in April 2023 came out NORMAL (8) Vitamin D deficiency: Code(s): E55.9 - Vitamin D deficiency, unspecified Category: Medical Plan: Continue Vitamin D3 1000 units QD (9) Branch retinal vein occlusion: Code(s): H34.8392 - Tributary (branch) retinal vein occlusion, unspecified eye, stable Category: Medical Qualifiers: Retinal vein occlusion complication status: with macular edema Laterality: left Qualified Code(s): H34.8320 - Tributary (branch) retinal vein occlusion, left eye, with macular edema Plan: Will refer patient back to his retina specialist for further evaluation and management (10) Keratosis: Code(s): L57.0 - Actinic keratosis Category: Medical Plan: Will refer patient to dermatology for his annual skin exam (11) Onycholysis of toenail: Code(s): L60.1 - Onycholysis Category: Medical Plan: Per request, will refer patient to podiatry for further management Plan Follow up in 6 months Orders: Orders Complete Blood Count Auto Diff 6 Months D64.9 - Anemia, unspecified, Z00.00 - Encounter for general adult medical examination without abnormal findings Comprehensive [place]. Panel Fast 6 Months E78.00 - Pure hypercholesterolemia, unspecified, Z00.00 - Encounter for general adult medical examination without abnormal findings Lipid Panel 6 Months E78.00 - Pure hypercholesterolemia, unspecified, Z00.00 - Encounter for general adult medical examination without abnormal findings TSH reflex Free T4 6 Months E78.00 - Pure hypercholesterolemia, unspecified, Z00.00 - Encounter for general adult medical examination without abnormal findings UA CC w/rflx Micro + Cult 6 Months R30.0 - Dysuria, Z00.00 - Encounter for general adult medical examination without abnormal findings Referrals Dermatology Referral L57.0 - Actinic keratosis, Z12.83 - Encounter for screening for malignant neoplasm of skin Ophthalmology Referral H34.8392 - Tributary (branch) retinal vein occlusion, unspecified eye, stable Podiatry Referral L60.1 - Onycholysis Medications: Refilled amlodipine 10 mg PO DAILY 90 days 90 tabs 3RF lisinopril 40 mg PO DAILY 90 days 90 tabs 3RF omeprazole 20 mg PO DAILY 90 days 90 caps 3RF
--- OUTSIDE RECORDS SUMMARY | 2024-08-23 15:07 | XMS_ITS | Patient Health Record ---
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 term care phlebotomist (curre nt) use of aspirin (Z79.82) Active confirmed Problem 676177721 Gastroesophageal reflux disease without esophagitis (K21.9) Active confirmed Problem Benign neoplasm of stomach (00409217) Gastric polyps (K31.7) Active confirmed Problem [place] esophagus (946350642) [place] esophagus (K22.70) Active confirmed Problem [place] (77433174) Schatzki's ring (K22.2) Active confirmed Plan Of Treatment Future Test Test Name Order Date COLONOSCOPY 10/28/2016 UPPER GI ENDOSCOPY 02/03/2018 UPPER GI ENDOSCOPY 01/01/2022 Insurance Providers Payer Name Payer Address Payer Phone Subscriber Number Group Number Insured Name Patient Relationship to Insured Coverage Start Date Coverage End Date [employer] [address] [place] [phone] [id number] DRAKE RODRIGUEZ Self - patient is the insured Medical (General) History Medical History History ICD Code elevated cholesterol gastroesophageal reflux dise ase, EGD 05/21, focal intestinal metaplasia, repeat EGD 2 years hypertension Colonoscopy 02/19/17, normal, ten-year f ollowup Retinal vein branch occlusion left eye Surgical History Surgery Date(Month/Year) appendectomy partial colectomy after complicated appe ndicitis
--- OUTSIDE RECORDS SUMMARY | 2024-08-23 15:07 | XMS_ITS ---
[facility] [place] Address [address] [place] [address] Care Team Providers Care Food Service Technician Name Role Phone Elmer NAVA, [place] Primary Care Provider Niels Wallis Unavailable [phone] Allergies No Known Allergies REASON FOR VISIT [...] morning meal Orally Once a day Active [place] 3 Active Lisinopril 40 MG 1 tablet [...] Ordered Date Performed Result Body Sit e 51904-BHLLHIF NAIL, 6 OR MORE 10/27/2023 N/A 92152-FPGC SKIN LESIONS, OVER 4 10/27/2023 N/A Encounters Encounter Location Date Provider Diagnosis [facility] [address] [place] [phone] 10/27/2023 Niels James Atherosclerosis of [place]isp[place] artery of both lower extremities, with unspecified presence of clinical manifestation I70.203 ; Tinea unguium B35.1 ; Pain in right toe(s) M79.674 ; Pain in left toe(s) M79.675 and Xerosis of skin L85.3 Assessments Encounter Date Diagnosis (ICD Code) Assessment Notes Treatment Notes Treatment Clinical Notes Section Notes 10/27/2023 Atherosclerosis of [place] artery of both lower extremities, with unspecified [...] days Pending Test Test Name Order Date 37487-SHEUGKZ NAIL, 6 OR MORE 10/27/2023 40507-DTHF SKIN LESIONS, OVER 4 10/27/19 24 Next Appt Details Follow Up: prn, Reason: Provider Name:Niels Sayra James , 10/04/2024 11:30:00 AM, [address] [facility], [place] [address], [place], [phone], Procedure Notes * Category Sub-Category Detail Notes [...] as necessary. Patient chooses, no pharmaceutical tx (19942) Keratoma Treatment Parring or Cutting o f Benign Hyperkeratotic Lesion(s) 94546 ( More than 4 Lesions ) - The Benign hyperkeratotic lesions, as described above were pared, and/or cut utilizing a sterile 15 blade, tissue nippers, and/or dremel , Q8 Progress Notes * ÓSCARSANJIV Ender SierraDOB:1950 (73 yo M)Acc No.[id number]:10/27/2023 Progress Note Patient:?Yan RODRIGUEZn Mariela Provider:?Niels James DPM :1950???Age:73 Y???Sex:Male Chris e:10/27/2023 Address:[address] [place], [place] [phone] Pcp:Jones Payne MD Subjective: * Chief Complaints: [...] ?Marital status: single. 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 * Medications:?TakingamLODIPin e Besylate 10 MG Tablet 1 tablet Orally Once a day Aspir-81 Lisinopril 40 MG Tablet 1 tablet Orally Once a day [place] 3 Omeprazole 20 MG Capsule Delayed Release [...] 1 tablet Orally Once a day Taking [place] 3 Taking Omeprazole 20 MG Capsule Delayed [...] Assessment: 1.?Tinea unguium - B35.1???2 .?Atherosclerosis of k[place]ispel artery of both lower extremities, with unspecified presence of clinical manifestation - I70.203???3.?Pain in right toe(s) - M79.674???4.?Pain in left toe(s) - M79.675?? 5.?Xerosis of skin - L85.3???Specify :Acute problem, Uncomplicated (3),Rx Management (4)??? Plan: * Treatment: 2.?Atherosclerosis of k[place]isp[place] artery of both lower extremities, with unspecified presence of clinical manifestation?Procedure: 19789-RJCM SKIN LESIONS, OVER 4 3.?Xerosis of skin? [...] as necessary. Patient chooses, no pharmaceutical tx (37852).?Keratoma Treatment:?Parring or Cutting of Benign Hyperkeratotic Lesion(s)?85186 ( More than 4 Lesions ) - The Benign hyperkeratotic lesions, as described above were pared, and/or cut utilizing a sterile 15 blade, tissue nippers, and/or dremel , Q8.? * Procedure Codes:?48282 DEBRI DE NAIL, 6 OR MORE, Modifiers: XS 82074 TRIM SKIN LESIONS, OVER 4, Modifiers: XS [...] James DPM Date:?2023 Generated for Carlitos jacobson/Isidoro/Lam on:?08/23/2024 03:07 PM EDT History and Physical Notes * [...]
--- OUTSIDE RECORDS SUMMARY | 2024-08-23 15:07 | XMS_ITS ---
Author Organization [facility] jarvis [place]ubl[place] Address [address] [place] [address] Care Team Providers Care Video Game Developer Name Role Phone Elmer NAVA, Calvin Primary Care Provider Niels Wallis Unavailable [phone] Allergies No Known Allergies REASON FOR VISIT At Risk Footcare, Painful Nail(s) aggrevated by shoes and causing difficulty standing/walking., Ingrown Nail Medications Medication SIG (Take, Route, Frequency, Duration) Notes Start Date End Date Status [place] 3 Active Lisinopril 40 MG 1 tablet [...] Notes Tobacco use: Nonsmoker Vital Signs Height 0qe44ia in 05/10/2024 Weight 155 lbs 05/10/2024 BMI 22.24 kg/m2 05/10/2024 Blood pressure systolic 120 mm Hg 05/10/19 25 Blood pressure diastolic 70 mm Hg 025 Procedures Procedure Date Ordered Date Performed Result Body Sit e 75536-DGZJTWS NAIL, 6 OR MORE 05/10/2024 N/A 57610-Ktmuycwp Plate 05/10/2024 N/A 54146-TWGX SKIN LESIONS, OVER 4 05/10/2024 N/A Encounters Encounter Location Date Provider Diagnosis [facility] [place] [address] [place] [address] 05/10/2024 Niels James Atherosclerosis of sycuan artery of both lower extremities, with unspecified presence of clinical manifestation I70.203 ; Tinea unguium B35.1 ; Pain in right toe(s) M79.674 ; Pain in left toe(s) M79.675 and Ingrown nail L60.0 Assessments Encounter Date Diagnosis (ICD Code) Assessment Notes Treatment Notes Treatment Clinical Notes Section Notes 05/10/2024 Atherosclerosis of sycuan artery of both lower extremities, with unspecified presence of clinical manifestation (ICD-10 - I70.203) 05/10/2024 Tinea unguium (ICD-10 - B35.1) 05/10/2024 Pain in right toe(s) (ICD-10 - M79.674) 05/10/2024 Pain in left toe(s) (ICD-10 - M79.675) 05/10/2024 Ingrown nail (ICD-10 - L60.0) Plan Of Treatment Pending Test Test Name Order Date 65824-NHUTKSH NAIL, 6 OR MORE 05/10/2024 21862-Fpibnasf Plate 05/10/2024 14973-UXCM SKIN LESIONS, OVER 4 05/10/19 25 Next Appt Details Follow Up: prn, Reason: Provider Name:Niels James , 10/04/2024 11:30:00 AM, [address] [facility], [place] [address], [place], [address], Procedure Notes * Category Sub-Category Detail Notes [...] Motrin was recommended for pain or discomfort (58285), CIRCULATION: Pt was advised as to the [...] use of a nail nipper and/or dremel-type rubber grinder, to a more viable healthy nail [...] to maintain effectiveness in symptomatic relief - 49425 Keratoma Treatment Parring or Cutting o f [...] instrumentation by the physician of record - 48512, Q8 Progress Notes * Ender RODRIGUEZDOB:1950 (73 yo M)Acc No.[id number]:05/10/2024 Progress Note Patient:?Ender RODRIGUEZ Provider:?Niels James DPM :1950???Age:73 Y???Sex:Male Chris e:05/10/2024 Address:[address] [place], [place] [address] Pcp:Jones Payne MD Subjective: * Chief Complaints: [...] Tablet 1 tablet Orally Once a day [place] 3 Omeprazole 20 MG Capsule Delayed Release [...] 1 tablet Orally Once a day Taking [place] 3 Taking Omeprazole 20 MG Capsule Delayed [...] * Allergies:?N.K.D.A.yes[Aller gies Verified] Objective: * Vitals:?Ht: 9dn36zb, Wt:155, BMI:22.24, Shoe size: 11, BP:120/70mm Hg, [...] Assessment: 1.?Tinea unguium - B35.1???2 .?Atherosclerosis of sycuan artery of both lower extremities, with unspecified presence of clinical manifestation - I70.203 (Primary)???3.?Pain in right toe(s) - M79.674???4.?Pain in left toe(s) - M79.675 ??5.?Ingrown nail - L60.0???Specify :?Lateral nail border,?TA??? Plan: * Treatment: 2.?Tinea unguium?Procedure: 66217-FNZPSBP NAIL, 6 OR MORE 3.?Ingrown nail?Procedure: 89869-Luiwmmaa Plate * Procedures:?Debride Nail 6-10:?Nail debridement?Due to [...] use of a nail nipper and/or dremel-type rubber grinder, to a more viable healthy nail [...] to maintain effectiveness in symptomatic relief - 76482.?Keratoma Treatment:?Parring or Cutting of Benign Hyperkeratotic Lesion(s)?(-57) [...] instrumentation by the physician of record - 00216, Q8.?Nail Avulsion:?Location?Lateral nail border,?TA.?Anesthesia?was accomplished TOPICALLY with [...] Motrin was recommended for pain or discomfort (93900), CIRCULATION: Pt was advised as to the risk of delayed or nonhealing due to circulation. Pt is to call the office with any questions, concerns, or complications.? * Procedure Codes:?63432 DEBRI DE NAIL, 6 OR MORE, Modifiers: XS 94958 Avulsion Plate, Modifiers: XS , AS78012 TRIM SKIN LESIONS, OVER 4, Modifiers: XS , Q8 * Follow Up:?prn * Images: * Sign off status: Completed true * Provider:?Niels James DPM Date:?2024 Generated for Carlitos jacobson/Isidoro/eTransmitting on:?08/23/2024 03:07 PM EDT History and Physical [...]
--- OUTSIDE RECORDS SUMMARY | 2024-08-23 15:08 | XMS_ITS | Patient Health Record ---
[facility] Address [address] [place] [address] Care Team Providers Care Chief Operating Engineer Name Role Phone Elmer NAVA, Kenvil Primary Care Provider Niels Wallis Unavailable [phone] Allergies No Known Allergies Reason For Referral No Information Medications Medication SIG (Take, Route, Frequency, Duration) Notes Start Date End Date Status [place] 3 Active Lisinopril 40 MG 1 tablet [...] W/U Status Risk Notes Problem Atherosclerosis of [place]dy arteries of the extremities (485102859186669) Atherosclerosis of [place] artery of both lower extremities, with unspecified presence of clinical manifestation (I70.203) Active confirmed Vital Signs Blood pressure diastolic 70 mm Hg 05/10/2024 Height 9pc38vd in 05/10/2024 Blood pressure systolic 120 mm Hg 05/10/2024 Weight 155 lbs 05/10/2024 BMI 22.24 kg/m2 05/10/2024 Procedures Procedure Date Ordered Date Performed Result Body Sit e 34426-XAPCBKK NAIL, 6 OR MORE 10/27/2023 N/A 23114-CJUS SKIN LESIONS, OVER 4 10/27/2023 N/A 71228-GILNAFJ NAIL, 6 OR MORE 01/19/2024 N/A 31428-BJFX SKIN LESIONS, OVER 4 01/19/2024 N/A 69573-QGFAPYE NAIL, 6 OR MORE 05/10/2024 N/A 56818-Dmgmtvxh Plate 05/10/2024 N/A 77846-GQMZ SKIN LESIONS, OVER 4 05/10/2024 N/A Encounters Encounter Location Date Provider Diagnosis [address] [address] 10/27/2023 Niels James Atherosclerosis of [place] artery of both lower extremities, with unspecified presence of clinical manifestation I70.203 ; Tinea unguium B35.1 ; Pain in right toe(s) M79.674 ; Pain in left toe(s) M79.675 and Xerosis of skin L85.[address] [address] 01/19/2024 Niels James Atherosclerosis of [place] artery of both lower extremities, with unspecified presence of clinical manifestation I70.203 ; Tinea unguium B35.1 ; Pain in right toe(s) M79.674 ; Pain in left toe(s) M79.675 and Xerosis of skin L85.[address] [address] 05/10/2024 Nielstamera CollazoJacob Atherosclerosis of [place] artery of both lower extremities, with unspecified presence of clinical manifestation I70.203 ; Tinea unguium B35.1 ; Pain in right toe(s) M79.674 ; Pain in left toe(s) M79.675 and Ingrown nail L60.0 Assessments Encounter Date Diagnosis (ICD Code) Assessment Notes Treatment Notes Treatment Clinical Notes Section Notes 10/27/2023 Tinea unguium (ICD-10 - B35.1) 10/27/2023 Atherosclerosis of [place] artery of both lower extremities, with unspecified presence of clinical manifestation (ICD-10 - I70.203) 01/19/2024 Tinea unguium (ICD-10 - B35.1) 01/19/2024 Atherosclerosis of [place] artery of both lower extremities, with unspecified presence of clinical manifestation (ICD-10 - I70.203) 05/10/2024 Tinea unguium (ICD-10 - B35.1) 05/10/2024 Atherosclerosis of [place] artery of both lower extremities, with unspecified [...] skin (ICD-10 - L85.3) Plan Of Treatment Pending Test Test Name Order Date 23473-DZXSRNE NAIL, 6 OR MORE 08/18/2023 66635-XXGRDYA NAIL, 6 OR MORE 10/27/2023 85866-RTJYCXQ NAIL, 6 OR MORE 01/19/2024 84035-ISMASJE NAIL, 6 OR MORE 05/10/2024 23913-Jerwmxec Plate 05/10/2024 20672-VCSG SKIN LESIONS, OVER 4 05/10/19 25 03306-YFJV SKIN LESIONS, OVER 4 01/19/20 24 00290-ORZC SKIN LESIONS, OVER 4 10/27/19 24 27706-JESP SKIN LESIONS, OVER 4 08/18/19 24 Next Appt Details Provider Name:Niels James , 10/04/2024 11:30:00 AM, [address] [facility], [address], [place], [address], Insurance Providers Payer Name Payer Address Payer Phone Subscriber Number Group Number Insured Name Patient Relationship to Insured Coverage Start Date Coverage End Date [facility] [address] [place] [phone] [id number] Ender Castellanos Self - patient is the insured Medical (General) History Medical History History ICD Code Barretts esophagus Hypertension, benign Reflux ( GERD) Hypercholesterolemia Vitamin D deficiency eosinophilia kyphoscoliosis Cataracts Anxiety CAD Surgical History Surgery Date(Month/Year) colonoscopy appendectomy 1978 EGD
--- OUTSIDE RECORDS SUMMARY | 2024-08-23 15:08 | XMS_ITS ---
Author Organization [facility] [place] Address [address] [place] [address] Care Team Providers Care Electric Meter Technician Name Role Phone Elmer NAVA, [place] Primary Care Provider Niels Wallis Unavailable [phone] Allergies No Known Allergies REASON FOR VISIT [...] morning meal Orally Once a day Active [place] 3 Active Multivitamin Active Atorvastatin Calcium 20 [...] Ordered Date Performed Result Body Sit e 12028-YVANBFU NAIL, 6 OR MORE 01/19/2024 N/A 82688-NWYA SKIN LESIONS, OVER 4 01/19/2024 N/A Encounters Encounter Location Date Provider Diagnosis [facility] [place] [address] [place] [address] 01/19/2024 Nielstamera Beardier Atherosclerosis of [place] artery of both lower extremities, with unspecified presence of clinical manifestation I70.203 ; Tinea unguium B35.1 ; Pain in right toe(s) M79.674 ; Pain in left toe(s) M79.675 and Xerosis of skin L85.3 Assessments Encounter Date Diagnosis (ICD Code) Assessment Notes Treatment Notes Treatment Clinical Notes Section Notes 01/19/2024 Atherosclerosis of [place] artery of both lower extremities, with unspecified [...] days Pending Test Test Name Order Date 41628-VPTSLZV NAIL, 6 OR MORE 01/19/2024 70767-VIGY SKIN LESIONS, OVER 4 01/19/20 24 Next Appt Details Follow Up: prn, Reason: Provider Name:Niels James , 10/04/2024 11:30:00 AM, [address] [facility], [place] [address], [place], [address], Procedure Notes * Category Sub-Category Detail Notes Debride Nail 6-10 Nail debridement Performance o f this nail treatment by a nonprofessional would put this patients foot and overall health at risk. Therefore, nail debridement was performed extensively to reduce/remove overall nail length, girth, thickness, subungual debris, and necrotic tissue, by manual and/or electrical means through the use of a nail nipper and/or dremel-type meal grinder tender, to a more viable healthy nail plate or bed tissue 6-10. Silver nitrate used for any petechial bleeding as necessary. Definitive antifungal treatment options have been reviewed and discussed with the patient. The patient chooses, no pharmaceutical tx - 89586 Keratoma Treatment Parring or Cutting o f Benign Hyperkeratotic Lesion(s) (-57) More than 4 Lesions - The Benign hyperkeratotic lesions, as described above were pared, and/or cut utilizing a sterile 15 blade, tissue nippers, and/or dremel - 23152 , Q8 Progress Notes * Ender RODRIGUEZDOB:1950 (73 yo M)Acc No.[id number]:01/19/2024 Progress Note Patient:?ÓSCARSANJIV Ender Sierra Provider:?Niels James DPM :1950???Age:73 Y???Sex:Male Chris e:01/19/2024 Address:[address] [place], [place] [address] Pcp:Jones Payne MD Subjective: * Chief Complaints: [...] ?Marital status: single. 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 * Medications:?TakingamLODIPin e Besylate 10 MG Tablet 1 tablet Orally Once a day Aspir-81 Lisinopril 40 MG Tablet 1 tablet Orally Once a day [place] 3 Omeprazole 20 MG Capsule Delayed Release [...] 1 tablet Orally Once a day Taking [place] 3 Taking Omeprazole 20 MG Capsule Delayed [...] Assessment: 1.?Tinea unguium - B35.1???2 .?Atherosclerosis of [place] artery of both lower extremities, with unspecified presence of clinical manifestation - I70.203???3.?Pain in right toe(s) - M79.674???4.?Pain in left toe(s) - M79.675?? 5.?Xerosis of skin - L85.3???Specify :Acute problem, Uncomplicated (3),Rx Management (4),Response to treatment - Unchanged,Nonadherent to recommendations??? Plan: * Treatment: 2.?Atherosclerosis of [place] artery of both lower extremities, with unspecified presence of clinical manifestation?Procedure: 46470-ZASK SKIN LESIONS, OVER 4 3.?Xerosis of skin? [...] use of a nail nipper and/or dremel-type meal grinder tender, to a more viable healthy nail plate or bed tissue 6-10. Silver nitrate used for any petechial bleeding as necessary. Definitive antifungal treatment options have been reviewed and discussed with the patient. The patient chooses, no pharmaceutical tx - 33077.?Keratoma Treatment:?Parring or Cutting of Benign Hyperkeratotic Lesion(s)?(-57) More than 4 Lesions - The Benign hyperkeratotic lesions, as described above were pared, and/or cut utilizing a sterile 15 blade, tissue nippers, and/or dremel - 24913 , Q8.? * Procedure Codes:?44719 DEBRI DE NAIL, 6 OR MORE, Modifiers: XS 83898 TRIM SKIN LESIONS, OVER 4, Modifiers: XS [...]
== END 2024-08-23 13:49 | disposition home or self-care (01) ==
LOC: HO.HMCH 12:51
PROVIDERS: PCP Internal Medicine; Visit Provider Internal Medicine
DX: Z00.00 Encounter for general adult medical examination without abnormal findings (principal); I10 Essential (primary) hypertension; E78.00 Pure hypercholesterolemia, unspecified; R42 Dizziness and giddiness; K22.719 Barrett's esophagus with dysplasia, unspecified; M41.9 Scoliosis, unspecified; D64.9 Anemia, unspecified; E55.9 Vitamin D deficiency, unspecified; H34.8320 Tributary (branch) retinal vein occlusion, left eye, with macular edema; L57.0 Actinic keratosis; L60.1 Onycholysis

== ENCOUNTER → 2024-08-23 12:50 | Outpatient (BNVA) | payer MEDICARE, SELFPAY | PROVIDERS: PCP Internal Medicine; Visit Provider Internal Medicine | DX: Z00.01 Encounter for general adult medical examination with abnormal findings (principal); I10 Essential (primary) hypertension; E78.00 Pure hypercholesterolemia, unspecified; R42 Dizziness and giddiness; K22.719 Barrett's esophagus with dysplasia, unspecified; M41.9 Scoliosis, unspecified; D64.9 Anemia, unspecified; E55.9 Vitamin D deficiency, unspecified; H34.8320 Tributary (branch) retinal vein occlusion, left eye, with macular edema; L57.0 Actinic keratosis; L60.1 Onycholysis | CPT/HCPCS: 96127; 99397; 99497 ==

== ENCOUNTER 2025-02-14 13:22 | Outpatient (REF) | payer MEDICARE, SELFPAY ==
[2025-02-14 16:15] LABS: MANUAL DIFF FLAG NO
[2025-02-14 16:15] LABS: Appearance Urine Clear; Glucose Urine UA Negative (Negative); PH 5.5 (5.0-9.0); Specific Gravity - Urine 1.015 (1.005-1.025)
[2025-02-14 16:21] LABS: Hematocrit 42.6 % (42.0-52.0); Hemoglobin 13.9 g/dl (14.0-18.0); Imm Gran Abs Auto 0.02 X10*3/uL (0.00-0.03); Imm Gran Pct Auto 0.3 % (0.0-0.4); Lymphocytes Absolute Auto 1.4 X10*3/uL (1.2-4.9); Mean Corpuscular HGB Conc 32.6 g/dl (31.0-36.0); Mean Corpuscular Hemoglobin 29.6 pg (27.0-33.0); Mean Corpuscular Volume 90.6 fL (80.0-98.0); NRBC Abs Auto 0.000 X10*3/uL (0.0-0.012); NRBC Pct Auto 0.0 /100WBC (0.0-0.2); Platelet Count 334 X10*3/uL (160-400); Red Blood Count 4.70 X10*6/uL (4.60-5.80); White Blood Count 6.2 X10*3/uL (4.8-10.8)
[2025-02-14 16:49] LABS: Alanine Aminotransferase 23 U/L (0-40); Albumin Level 4.3 g/dL (3.5-5.0); Alkaline Phosphatase 78 U/L (39-117); Anion Gap 10 (12-20); Aspartate Amino Transferase 23 U/L (5-37); Blood Urea Nitrogen 18 mg/dL (9-16); Calcium 9.1 mg/dL (8.4-10.2); Carbon Dioxide 25 mmol/L (22-29); Chloride 110 mmol/L (96-108); Cholesterol 159 mg/dL (<200); Estimated Glomerular Filt Rate > 60; HDL Cholesterol 55 mg/dL (>40); Potassium 4.3 mmol/L (3.3-5.1); Sodium 141 mmol/L (135-145); Total Protein 7.0 g/dL (6.5-8.0); Triglycerides 56 mg/dL (<150)
--- OUTSIDE RECORDS SUMMARY | 2025-02-14 17:00 | XMS_ITS | Patient Health Record ---
Author Organization [facility] Nay[facility]vis [place] Address [address] [place] [address] Care Team Providers Care Metal Drilling Machine Operator Name Role Phone Jones Payne MD Primary Care Provider Niels Wallis Unavailable [phone] Allergies No Known Allergies Reason For Referral Diagnosis 1 Atherosclerosis of n ative artery of both lower extremities, with unspecified presence of clinical manifestation (I70.203) Diagnosis 2 Tinea unguium (B35.1 ) Diagnosis 3 Pain in left toe(s) (M79.675) Diagnosis 4 Pain in right toe(s) (M79.674) Diagnosis 5 Xerosis of skin (L85 .3) Diagnosis 6 Ingrown nail (L60.0) Diagnosis 7 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, left (M19.072) Diagnosis 8 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, right (M19.071) Diagnosis 9 Other hammer toe(s) (acquired), right foot (M20.41) Diagnosis 10 Other hammer toe(s) (acquired), left foot (M20.42) Referring Provider First Name Jones Referring Provider Last Name Elmer [facility] Referred Provider Niels James Referred Address [address] [facility],[place],[address], Referred Provider Specialty Podiatry Referral Priority Routine Medications Medication SIG (Take, Route, Frequency, Duration) Notes Start Date End Date Status Lisinopril 40 MG 1 tablet Orally Once a day; Duration: 30 day(s) Active [place] 3 Active -81 Active Atorvastatin Calcium 20 MG 1 tablet Orally Once a day; Duration: 30 day(s) Not-Taking amLODIPine Besylate 10 MG 1 tablet Orall y Once a day; Duration: 30 day(s) Active Multivitamin Active Ammonium Lactate 12 % 1 application Externally Twice a day; Duration: 30 days Active traZODone HCl 50 MG 1 tablet at bedtime as needed Orally Once a day Active Vitamin D Active Omeprazole 20 MG 1 capsule 30 minutes before morning meal Orally Once a day Active Rosuvastatin Calcium [...] (Standard) Question Answer Notes Tobacco use: Nonsmoker Additional Findings: Tobacco non-user Current no nsmoker Problems Problem Type SNOMED Code ICD Code Onset Dates Problem Status W/U Status Risk Notes Problem Bilateral atherosclerosis of arteries of lower limbs (disorder) (05453409342731520 ) Atherosclerosis of [place] artery of both lower extremities, with unspecified presence of clinical manifestation (I70.203) Active confirmed Vital Signs Blood pressure diastolic 70 mm Hg 05/10/2024 Height 5ft 10in in 10/04/2024 Blood pressure systolic 120 mm Hg 05/10/2024 Weight 153 lbs 10/04/2024 BMI 21.95 kg/m2 10/04/2024 Procedures Procedure Date Ordered Date Performed Result Body Sit e 50564-HSGIAKT NAIL, 6 OR MORE 05/10/2024 N/A 45795-Gneqpuhs Plate 05/10/2024 N/A 33446-VJBN SKIN LESIONS, OVER 4 05/10/2024 N/A 28352-LDBWGEL NAIL, 6 OR MORE 10/04/2024 N/A 35842-KEXA SKIN LESIONS, OVER 4 10/04/2024 N/A Encounters Encounter Location Date Provider Diagnosis [facility] [address] [address] 05/10/2024 Niels James Atherosclerosis of [place] artery of both lower extremities, with unspecified presence of clinical manifestation I70.203 ; Tinea unguium B35.1 ; Pain in right toe(s) M79.674 ; Pain in left toe(s) M79.675 and Ingrown nail L60.0 [facility] [place] [address] [facility] [address] [place] [address] 10/04/2024 Niels James Atherosclerosis of [place] artery of both lower extremities, with unspecified presence of clinical manifestation I70.203 ; Tinea unguium B35.1 ; Pain in right toe(s) M79.674 and Pain in left toe(s) M79.675 Assessments Encounter Date Diagnosis (ICD Code) Assessment Notes Treatment Notes Treatment Clinical Notes Section Notes 05/10/2024 Tinea unguium (ICD-10 - B35.1) 05/10/2024 Atherosclerosis of [place] artery of both lower extremities, with unspecified presence of clinical manifestation (ICD-10 - I70.203) 10/04/2024 Tinea unguium (ICD-10 - B35.1) 10/04/2024 Atherosclerosis of [place] artery of both lower extremities, with unspecified presence of clinical manifestation (ICD-10 - I70.203) 10/04/2024 Pain in right toe(s) (ICD-10 - M79.674) 05/10/2024 Pain in right toe(s) (ICD-10 - M79.674) 05/10/2024 Pain in left toe(s) (ICD-10 - M79.675) 10/04/2024 Pain in left toe(s) (ICD-10 - M79.675) 05/10/2024 Ingrown nail (ICD-10 - L60.0) Plan Of Treatment Pending Test Test Name Order Date 17661-QXUHQFY NAIL, 6 OR MORE 08/18/2023 85820-QWPMMVE NAIL, 6 OR MORE 10/27/2023 46401-NWESJDU NAIL, 6 OR MORE 01/19/2024 83349-NYCAYVS NAIL, 6 OR MORE 05/10/2024 14247-SZYJWMC NAIL, 6 OR MORE 10/04/2024 94615-Wmdsnqlc Plate 05/10/2024 49954-ALFK SKIN LESIONS, OVER 4 10/05/19 25 68143-LNCT SKIN LESIONS, OVER 4 05/10/19 25 97264-PHQF SKIN LESIONS, OVER 4 01/19/20 24 43954-AZNL SKIN LESIONS, OVER 4 10/27/19 24 51439-NEFS SKIN LESIONS, OVER 4 08/18/19 24 Next Appt Details Provider Name:Niels James , 04/11/2025 11:30:00 AM, [address] [facility], [address], [place], [address], Insurance Providers Payer Name Payer Address Payer Phone Subscriber Number Group Number Insured Name Patient Relationship to Insured Coverage Start Date Coverage End Date [facility] [address] [place] [phone] [id number] Ender Castellanos Self - patient is the insured Medical (General) History Medical History History ICD Code Barretts esophagus Hypertension, benign Reflux ( GERD) Hypercholesterolemia Vitamin D deficiency eosinophilia kyphoscoliosis Cataracts Anxiety CAD Surgical History Surgery Date(Month/Year) colonoscopy appendectomy 1978 EGD
--- OUTSIDE RECORDS SUMMARY | 2025-02-14 17:00 | XMS_ITS | Patient Health Record ---
Author Organization [facility] Address [address] [place] [address] Care Team Providers Care In School Suspension Aide Name Role Phone Elmer NAVA, Jones Primary Care Provider Eduard Adkins Jr Unavailable [phone] Allergies No Known Allergies Reason For Referral [...] Problem Status W/U Status Risk Notes Problem Colon cancer screening (061511442) Colon cancer screening (Z12.11) Active confirmed Problem [place]'s esophagus (696520808) Washington's esophagus without dysplasia (K22.70) Active confirmed Problem Long-term current use of antiplatelet drug (629309795568219) 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 (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.82) Active confirmed Problem Gastroesophageal reflux disease without esophagitis (606352419) Gastroesophageal reflux disease without esophagitis (K21.9) Active confirmed Problem Benign neoplasm of stomach (96800166) Gastric polyps (K31.7) Active confirmed Problem [place] esophagus (655257669) [place] esophagus (K22.70) Active confirmed Problem Schatzki's ring (99556416) Schatzki's ring (K22.2) Active confirmed Plan Of Treatment Future Test Test Name Order Date COLONOSCOPY 10/28/2016 UPPER GI ENDOSCOPY 02/03/2018 UPPER GI ENDOSCOPY 01/01/2022 Insurance Providers Payer Name Payer Address Payer Phone Subscriber Number Group Number Insured Name Patient Relationship to Insured Coverage Start Date Coverage End Date [employer] [address] [place] [phone] [id number] DRAKE RODRIGUEZ Self - patient is the insured Medical (General) History Medical History History ICD Code elevated cholesterol gastroesophageal reflux dise ase, EGD 05/21, focal intestinal metaplasia, repeat EGD 2 years hypertension Colonoscopy 02/19/17, normal, ten-year f ollowup Retinal vein branch occlusion left eye Surgical History Surgery Date(Month/Year) appendectomy partial colectomy after complicated appe ndicitis
--- OUTSIDE RECORDS SUMMARY | 2025-02-14 17:01 | XMS_ITS | Data Portability ---
Author Organization [place] - [facility], Allergy Address [address] [address] Care Team Providers Care Interior Assemblies Developer Prover Name Role Phone JOSE C PHILLIPS Primary Care Provider Assessment No assessment recorded. Plan of Treatment Reminders Order Date Submit Date Provider Last Modified By Organization Details Last Modified Time Details Appointments None recorded. Lab None recorded. Referral None recorded. Procedures None recorded. Surgeries None recorded. Imaging MR, angiogram, head + neck, w/wo contrast - [id number] brain no contrast [id number] MRA neck with contrast 2023 024 [facility] ([facility]), [address] [place], [address], 13:38:38 Medication Orders None recorded. Patient TargetsNo targets recorded. Patient InstructionsNo instructions recorded. Reason for Referral None Reported. Results Created Date Observation Date Name Description Value Unit Range Abnormal Flag Note LastModifiedBy Organization Detail LastModifiedTime 11/27/1911/26/2023 MR, angio gram, head + neck, w/wo contr ast No observ ation record ed. [address] (Medical Records) [address] [place], [address], 12/02/2023 09:18:32 11/27/19 24 11/26/2023 MR, angio gram, head + neck, w/wo contr ast No observ ation record ed. [address] (Medical Records) [address] [place], [address], 12/02/2023 09:18:32 12/21/19 24 09/23/2023 shiloi ng/brenda rawls tic resul t No observ ation record ed. [email or web address] Not Available 16:44:16 Result Notes None recorded. Problems Name Problem SNOMED Code Status Onset Date Resolution Date Notes Provider Name and Address Organization Details Recorded Time Sensorineural hearing loss of bilateral ears 380772893 Active 2023 JAMAL GABRIEL [address] [place] [address], [place], [address], [facility] - [facility] [place] 14:57:58 Dizziness and giddiness 117964824 Active 2023 IKE YOO MD [address] [place] [address], [place], [address], [facility] - [facility] [place] 16:27:26 Finding of general balance 446997099 Active 2023 IKE YOO MD [address] [place] [address], [place], [address], [facility] - [facility] 16:57:34 Problem Notes None recorded. Procedures Surgical History Date Name Laterality Status Provider Name and Address Organization Details Recorded Time 09/23/19 24 Comp Audio with Tymps - 70919 & 62266 completed JAMAL GABRIEL [address] [facility],[address], [address], [facility] - [facility] [place] 09/23/2023 14:57:44 Appendectomy completed Zenobia Aldrich [facility] [place] 09/23/2023 14:23:01 Imaging Results None recorded. Procedure Notes None recorded. Medical Equipment None Reported. Allergies No known drug allergies Medications Name Sig Start Date Stop Date Status Note LastModified by Organization Details LastModified Time amlodipine 10 mg tablet Take 1 tablet every day by oral route. active Not Available Not Available No t Available lisinopril 40 mg tablet Take 1 tablet every day by oral route. active Not Available Not Available No t Available Trazodone 50 mg tablet Take 1 tablet every day by oral route. active Not Available Not Available No t Available rosuvastatin 5 mg tablet Take 1 tablet every day by oral route. active Not Available Not Available No t Available multivitamin active Not Available Not Available Not Available Vitamin D3 125 mcg (5,000 unit) tablet Take by oral route. active Not Available Not Available No t Available Fish Oil 1,000 mg (120 mg-180 mg) capsule Take by oral route. active Not Available Not Available No t Available aspirin 81 mg capsule Take 1 capsule every day by oral route. active Not Available Not Available No t Available Vitals None Recorded Social History None recorded. Functional Status None recorded. Mental Status None recorded. Family History Nothing Reported. Medical History Condition Response Anemia Y Arthritis Y Anxiety Y Hypertension Y Depression Y Past Encounters Encounter ID Performer Location Encounter Start Date Encounter Closed Date Diagnosis/Indication Diagnosis SNOMED-CT Code Diagnosis ICD10 Code Diagnosis IMO Codes Diagnosis Note [id number] IKE YOO MD [facility] [address] [address] 09/23/2023 13:37:40 09/23/2023 16:40:53 Sensorineural hearing loss of bilateral ears 675324331 H90.3 Audiologic al evaluation results:Ri ght ear:Normal sloping at 6kHz to a mild SNHL with excellent speech discrimina tion.Left ear:Normal sloping at 6kHz to a mild SNHL with excellent speech discrimina tion. Tympanomet ry:Right Ear:Type ALeft Ear:Type APatient's audiogram shows bilateral mild bilateral sensorineu ral hearing loss with well maintained speech discrimina tion. There is not enough hearing loss to significan tly affect day-to-day hearing performanc e. I gave the patient reassuranc e that hearing aids are typically not recommende d for this degree of hearing loss. We did discuss that hearing loss can progress over time. We discussed the pathophysi ology of hearing loss and risk factors for progressio n including aging and noise exposure. Dizziness and giddiness 022238003 R42 Finding of general balance 919208183 R26.81 72-year-ol d male with chronic generalize d low-level dizziness and unsteadine ss on his feet, exacerbate d by visual deprivatio n. Hallpike testing negative for BPPV today. His symptoms are not consistent with an inner ear etiology. 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 I think he would benefit significan tly from vestibular rehabilita tion and I have provided a referral to [facility] for this.While he has had a very extensive workup thus far, he has not had evaluation of the cervical and brain vasculatur e to look for reduced flow. His symptoms of worse dizziness with extension of the neck may be related to narrowing of the vertebral arteries. We will arrange this for him and see him back for results over telehealth visit. Health Concerns Section Related Observation LastModified by Organization Detai ls LastModified Time None Recorded Concern Status LastModified by Organization Details LastModified Time None Recorded Advance Directives Directive None Recorded Payers Insurance Date Sequence Insurance Name Policy Number Policy Mehta Covered Member ID Mehta Member ID Guarantor Name 09/23/2023 1 [facility] Ender Castellanos [id number] Ender Castellanos 09/27/2023 1 [facility] [employer] [facility] [facility] (HMO) Ender Castellanos [id number] Ender Castellanos Notes Date Note Type Note Provider Name and Address Organization Details Recorded Time 09/23/2023 text/html Patient referred for evaluation of dizziness. His primary care physician initiated referral after workup including chest x-ray, echocardiogram, renal Doppler, carotid ultrasound and exercise stress perfusion study. He was seen by cardiology who recommended ENT evaluation to rule out vertigo . He was advised to split his blood pressure medication regimen between the morning and afternoon as well as reducing some of his blood pressure medication dosages.Patient reports symptoms have been going on for about a year. He has a very difficult time explaining his symptoms other than dizziness . He reports that symptoms are worsened if he closes his eyes such as when he is washing his face in the sink. He also notices when he looks up at the garcia, he feels more dizzy. Symptoms are worse when ambulatory, but even when he is sitting he feels a low-grade sensation of dizziness. He has not had any recent spinning vertigo. He does feel some lightheadedness upon standing up quickly. IKE YOO MD [address] [place] [address], [phone], [facility] - [facility] 09/23/2023 17:01:32
== END 2025-02-14 13:23 | disposition home or self-care (01) ==
LOC: HO.HMGCLDS 13:22
PROVIDERS: PCP Internal Medicine; Visit Provider Internal Medicine
DX: Z00.00 Encounter for general adult medical examination without abnormal findings (principal); D64.9 Anemia, unspecified; E78.00 Pure hypercholesterolemia, unspecified; R30.0 Dysuria
CPT/HCPCS: 36415; 80053; 80061; 81003; 84443; 85025

== ENCOUNTER 2025-02-21 11:01 | Outpatient (AMB) | payer MEDICARE, SELFPAY ==
[2025-02-21 11:23] VITALS: BP 130/60; PULSE 89; RESP 18; TEMP 36.3; O2SAT 94; BMI 21.4
--- NOTE | 2025-02-21 11:23 | MHC.PC.OV ---
Vital Signs 02/21/25 11:23 Height 5 ft 10 in Weight 149 lb 6 oz BMI 21.4 BP 130/60 Blood Pressure Location Lt brachial Position Standing Respiration 18 Pulse 89 Pulse Source Pulse Oximeter Temp 97.3 F Temp Source Temporal Artery Scan Pulse Oximetry (%) 94 Oxygen Delivery Method Room Air Intake Visit Reasons: HTN, hyperlipidemia, GERD Registered Dietetic Technician Required: No Accompanied by: Self / Same As Patient Allergies No Known Allergies Allergy (Verified 02/21/25 11:39) Medication List - Last Reconciled 02/21/25 by Jones Payne MD aspirin 81 mg PO DAILY lisinopril 40 mg PO DAILY 90 days multivitamin 1 tab PO DAILY omega [id number]-ktq-tmj-fish oil 1,200 (144-216) mg (Fish Oil) 1 cap PO DAILY omeprazole 20 mg PO DAILY 90 days rosuvastatin 5 mg PO DAILY 90 days trazodone 75 mg (1.5 x 50 mg) PO BEDTIME PRN 90 days Tobacco use date assessed: 02/21/25 Fall risk assessment: No Falls in past year Last assessed Fall Risk: 02/21/25 Dental Screening Dental Screen Date: 02/21/25 Did you have a dental visit in the last 12 months?: Yes Did you have a dental problem in the last 6 months where you did not have access to dental care?: No Was dental information given to patient?: Patient has dentist HPI HTN, hyperlipidemia, GERD HPI Details Patient comes in today for his follow up visit States that he feels okay He denies any headaches but he still has on and off dizziness He stopped taking his Amlodipine back in October 2024 to see if this will help with his dizziness and feels that it has helped somewhat Denies any chest pains, no increased shortness of breath No nausea/vomiting, no abdominal pain No change in bowel habits noted He had his follow up labs done last week - to discuss his results [facility] Medical History Branch retinal vein occlusion Vitamin D deficiency Washington's esophagus with dysplasia Kyphoscoliosis Eosinophilia Pure hypercholesterolemia Benign essential hypertension GERD without esophagitis Surgical History History of esophagogastroduodenoscopy (EGD) H/O colonoscopy Hx of appendectomy (~1978) Family History Father Dementia Mother Heart disease Social History Housing: House Alcohol intake: current Alcohol intake frequency: does not drink Patient Tobacco Use Status: Never used Tobacco e-Cigarette/Vaping Use: Never Used Second Hand Smoke Exposure: Yes service: No Current occupational status: retired Cognitive needs: No Hearing needs: No Vision needs: Yes Questionnaire PHQ-9 Over the last 2 weeks, how often have you been bothered by any of the following problems? 1. Little interest or pleasure in doing things: not at all 2. Feeling down, depressed, or hopeless: not at all 3. Trouble falling or staying asleep, or sleeping too much: several days 4. Feeling tired or having little energy: several days 5. Poor appetite or overeating: not at all 6. Feeling bad about yourself - or that you are a failure or have let yourself or your family down: not at all 7. Trouble concentrating on things, such as reading the newspaper or watching television: not at all 8. Moving or speaking so slowly that other people could have noticed. Or the opposite - being so fidgety or restless that you have been moving around a lot more than usual: not at all 9. Thoughts that you would be better off or of hurting yourself in some way: not at all Total score: 2 Depression Screening Interpretation: Negative Depression Screening Done: Yes 79476 - PHQ-9 Billing: Yes Source: Developed by Drs. Domenico Martin, Kaylah Wiley, Jayce Centeno and colleagues, with an educational raul from [employer]. Thrive Questionnaire Date Thrive assessed: 08/23/24 I am a: Patient What is your living situation today?: I have a steady place to live Within the past 12 months, did the food you bought not last and you didn't have the money to get more?: I choose not to answer this question Within the past 12 months, did you worry whether your food would run out before you got money to buy more?: I choose not to answer this question Do you have trouble paying for medicines?: I choose not to answer this question Do you have trouble getting transportation to medical appointments?: I choose not to answer this question Do you have trouble paying your heating and electricity bill?: No Do you have trouble taking care of your child, family member or friend?: I choose not to answer this question Do you have trouble with day-to-day activities such as bathing, preparing meals, shopping, managing finances, etc.?: I choose not to answer this question Are you currently unemployed and looking for a job?: I choose not to answer this question Are you interested in more education?: I choose not to answer this question Please select the resources that you would like help with: None Currently or been in a relationship where the following occur: I choose not to answer THRIVE Score: 0 AUDIT C Alcohol Use Questionnaire (AUDIT-C) 1. How often do you have a drink containing alcohol?: Never Total Score: 0 Score Reviewed/Action Taken: Yes JOSE-7 AMB Questionnaire JOSE-7 Date JOSE - 7 assessed: 08/23/24 Feeling nervous, anxious, or on edge: 1 = Several days Not being able to stop or control worryin = Several days Worrying too much about different things: 1 = Several days Trouble relaxin = Several days Being so restless that it is hard to sit still: 1 = Several days Becoming easily annoyed or irritable: 0 = Not at all Feeling afraid as if something awful might happen: 0 = Not at all Total JOSE-7 score (0-4 normal; 5-9 mild; 10-14 moderate; 15-21 severe): 5 Source: Developed by Drs. Domenico Martin, Kaylah Wiley, Jayce Centeno and colleagues, with an educational raul from [employer]. Review of Systems Const Denies chills, Denies fatigue, Denies fever(s) and Denies headache(s) ENT Denies dysphagia, Reports dizziness (on and off), Denies otalgia, Denies headache(s), Denies neck pain, Denies odynophagia and Denies sore throat Card Denies chest pain, Denies irregular heart rhythm, Denies palpitations and Denies dyspnea Resp Denies chest congestion, Denies cough and Denies dyspnea GI Denies abdominal pain, Denies constipation, Denies dysphagia, Denies heartburn, Denies diarrhea, Denies nausea, Denies odynophagia and Denies vomiting Denies difficulty urinating, Denies dysuria and Denies urinary frequency Musc Denies back pain, Denies arthralgias and Denies neck pain Skin/Breast Denies rash Neuro Reports dizziness (on and off), Denies headache(s) and Denies paresthesias Endo Denies fatigue and Denies palpitations Physical exam (Primary Care) Vital Signs: Last Vital Signs Temp 97.3 F 02/21/25 11:23 Pulse 89 02/21/25 11:23 Resp 18 02/21/25 11:23 BP 130/60 02/21/25 11:23 Pulse Ox 94 02/21/25 11:23 Oxygen Delivery Method Room Air 02/21/25 11:23 BMI result Body Mass Index 21.4 Tobacco/Smoking Status: Tobacco use Status Tobacco use date assessed 02/21/25 02/21/25 11:33 Patient Tobacco Use Status Never used Tobacco 02/21/25 11:33 e-Cigarette/Vaping Use Never Used 02/21/25 11:33 PHQ-9: PHQ-9 Score PHQ-9: Total score 2 02/21/25 11:53 Depression Screening Interpretation: Negative Thrive Assessment: Date of Thrive Assessment Date Thrive assessed 08/23/24 02/21/25 11:33 Currently or been in a relationship where the following occur: I choose not to answer Const General: no acute distress and alert HENMT Ears: TM's normal bilaterally and EAC's normal Throat: Yes posterior oropharynx normal and Yes tonsils normal (no TP congestion) Neck Neck: Yes no lymphadenopathy and Yes supple Thyroid: Thyroid normal Resp Auscultation: clear to auscultation bilaterally, no rales and no wheezes Cardio Rate: regular rate Rhythm: regular rhythm Heart sounds: no murmurs GI Palpation (GI): Soft to palpation and nontender Auscultation: normal bowel sounds General: Yes no CVA tenderness Back/Spine/Pelvis Back: no CVA tenderness Thoracic/Lumbar Spine: kyphosis and No lumbar spinal tenderness Skin Rashes: no rashes Extrem General: Yes no clubbing, cyanosis or edema Results Reviewed Results Reviewed: Laboratory Tests 02/14/25 02/14/25 13:25 13:30 WBC 6.2 Hgb 13.9 L Hct 42.6 Plt Count 334 Sodium 141 Potassium 4.3 Creatinine 1.07 Estimated GFR > 60 Fasting Glucose 102 H Calcium 9.1 AST 23 ALT 23 Triglycerides 56 Cholesterol 159 LDL Cholesterol, Calc 93 HDL Cholesterol 55 TSH 2.09 Ur Specific [place] 1.015 Urine Protein Negative Urine Glucose (UA) Negative Urine Blood Negative Urine Nitrite Negative Ur Leukocyte Esterase Negative Coding Level of Care Code Est Pt Level 4 (36243) Diagnoses Benign essential hypertension I10 Pure hypercholesterolemia E78.00 Dizziness of unknown cause R42 Washington's esophagus with dysplasia K22.719 Kyphoscoliosis M41.9 Anemia, unspecified type D64.9 Anemia type: unspecified type Vitamin D deficiency E55.9 Branch retinal vein occlusion of left eye with macular edema H34.8320 Laterality: left Retinal vein occlusion complication status: with macular edema Additional Codes PHQ-9 - 85356 - PHQ-9 Billing: Yes ([id number]) Assessment & Plan Assessment & Plan (1) Benign essential hypertension: Code(s): I10 - Essential (primary) hypertension Category: Medical Plan: Reinforced low sodium diet - goal is systolic BP of at least 130 to 140 mm or less Continue Lisinopril 40 mg QD; he stopped taking his Amlodipine 10 mg QD back in October 2024 to see if this will relieve or improve his recurrent dizziness He feels that his symptoms have improved somewhat since he quit taking Amlodipine in October 2024 and as his blood pressure reading today is acceptable, will continue to HOLD his Amlodipine at this time Patient is reminded to continue monitoring his blood pressure regularly Chest x-rays and echocardiogram done a couple of years ago both came back normal Renal doppler done in 2022 revealed no significant findings - there is elevated proximal renal artery velocity of 214 cm/s but other parameters are normal. Findings are suspicious for mild stenosis at the origin. Normal left renal Doppler parameters suggestive of no renal artery stenosis. Elevated mid aortic velocity may be secondary to atherosclerosis and essential hypertension (2) Pure hypercholesterolemia: Code(s): E78.00 - Pure hypercholesterolemia, unspecified Category: Medical Plan: Results of his labs done last week reviewed and discussed with patient Reinforced low cholesterol diet Continue Rosuvastatin 5 mg QD Will recheck his labs and fasting lipids in 6 months for follow up (3) Dizziness of unknown cause: Code(s): R42 - Dizziness and giddiness Category: Medical Plan: Work ups done so far, including chest x-rays, echocardiogram, renal doppler and carotid US, all came back normal/negative Myocardial perfusion study done in January 2023 also came out normal - (+) normal myocardial perfusion; Gated LVEF is 70%. Transient ischemic dilatation is not present He was also referred to and seen by ENT (Dr. 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 Bailey as scheduled Continue Omeprazole 20 mg BID (5) Kyphoscoliosis: Code(s): M41.9 - Scoliosis, unspecified Category: Medical Plan: Patient's kyphoscoliosis has been progressing over the past few years He has been advised that if this continues to get worse, it can significantly impact his overall lung volume and affect his breathing Chest x-rays in August 2021 revealed (+) thoracic kyphosis with degenerative changes in the spine. Otherwise, no significant abnormality is noted involving the heart, lungs, mediastinum, bony thorax or soft tissues Repeat chest x-rays in June 2022 also came out normal Discussed that we are not exactly sure why his kyphoscoliosis has been progressing lately but he does NOT appear to have any of the more common causes of kyphoscoliosis, including neurofibromatosis, ankylosing spondylitis, Pott's disease, paralytic poliomyelitis, Marfan syndrome and the mucopolysaccharidoses As he did not seem to have had this when he was younger, this technically rules out heredity as a cause and his problem may be more of an acquired condition due to years of poor posture (postural kyphosis) and the only recommendation we can give him at this time is to try to make a more conscious effort to sit or stand up straight as much as he can all the time (6) Anemia: Code(s): D64.9 - Anemia, unspecified Category: Medical Qualifiers: Anemia type: unspecified type Qualified Code(s): D64.9 - Anemia, unspecified Plan: His anemia is mostly mild and his iron indices have been normal He has eosinophilia at times, possibly due to allergies Hgb electrophoresis done back in April 2023 came out NORMAL (7) Vitamin D deficiency: Code(s): E55.9 - Vitamin D deficiency, unspecified Category: Medical Plan: Continue Vitamin D3 1000 units QD (8) Branch retinal vein occlusion: Code(s): H34.8392 - Tributary (branch) retinal vein occlusion, unspecified eye, stable Category: Medical Qualifiers: Laterality: left Retinal vein occlusion complication status: with macular edema Qualified Code(s): H34.8320 - Tributary (branch) retinal vein occlusion, left eye, with macular edema Plan: Follow up with the retina specialist as scheduled for continuing management Plan To return in 6 months for his next annual physical examination Orders: Orders Lipid Panel 6 Months E78.00 - Pure hypercholesterolemia, unspecified, Z00.00 - Encounter for general adult medical examination without abnormal findings TSH reflex Free T4 6 Months E78.00 - Pure hypercholesterolemia, unspecified, Z00.00 - Encounter for general adult medical examination without abnormal findings Vitamin B12 and Folate 6 Months E53.8 - Deficiency of other specified B group vitamins, Z00.00 - Encounter for general adult medical examination without abnormal findings Prostate Specific Antigen 6 Months N40.0 - Benign prostatic hyperplasia without lower urinary tract symptoms, Z00.00 - Encounter for general adult medical examination without abnormal findings Hemoglobin A1c 6 Months R73.01 - Impaired fasting glucose, Z00.00 - Encounter for general adult medical examination without abnormal findings Complete Blood Count Auto Diff 6 Months D64.9 - Anemia, unspecified, Z00.00 - Encounter for general adult medical examination without abnormal findings Comprehensive [place]. Panel Fast 6 Months E78.00 - Pure hypercholesterolemia, unspecified, Z00.00 - Encounter for general adult medical examination without abnormal findings UA CC w/rflx Micro + Cult 6 Months R30.0 - Dysuria, Z00.00 - Encounter for general adult medical examination without abnormal findings Vitamin D 25-OH Total 6 Months E55.9 - Vitamin D deficiency, unspecified, Z00.00 - Encounter for general adult medical examination without abnormal findings
--- OUTSIDE RECORDS SUMMARY | 2025-02-21 14:44 | XMS_ITS | Patient Health Record ---
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) Active confirmed Problem Long-term current use of antiplatelet drug (405085325259383) medical terminologist (current) use of aspirin (Z79.82) Active confirmed Problem Gastroesophageal reflux disease without esophagitis (857782895) Gastroesophageal reflux disease without esophagitis (K21.9) Active confirmed Problem Benign neoplasm of stomach (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 [place] [phone] [id number] DRAKE RODRIGUEZ Self - patient is the insured Medical (General) History Medical History History ICD Code elevated cholesterol gastroesophageal reflux dise ase, EGD 05/21, focal intestinal metaplasia, repeat EGD 2 years hypertension Colonoscopy 02/19/17, normal, ten-year f ollowup Retinal vein branch occlusion left eye Surgical History Surgery Date(Month/Year) appendectomy partial colectomy after complicated appe ndicitis
--- OUTSIDE RECORDS SUMMARY | 2025-02-21 14:44 | XMS_ITS | Data Portability ---
Author Organization [place] [facility], [facility] Address [address] [address] Care Team Providers Care Distribution Agent Name Role Phone JOSE C PHILLIPS Primary Care Provider Assessment No assessment recorded. Plan of Treatment Reminders Order Date Submit Date Provider Last Modified By Organization Details Last Modified Time Details Appointments None recorded. Lab None recorded. Referral None recorded. Procedures None recorded. Surgeries None recorded. Imaging MR, angiogram, head + neck, w/wo contrast - [id number] brain no contrast 10218 MRA neck with contrast 2023 024 [email or web address] [facility] ([facility]), [address] [place], [address], 13:38:38 Medication Orders None recorded. Patient TargetsNo targets recorded. Patient InstructionsNo instructions recorded. Reason for Referral None Reported. Results Created Date Observation Date Name Description Value Unit Range Abnormal Flag Note LastModifiedBy Organization Detail LastModifiedTime 11/27/1911/26/2023 MR, angio gram, head + neck, w/wo contr ast No observ ation record ed. [address] (Medical Records) [address] [place], [address], 12/02/2023 09:18:32 11/27/19 24 11/26/2023 MR, angio gram, head + neck, w/wo contr ast No observ ation record ed. [address] (Medical Records) [address] [place], [address], 12/02/2023 09:18:32 12/21/19 24 09/23/2023 shiloi ng/brenda rawls tic resul t No observ ation record ed. [email or web address] Not Available 16:44:16 Result Notes None recorded. Problems Name Problem SNOMED Code Status Onset Date Resolution Date Notes Provider Name and Address Organization Details Recorded Time Sensorineural hearing loss of bilateral ears 508662111 Active 2023 JAMAL GABRIEL [address] [place] [address], [place], [phone], [facility] - [facility] 14:57:58 Dizziness and giddiness 753451273 Active 2023 IKE OYO MD [address] [place] [address], [place], [address], [facility] - [facility] 16:27:26 Finding of general balance 535466670 Active 2023 IKE YOO MD [address] [place] [address], [place], [phone], [facility] - [facility] 16:57:34 Problem Notes None recorded. Procedures Surgical History Date Name Laterality Status Provider Name and Address Organization Details Recorded Time 09/23/19 24 Comp Audio with Tymps - 48171 & 25592 completed JAMAL GABRIEL [address] [facility],[address], [address], [facility] - [facility] 09/23/2023 14:57:44 Appendectomy completed Zenobia Aldrich [facility] 09/23/2023 14:23:01 Imaging Results None recorded. Procedure [...] History Condition Response Anemia Y Arthritis Y Hypertension Y Anxiety Y Depression Y Past Encounters Encounter ID Performer Location Encounter Start Date Encounter Closed Date Diagnosis/Indication Diagnosis SNOMED-CT Code Diagnosis ICD10 Code Diagnosis IMO Codes Diagnosis Note [id number] IKE YOO MD [facility] [address] [address] 09/23/2023 13:37:40 09/23/2023 16:40:53 Sensorineural hearing loss of bilateral ears 143347501 H90.3 Audiologic al evaluation results:Ri ght ear:Normal [...] aging and noise exposure. Dizziness and giddiness 297305530 R42 Finding of general balance 708556337 R26.81 72-year-ol d male with chronic generalize [...] Mehta Member ID Guarantor Name 09/23/2023 1 [facility] Ender Castellanos [id number] Ender Castellanos 09/27/[address] [facility] (HMO) Ender Castellanos [id number] Ender Castellanos Notes Date Note Type Note [...] upon standing up quickly. IKE YOO MD [address] [place] [address], [phone], [facility] - [facility] 09/23/2023 17:01:32
== END 2025-02-21 11:56 | disposition home or self-care (01) ==
LOC: HO.HMCH 11:02
PROVIDERS: PCP Internal Medicine; Visit Provider Internal Medicine
DX: I10 Essential (primary) hypertension (principal); E78.00 Pure hypercholesterolemia, unspecified; R42 Dizziness and giddiness; H34.8320 Tributary (branch) retinal vein occlusion, left eye, with macular edema; K22.719 Barrett's esophagus with dysplasia, unspecified; M41.9 Scoliosis, unspecified; D64.9 Anemia, unspecified; E55.9 Vitamin D deficiency, unspecified

== ENCOUNTER → 2025-02-21 11:01 | Outpatient (BNVA) | payer MEDICARE, SELFPAY | PROVIDERS: PCP Internal Medicine; Visit Provider Internal Medicine | DX: I10 Essential (primary) hypertension (principal); E78.5 Hyperlipidemia, unspecified; K21.9 Gastro-esophageal reflux disease without esophagitis; E78.00 Pure hypercholesterolemia, unspecified; R42 Dizziness and giddiness; K22.719 Barrett's esophagus with dysplasia, unspecified; M41.9 Scoliosis, unspecified; D64.9 Anemia, unspecified; E55.9 Vitamin D deficiency, unspecified; H34.8320 Tributary (branch) retinal vein occlusion, left eye, with macular edema; R30.0 Dysuria | CPT/HCPCS: 96127; 99212 ==